=== PATIENT | male | born 1975 | race African-American/Black ===

== ENCOUNTER 2017-06-03 15:15 | Inpatient (IN) | payer MEDICARE, MEDICAID ==
[~2017-06-03] VITALS: Ht 180.3 cm; Wt 136.1 kg
[~2017-06-03 15:15] MED LIST: ABILIFY20 MG ORAL; ADVAIR 100-501 EACH INH; BIAXIN500 MG ORAL; CLINDAMYCIN HC150 MG ORAL; CYMBALTA60 MG ORAL; FLONASE1 SPRAYS NASAL; NEXIUM40 MG ORAL; PERFOROMIS20 MCG/2 M IH; PROAIR HFA8.5 GM INH
[2017-06-03] MEDS ORDERED: PROAIR HFA8.5 GM INH (15:18)
[2017-06-03] MEDS ORDERED: POTASSIUM99 M3 PO (15:18)
[2017-06-03] MEDS ORDERED: FUROSEMIDE80 M1 ORAL (15:18)
[2017-06-03] MEDS ORDERED: Solu-MEDROL 125mg Inj IVP ONE (15:30)
[2017-06-03] MEDS ORDERED: Albuterol ud Inhalation HHN ONE (15:30)
[2017-06-03] MEDS ORDERED: Ipratropium 0.02% Inh Soln 2.5ml UD HHN ONE (15:30)
[2017-06-03 15:40] VITALS: BP 122/103
[2017-06-03 16:30] LABS: ANION GAP 5 mmol/L (5-15); BLOOD UREA NITROGEN 19 mg/dL (7-18); CALCIUM 9.1 MG/DL (8.5-10.1); CARBON DIOXIDE 35 MMOL/L (21-32); CHLORIDE 101 MMOL/L (98-107); CREATININE 1.2 MG/DL (0.55-1.30); POTASSIUM 4.2 MMOL/L (3.5-5.1); SODIUM 141 MMOL/L (136-145)
--- NOTE | 2017-06-03 16:30 | Diagnostic Imaging Report ---
Indication: Shortness of breath Technique: XRAY Chest 1v Comparison: None Findings: Patient is rotated to the left. Heart is enlarged. There is evidence of prior median sternotomy. There is obscuration the entire left hemithorax. The mediastinal structures are slightly shifted to the left. There is small right pleural effusion and right basilar atelectasis/consolidation. Prominent gas bubble noted within the left hemithorax may be related to large hiatal hernia or additional congenital or acquired diaphragmatic herniation. Impression: Near complete white out of the left hemithorax. Findings may be related to large layering left pleural effusion. There is minimal leftward mediastinal shift suggesting a degree of lobar collapse. Small right pleural effusion with right basilar atelectasis/consolidation. Pneumonia in the consolidated lung can't be excluded. Cardiomegaly. Bowel loops projecting over the left chest may related to large hiatal hernia or additional congenital or acquired diaphragmatic herniation. CT could provide a better assessment.
[2017-06-03 16:31] LABS: BASOPHILS % (AUTO) 1.4 % (0.0-2.0); EOSINOPHILS % (AUTO) 4.5 % (0.0-3.0); HEMATOCRIT 42.7 % (42.0-52.0); MEAN CORPUSCULAR VOLUME 94 FL (80-99); MONOCYTES % (AUTO) 10.1 % (1.0-10.0); PLATELET COUNT 205 K/UL (150-450); RED BLOOD COUNT 4.56 M/UL (4.70-6.10); RED CELL DISTRIBUTION WIDTH 13.7 % (11.6-14.8); WHITE BLOOD COUNT 4.5 K/UL (4.8-10.8)
--- NOTE | 2017-06-03 16:39 | Emergency Room Report ---
History of Present Illness General Chief Complaint: Upper Respiratory Illness Source: EMS Present Illness HPI 42-year-old M presents ED complaining of shortness of breath. States he's been having increased shortness of breath for the last few days. Has history of COPD. Status post left lobectomy from "a mass" in his chest in 2002. h/o testicular cancer. States he's been using it was a treatment at home without relief. Also has history of CHF. Has increased leg swelling. Denies fevers or chills. Denies chest pain. No other aggravating or relieving factors. Denies any other associated symptoms Allergies: Coded Allergies: No Known Allergies (Unverified , 09/09/14) Patient History Past Medical History: CHF, COPD, other - testicular cancer Past Surgical History: none, other - L lobectomy Pertinent Family History: none Social History: Denies: smoking, alcohol use, drug use Immunizations: UTD Reviewed Nursing Documentation: PMH: Agreed, PSxH: Agreed Nursing Documentation-PMH Past Medical History: No History, Except For Hx Cardiac Problems: Yes - CHF Hx Hypertension: No Hx Pacemaker: No Hx Asthma: Yes Hx COPD: No - 1 LUNG Hx Diabetes: No Hx Cancer: Yes - lung ca, left lung removed Hx Gastrointestinal Problems: No Hx Dialysis: No Hx Neurological Problems: No Hx Cerebrovascular Accident: No Hx Seizures: No Review of Systems All Other Systems: negative except mentioned in HPI Physical Exam Vital Signs Date Time Temp Pulse Resp B/P (MAP) Pulse Ox O2 Delivery O2 Flow Rate FiO2 06/03/17 15:12 89 20 181/102 99 Room Air 06/03/17 15:40 3.0 06/03/17 15:40 98.0 06/03/17 16:13 32 Sp02 EP Interpretation: reviewed, normal General Appearance: alert, GCS 15, non-toxic, mild distress, obese Head: normocephalic, atraumatic Eyes: bilateral eye normal inspection, bilateral eye PERRL ENT: hearing grossly normal, normal pharynx, no angioedema, normal voice Neck: full range of motion, supple/symm/no masses Respiratory: decreased breath sounds, crackles, speaking full sentences, wheezing Cardiovascular #1: regular rate, rhythm, no edema Cardiovascular #2: 2+ carotid (R), 2+ carotid (L), 2+ radial (R), 2+ radial (L) , 2+ dorsalis pedis (R), 2+ dorsalis pedis (L) Gastrointestinal: normal bowel sounds, non tender, soft, non-distended, no guarding, no rebound Rectal: deferred Genitourinary: normal inspection, no CVA tenderness Musculoskeletal: back normal, gait/station normal, normal range of motion, non- tender, swelling - 2+ pitting edema bilateral LEs Neurologic: alert, oriented x3, responsive, motor strength/tone normal, sensory intact, speech normal Psychiatric: judgement/insight normal, memory normal, mood/affect normal, no suicidal/homicidal ideation Reflexes: 3+ bicep (R), 3+ bicep (L), 3+ tricep (R), 3+ tricep (L), 3+ knee (R) , 3+ knee (L) Skin: normal color, no rash, warm/dry, well hydrated Lymphatic: no adenopathy Medical Decision Making Diagnostic Impression: Primary Impression: COPD exacerbation Additional Impressions: CHF (congestive heart failure) Qualified Codes: I50.9 - Heart failure, unspecified S/P lobectomy of lung ER Course Hospital Course 42-year-old M presenting to ED with SOB. h/o COPD and CHF Differential diagnoses include: Pneumonia, CHF exacerbation, pneumothorax, fluid overload Clinical course Patient placed on stretcher. On threat monitoring analyst with stable vitals. After initial history and physical, I ordered nebulizer treatments, steroids. I ordered labs, IV fluids, EKG, chest x-ray, blood cultures, UA. Labs - no leukocytosis noted, hemoglobin/hematocrit stable, electrolytes okay, lactate okay, troponins negative, influenza negative CXR - s/p lobectomy on left, R effusion vs pna. EKG - NSR, no acute ischemic changes interpreted by me Lasix given. Steroids given. Antibiotics given. Case discussed with Dr. Coelho and he agreed to the patient to his service for further care and support I feel this is a highly complex case requiring extensive working including EKG/ Rhythm strip, Xray/CT/US, Blood/urine lab work, repeat exams while in ED, and administration of strong opiates/narcotics for pain control, admission to hospital or close patient follow up. Diagnosis - COPD exacerbation, CHF, s/p lobectomy of lung Patient admitted to telemetry in serious condition Labs Test 06/03/17 15:50 White Blood Count 4.5 K/UL (4.8-10.8) Red Blood Count 4.56 M/UL (4.70-6.10) Hemoglobin 13.0 G/DL (14.2-18.0) Hematocrit 42.7 % (42.0-52.0) Mean Corpuscular Volume 94 FL (80-99) Mean Corpuscular Hemoglobin 28.5 PG (27.0-31.0) Mean Corpuscular Hemoglobin Concent 30.4 G/DL (32.0-36.0) Red Cell Distribution Width 13.7 % (11.6-14.8) Platelet Count 205 K/UL (150-450) Mean Platelet Volume 7.1 FL (6.5-10.1) Neutrophils (%) (Auto) 69.0 % (45.0-75.0) Lymphocytes (%) (Auto) 15.0 % (20.0-45.0) Monocytes (%) (Auto) 10.1 % (1.0-10.0) Eosinophils (%) (Auto) 4.5 % (0.0-3.0) Basophils (%) (Auto) 1.4 % (0.0-2.0) Sodium Level 141 MMOL/L (136-145) Potassium Level 4.2 MMOL/L (3.5-5.1) Chloride Level 101 MMOL/L (98-107) Carbon Dioxide Level 35 MMOL/L (21-32) Anion Gap 5 mmol/L (5-15) Blood Urea Nitrogen 19 mg/dL (7-18) Creatinine 1.2 MG/DL (0.55-1.30) Estimat Glomerular Filtration Rate > 60 mL/min (>60) Glucose Level 152 MG/DL (74-106) Calcium Level 9.1 MG/DL (8.5-10.1) EKG Diagnostic Results Rate: normal Rhythm: NSR ST Segments: no acute changes ASA given to the pt in ED: No Rhythm Strip Diag. Results EP Interpretation: yes Rhythm: NSR, no PVC's, no ectopy Chest X-Ray Diagnostic Results Chest X-Ray Diagnostic Results : Chest X-Ray Ordered: Yes # of Views/Limited/Complete: 1 View Indication: Shortness of Breath EP Interpretation: Yes Interpretation: no pneumothorax, other - s/p lobectomy on left. R effusion ? PNA Impression: Other - CHF, ?PNA Electronically Signed by: Electronically signed by Michael iWlks MD Last Vital Signs Date Time Temp Pulse Resp B/P (MAP) Pulse Ox O2 Delivery O2 Flow Rate FiO2 06/03/17 16:24 84 19 100 Nasal Cannula 3.0 32 06/03/17 15:40 98.0 122/103 Status: improved Disposition: ADMITTED INPATIENT Condition: Serious Referrals: NOT CHOSEN IPA/,REFERRING (PCP) MICHAEL WILKS M.D. Jun 03, 2017 16:39
[2017-06-03 16:45] LABS: ALANINE AMINOTRANSFERASE 15 U/L (12-78); ALBUMIN 3.7 G/DL (3.4-5.0); ALBUMIN/GLOBULIN RATIO 1.1 (1.0-2.7); ALKALINE PHOSPHATASE 77 U/L (46-116); ASPARTATE AMINO TRANSFERASE 25 U/L (15-37); BILIRUBIN,TOTAL 0.4 MG/DL (0.2-1.0); CKMB 2.6 NG/ML (0.0-3.6); CREATINE KINASE 234 U/L (26-308)
[2017-06-03 17:11] VITALS: BP 110/78
[2017-06-03 17:59] LABS: APPEARANCE,URINE CLEAR; BILIRUBIN, URINE NEGATIVE (NEGATIVE); COLOR,URINE PALE YELLOW; GLUCOSE, URINE (UA) NEGATIVE (NEGATIVE); KETONES,URINE NEGATIVE (NEGATIVE); LEUKOCYTE ESTERASE ,URINE NEGATIVE (NEGATIVE); NITRITE,URINE NEGATIVE (NEGATIVE); PH,URINE 6.5 (4.5-8.0); PROTEIN,URINE NEGATIVE (NEGATIVE); UROBILINOGEN,URINE NORMAL MG/DL (0.0-1.0)
[2017-06-03 18:02] VITALS: BP 110/78
[2017-06-03] MEDS ORDERED: Nitroglycerin Subl 0.4mg tab SL PRN (18:30)
[2017-06-03] MEDS ORDERED: Promethazine/Codeine 5ml UD ORAL PRN (18:30)
[2017-06-03] MEDS ORDERED: LORazepam Inj 2mg/ml 1ml IV PRN (18:30)
[2017-06-03] MEDS ORDERED: Ketorolac 30mg Inj IV PRN (18:30)
[2017-06-03] MEDS ORDERED: ZOLPIDEM TARTRA10 MG (18:44)
[2017-06-03] MEDS ORDERED: ALBUTEROL2.5 MG/3 M INH (19:20)
[2017-06-03] MEDS ORDERED: POTASSIUM CHLO20 ME1 (19:21)
[2017-06-03] MEDS ORDERED: HYDROCODON-ACE1 EA13 (19:23)
[2017-06-03] MEDS ORDERED: NAPROXEN500 M2 (19:23)
[2017-06-03 20:00] VITALS: BP 111/68
[2017-06-03] MEDS ORDERED: Piperacillin/Tazobactam 2.25 GM in D5W 55 ML IV SCH (22:00)
[2017-06-03] MEDS: Albuterol/Ipratropium 3ml neb HHN PRN (22:00)
[2017-06-03] MEDS: Zoysn 3.37gm in NS 100ML IVPB SCH (22:18)
[2017-06-03] MEDS: Heparin 5000 units/ml inj SUBQ SCH (22:18)
[2017-06-03] MEDS: Theophylline ER 100mg ORAL SCH (22:30)
[2017-06-03] MEDS: Solu-MEDROL 125mg Inj IV SCH (23:52)
[2017-06-04] VITALS: BP 113/64
[2017-06-04 04:00] VITALS: BP 135/81
[2017-06-04] MEDS: Albuterol/Ipratropium 3ml neb HHN PRN ×3 (04:24→14:57)
[2017-06-04] MEDS: Zoysn 3.37gm in NS 100ML IVPB SCH ×3 (06:19→21:54)
[2017-06-04] MEDS: Solu-MEDROL 125mg Inj IV SCH ×3 (06:19→18:05)
[2017-06-04 08:00] VITALS: BP 129/73
[2017-06-04] MEDS: DULoxetine 30mg cap ORAL SCH (09:00)
[2017-06-04] MEDS: ARIPiprazole 10mg tab ORAL SCH (09:00)
[2017-06-04] MEDS: Theophylline ER 100mg ORAL SCH ×2 (09:41→21:55)
[2017-06-04] MEDS: Heparin 5000 units/ml inj SUBQ SCH ×2 (09:56→21:57)
[2017-06-04 12:00] VITALS: BP 106/56
--- NOTE | 2017-06-04 14:35 | History and Physical ---
History of Present Illness General Date patient seen: Jun 04, 2017 Reason for Hospitalization: Upper Respiratory Illness Present Illness HPI 42-year-old M with hx of testicular cancer more than 10 years ago, CHF, presented to ED complaining of shortness of breath. States he's been having increased shortness of breath for the last few days. Status post left lobectomy from "a mass" in his chest in 2002. Has increased leg swelling. Denies fevers or chills. Denies chest pain. Allergies: Coded Allergies: No Known Allergies (Unverified , 09/09/14) Medication History Scheduled Furosemide* (Lasix*), 80 MG ORAL DAILY, (Reported) Hydrocodone Bit/Acetaminophen 10-325* (Hydrocodon-Acetaminophn 10-325*), TID, ( Reported) Zolpidem Tartrate* (Zolpidem Tartrate*), 10 MG QHS, (Reported) Scheduled PRN Albuterol Sulfate* (Proair Hfa*), 2 PUFFS INH Q6H PRN for Bronchospasm, ( Reported) Albuterol Sulfate* (Albuterol Sulfate Hhn*), 3 ML INH Q6H PRN for Shortness of Breath, (Reported) Miscellaneous Medications Naproxen* (Naproxen*), (Reported) Potassium Chloride* (K-Dur*), (Reported) Discontinued Medications Albuterol Sulfate* (Proair Hfa*), Unknown Dose INH Q6H, (Reported) Discontinued Reason: Prescription changed Aripiprazole* (Abilify*), 20 MG ORAL DAILY, (Reported) Discontinued Reason: Pt stopped taking med Clarithromycin (Clarithromycin), 500 MG ORAL TWICE A DAY, (Reported) Discontinued Reason: Pt stopped taking med Clindamycin Hcl* (Clindamycin Hcl*), 450 MG ORAL TID Discontinued Reason: Pt stopped taking med Duloxetine Hcl* (Cymbalta*), 60 MG ORAL DAILY, (Reported) Discontinued Reason: Pt stopped taking med Esomeprazole Magnesium (Nexium), 40 MG ORAL DAILY, (Reported) Discontinued Reason: Pt stopped taking med Fluticasone Propionate (Fluticasone Propionate), 1 SPRAY NASAL DAILY, (Reported) Discontinued Reason: Pt stopped taking med Fluticasone/Salmeterol (Advair 100-50 Diskus), 1 PUFF INH BID, (Reported) Discontinued Reason: Pt stopped taking med Formoterol Fumarate (Perforomist), 20 MCG IH Q6HR PRN for Bronchospasm, ( Reported) Discontinued Reason: Pt stopped taking med Potassium Gluconate (Potassium), Unknown Dose PO, (Reported) Discontinued Reason: Pt stopped taking med Patient History Healthcare decision maker Resuscitation status Full Code Advanced Directive on File Past Medical/Surgical History Past Medical/Surgical History: (1) COPD exacerbation (2) CHF (congestive heart failure) (3) S/P lobectomy of lung Review of Systems All Other Systems: negative except mentioned in HPI Physical Exam General Appearance: WD/WN Lines, tubes and drains: peripheral Neck: non-tender, normal inspection Respiratory/Chest: chest wall non-tender, lungs clear, normal breath sounds Cardiovascular/Chest: normal peripheral pulses, normal rate Last 24 Hour Vital Signs Date Time Temp Pulse Resp B/P (MAP) Pulse Ox O2 Delivery O2 Flow Rate FiO2 06/04/17 08:37 89 20 99 Nasal Cannula 4.0 06/04/17 08:30 72 22 Nasal Cannula 3.0 32 06/04/17 08:30 80 20 99 Nasal Cannula 3.0 32 06/04/17 08:00 97.2 88 22 129/73 98 06/04/17 05:19 Nasal Cannula 4.0 06/04/17 05:19 99 Nasal Cannula 4.0 06/04/17 04:35 87 19 100 Nasal Cannula 4.0 06/04/17 04:26 82 22 99 Nasal Cannula 3.0 32 06/04/17 04:00 97.2 74 20 135/81 95 06/04/17 04:00 72 06/04/17 00:00 97.0 83 20 113/64 99 06/04/17 00:00 76 06/03/17 22:03 89 19 100 Nasal Cannula 3.0 32 06/03/17 22:00 89 22 99 Nasal Cannula 3.0 32 06/03/17 20:46 96 06/03/17 20:00 97.5 74 20 111/68 95 06/03/17 18:02 98.0 79 21 110/78 97 Nasal Cannula 3.0 32 06/03/17 17:11 98.0 82 22 110/78 98 Nasal Cannula 3.0 06/03/17 16:24 84 19 100 Nasal Cannula 3.0 32 06/03/17 16:21 70 21 Nasal Cannula 3.0 32 06/03/17 16:13 75 22 96 Nasal Cannula 3.0 32 06/03/17 15:40 98.0 84 22 122/103 100 Nasal Cannula 3.0 06/03/17 15:40 89 20 Nasal Cannula 3.0 06/03/17 15:12 89 20 181/102 99 Room Air Intake and Output 06/03/17 06/04/17 19:00 07:00 Intake Total 770 ml Balance 770 ml Intake Oral 770 ml # Voids 3 Laboratory Tests Test 06/03/17 15:50 06/03/17 17:37 White Blood Count 4.5 K/UL (4.8-10.8) L Red Blood Count 4.56 M/UL (4.70-6.10) L Hemoglobin 13.0 G/DL (14.2-18.0) L Hematocrit 42.7 % (42.0-52.0) Mean Corpuscular Volume 94 FL (80-99) Mean Corpuscular Hemoglobin 28.5 PG (27.0-31.0) Mean Corpuscular Hemoglobin Concent 30.4 G/DL (32.0-36.0) L Red Cell Distribution Width 13.7 % (11.6-14.8) Platelet Count 205 K/UL (150-450) Mean Platelet Volume 7.1 FL (6.5-10.1) Neutrophils (%) (Auto) 69.0 % (45.0-75.0) Lymphocytes (%) (Auto) 15.0 % (20.0-45.0) L Monocytes (%) (Auto) 10.1 % (1.0-10.0) H Eosinophils (%) (Auto) 4.5 % (0.0-3.0) H Basophils (%) (Auto) 1.4 % (0.0-2.0) Sodium Level 141 MMOL/L (136-145) Potassium Level 4.2 MMOL/L (3.5-5.1) Chloride Level 101 MMOL/L (98-107) Carbon Dioxide Level 35 MMOL/L (21-32) H Anion Gap 5 mmol/L (5-15) Blood Urea Nitrogen 19 mg/dL (7-18) H Creatinine 1.2 MG/DL (0.55-1.30) Estimat Glomerular Filtration Rate > 60 mL/min (>60) Glucose Level 152 MG/DL (74-106) H Lactic Acid Level 1.30 mmol/L (0.66-2.22) Calcium Level 9.1 MG/DL (8.5-10.1) Total Bilirubin 0.4 MG/DL (0.2-1.0) Aspartate Amino Transf (AST/SGOT) 25 U/L (15-37) Alanine Aminotransferase (ALT/SGPT) 15 U/L (12-78) Alkaline Phosphatase 77 U/L (46-116) Total Creatine Kinase 234 U/L (26-308) Creatine Kinase MB 2.6 NG/ML (0.0-3.6) Creatine Kinase MB Relative Index 1.1 Troponin I 0.000 ng/mL (0.000-0.056) Pro-B-Type Natriuretic Peptide 227 pg/mL (0-125) H Total Protein 7.1 G/DL (6.4-8.2) Albumin 3.7 G/DL (3.4-5.0) Globulin 3.4 g/dL Albumin/Globulin Ratio 1.1 (1.0-2.7) Urine Color Pale yellow Urine Appearance Clear Urine pH 6.5 (4.5-8.0) Urine Specific [place] 1.015 (1.005-1.035) Urine Protein Negative (NEGATIVE) Urine Glucose (UA) Negative (NEGATIVE) Urine Ketones Negative (NEGATIVE) Urine Occult Blood Negative (NEGATIVE) Urine Nitrite Negative (NEGATIVE) Urine Bilirubin Negative (NEGATIVE) Urine Urobilinogen Normal MG/DL (0.0-1.0) Urine Leukocyte Esterase Negative (NEGATIVE) Microbiology Date/Time Source Procedure Growth Status 06/03/17 16:20 Nasal Nares Influenza Types A,B Antigen (JAROD) - Final Complete Height (Feet): 5 Height (Inches): 11.00 Weight (Pounds): 300 Medications Current Medications Medications (Trade) Dose Ordered Sig/Kayla Route PRN Reason Start Time Stop Time Status Last Admin Dose Admin Albuterol/ Ipratropium (Albuterol/ Ipratropium) 3 ml EVERY 4 HOURS PRN HHN dyspnea 06/03/17 18:30 06/08/17 18:29 06/04/17 08:34 Aripiprazole (Abilify) 20 mg DAILY ORAL 06/04/17 09:00 07/04/17 08:59 Dextrose (Dextrose 50%) STAT PRN IV Hypoglycemia 06/03/17 18:30 07/03/17 18:29 Duloxetine HCl (Cymbalta) 60 mg DAILY ORAL 06/04/17 09:00 07/04/17 08:59 Heparin Sodium (Porcine) (Heparin 5000 units/ml) 5,000 units EVERY 12 HOURS SUBQ 06/03/17 21:00 07/03/17 20:59 06/04/17 09:56 Ketorolac Tromethamine (Toradol 30mg) 30 mg EVERY 8 HOURS PRN IV moderate pain 4-6 06/03/17 18:30 06/08/17 18:29 Lorazepam (Ativan 2mg/ml 1ml) 0.5 mg Q4H PRN IV For Anxiety 06/03/17 18:30 06/10/17 18:29 Methylprednisolone Sodium Succinate (Solu-MEDROL) 60 mg EVERY 6 HOURS IV 06/04/17 00:00 07/04/17 00:00 06/04/17 12:56 Morphine Sulfate (Morphine Sulfate) 2 mg EVERY 4 HOURS PRN IVP severe pain 7-10 06/03/17 18:30 06/10/17 18:29 Nitroglycerin (Ntg) 0.4 mg Q5M X 3 DOSES PRN SL Prn Chest Pain 06/03/17 18:30 07/03/17 18:29 Ondansetron HCl (Zofran) 4 mg Q6H PRN IVP Nausea & Vomiting 06/03/17 18:30 07/03/17 18:29 Piperacillin Sod/ Tazobactam Sod 3.375 gm/Sodium Chloride 110 ml @ 27.5 mls/hr Q8H IVPB 06/03/17 21:00 06/10/17 23:59 06/04/17 12:55 Promethazine HCl/ Codeine (Phenergan with Codeine) 5 ml EVERY 6 HOURS PRN ORAL cough 06/03/17 18:30 07/03/17 18:29 Temazepam (Restoril) 15 mg HSPRN PRN ORAL Insomnia 06/03/17 18:30 06/10/17 18:29 06/04/17 01:27 Theophylline ([place]-Dur) 100 mg EVERY 12 HOURS ORAL 06/03/17 21:00 07/03/17 20:59 06/04/17 09:41 Assessment/Plan Problem List: (1) Pleural effusion ICD Codes: J90 - Pleural effusion, not elsewhere classified SNOMED: 87454609 (2) CHF (congestive heart failure) ICD Codes: I50.9 - Heart failure, unspecified SNOMED: 98492445 Qualifiers: Qualified Codes: I50.9 - Heart failure, unspecified (3) COPD exacerbation ICD Codes: J44.1 - Chronic obstructive pulmonary disease with (acute) exacerbation SNOMED: 497946603 (4) S/P lobectomy of lung ICD Codes: Z90.2 - Acquired absence of lung [part of] SNOMED: 316634599, 64319645, 788061787 Assessment/Plan lasix respiratory treatment echo avoid thoracentesis, since pt might have trapped lung cardio to see. GENEVA HOOPER Jun 04, 2017 14:35
[2017-06-04 16:00] VITALS: BP 127/97
--- NOTE | 2017-06-04 16:08 | Cardiology Progress Note ---
Assessment/Plan Assessment/Plan [id number] asthma with exacerbation left sided pleural effusion ? chronicity s/p lung resection fo r testicular cancer obesity uri? (influenza seem ruled out) await echo not have sign or sx of left heart failue need echo to evaluate right and left ventricular function / pathology Objective Last 24 Hour Vital Signs Date Time Temp Pulse Resp B/P (MAP) Pulse Ox O2 Delivery O2 Flow Rate FiO2 06/04/17 15:18 90 20 Nasal Cannula 4.0 06/04/17 15:08 88 20 99 Nasal Cannula 3.0 32 06/04/17 12:00 97.5 92 22 106/56 95 06/04/17 08:37 89 20 99 Nasal Cannula 4.0 06/04/17 08:30 72 22 Nasal Cannula 3.0 32 06/04/17 08:30 80 20 99 Nasal Cannula 3.0 32 06/04/17 08:00 97.2 88 22 129/73 98 06/04/17 05:19 Nasal Cannula 4.0 06/04/17 05:19 99 Nasal Cannula 4.0 06/04/17 04:35 87 19 100 Nasal Cannula 4.0 06/04/17 04:26 82 22 99 Nasal Cannula 3.0 32 06/04/17 04:00 97.2 74 20 135/81 95 06/04/17 04:00 72 06/04/17 00:00 97.0 83 20 113/64 99 06/04/17 00:00 76 06/03/17 22:03 89 19 100 Nasal Cannula 3.0 32 06/03/17 22:00 89 22 99 Nasal Cannula 3.0 32 06/03/17 20:46 96 06/03/17 20:00 97.5 74 20 111/68 95 06/03/17 18:02 98.0 79 21 110/78 97 Nasal Cannula 3.0 32 06/03/17 17:11 98.0 82 22 110/78 98 Nasal Cannula 3.0 06/03/17 16:24 84 19 100 Nasal Cannula 3.0 32 06/03/17 16:21 70 21 Nasal Cannula 3.0 32 06/03/17 16:13 75 22 96 Nasal Cannula 3.0 32 Intake and Output 06/03/17 06/04/17 19:00 07:00 Intake Total 770 ml Balance 770 ml Intake Oral 770 ml # Voids 3 Laboratory Tests Test 1/15/18 17:37 06/04/17 15:15 Urine Color Pale yellow Urine Appearance Clear Urine pH 6.5 (4.5-8.0) Urine Specific [place] 1.015 (1.005-1.035) Urine Protein Negative (NEGATIVE) Urine Glucose (UA) Negative (NEGATIVE) Urine Ketones Negative (NEGATIVE) Urine Occult Blood Negative (NEGATIVE) Urine Nitrite Negative (NEGATIVE) Urine Bilirubin Negative (NEGATIVE) Urine Urobilinogen Normal MG/DL (0.0-1.0) Urine Leukocyte Esterase Negative (NEGATIVE) Prothrombin Time 10.7 SEC (9.30-11.50) Prothromb Time International Ratio 1.0 (0.9-1.1) Activated Partial Thromboplast Time 28 SEC (23-33) Microbiology Date/Time Source Procedure Growth Status 06/03/17 16:20 Nasal Nares Influenza Types A,B Antigen (JAROD) - Final Complete CELINA RED Jun 04, 2017 16:08
--- NOTE | 2017-06-04 17:46 | Cardiology Report ---
APPROVED REPORT EKG Measurement Heart [id number] ND 140P44 [id number] Normal sinus rhythm Left axis deviation Incomplete right bundle branch block Anterolateral infarct, age undetermined Prolonged QT Abnormal ECG
[2017-06-04 20:00] VITALS: BP 129/75
[2017-06-04] MEDS: Morphine Sulfate 2mg/ml Inj IVP PRN (22:15)
--- NOTE | 2017-06-04 22:45 | Consultation ---
DATE OF CONSULTATION: 06/04/2017 CARDIAC CONSULTATION CONSULTING PHYSICIAN: Leon Kamara M.D. REFERRING PHYSICIAN: Jacquie Coelho M.D. REASON FOR REFERRAL: Shortness of breath and questionable congestive heart failure. HISTORY OF PRESENT ILLNESS: This is a very unfortunate 42-year-old gentleman. Apparently, he has a history of testicular cancer with a lung mass that was resected a number of years ago. Ever since apparently the lung resection, he has had recurrent episodes of what he feels is an infectious process involving his lungs. He does have a history of asthma that caused him to have some shortness of breath, coughing, wheezing, and chest burning and this has occurred on multiple occasions. He has had several hospitalizations. He thinks sometimes the nasal cannula that he uses at home is somewhat dirty and he gets infected from that. Nevertheless, he has same problems here. He is not able to lay down because of the shortness of breath. He almost sleeps in a sitting position. He does not fall asleep. He has no palpitations. No dizziness or lightheadedness. PAST MEDICAL HISTORY: Positive for history of testicular cancer with lung involvement and status post resection and chemotherapy back in 2003. No history of heart attack. No stroke. No hepatitis or tuberculosis. He does have history of asthma. No emphysema. No ulcers. No kidney problems, liver problems, thyroid problems, anemia, or arthritis. He does have history of enlarged prostate. No HIV, AIDS, or blood clots anywhere. He denies any other medical problems. ALLERGIES: He has no allergies to medications. SOCIAL HISTORY: He smokes one pack per week and occasional marijuana. No other drug use and denies any alcohol. REVIEW OF SYSTEMS: GASTROINTESTINAL: Negative. GENITOURINARY: . PULMONARY: Positive for as mentioned in history of present illness. CONSTITUTIONAL: Negative. NEUROLOGIC: Negative except for the fact that occasionally he feels numbness and tingling sensation in the left palm, which he feels is related to the way he sleeps at night. PHYSICAL EXAMINATION: GENERAL: Shows to be a tall, overweight young gentleman, in no respiratory distress. NECK: Supple. No jugular venous distention. LUNGS: Appear to be showing decreased breath sounds bilaterally. There is expiratory wheezes and decreased air entry bilaterally. CARDIAC: Regular rhythm. No heaves or thrills noted. ABDOMEN: Soft and nontender. Positive bowel sounds. EXTREMITIES: A 1+ edema of the lower extremity. NEUROLOGIC: He is awake, alert, responsive, and in no apparent distress. LABORATORY VALUES: Normal sinus rhythm, normal P-wave axis, questionable right atrial enlargement, axis is about -30. There are some nonspecific T-wave changes basically inversion in I and aVL and delay in R-wave progression, which may be because of the cardiac position in the chest. Telemetry shows sinus rhythm. Urinalysis is unremarkable. Sodium 141, potassium 4.2, chloride 101, bicarb 35, BUN of 19, creatinine 1.2, and glucose of 152. Lactic acid of 1.3. Albumin of 3.7. Troponin 0. ProBNP of 227. White count is 4.5, hemoglobin 13, and platelet count of 305,000. INR and PTT are pending at this time. A chest x-ray shows near complete whiteout of the left hemithorax, may be related to large pleural effusion, minimal leftward mediastinal shift, suggests degree of collapse, small right pleural effusion, but right basilar atelectasis and consolidation, pneumonia cannot be excluded, cardiomegaly. Bowel loops particularly in the left side, maybe a large hiatal hernia or additional congenital diaphragmatic herniation. ASSESSMENT: 1. Asthma with exacerbation. 2. Testicular cancer history, status post resection. 3. Left-sided pleural effusion, whiteout questionably secondary to lung resection. 4. Obesity. PLAN: Dr. Coelho, this patient was seen in cardiac consultation. He has no evidence of myonecrosis. We will repeat the EKG and cardiac enzymes. Symptoms are one of coughing and wheezing and respiratory infection or process. He does have a pleural effusion on the left side, not clear how long this effusion has been present, whether it is a new finding from the recent process or whether related to his lung resection. I will leave that decision up to you. He will require an echocardiogram for evaluation of systolic and diastolic function and further recommendations will be provided once that information is available. Leon Kamara M.D. DR: JORDY JOB#: [id number] CC:
[2017-06-05] VITALS (7 sets, daily range): BP systolic 91–129; BP diastolic 52–86
[2017-06-05] MEDS: Solu-MEDROL 125mg Inj IV SCH ×3 (00:04→13:28)
[2017-06-05] MEDS: Zoysn 3.37gm in NS 100ML IVPB SCH ×3 (05:34→22:18)
[2017-06-05] MEDS: Theophylline ER 100mg ORAL SCH ×2 (09:59→22:18)
[2017-06-05] MEDS: DULoxetine 30mg cap ORAL SCH (10:00)
[2017-06-05] MEDS: Heparin 5000 units/ml inj SUBQ SCH ×2 (10:00→22:19)
[2017-06-05] MEDS: ARIPiprazole 10mg tab ORAL SCH (10:01)
--- NOTE | 2017-06-05 13:02 | Consultation ---
Consult Note Consult Note ID # [id number] JUANA CORBIN M.D. Jun 05, 2017 13:02
[2017-06-05] MEDS: Albuterol/Ipratropium 3ml neb HHN PRN ×2 (14:15→20:49)
--- NOTE | 2017-06-05 15:28 | Pulmonology Progress Note ---
Assessment/Plan Problems: (1) Pleural effusion (2) CHF (congestive heart failure) (3) COPD exacerbation (4) S/P lobectomy of lung Assessment/Plan increase lasix to 20 mg/hour add zoroxyline, check labs in am keep in teli check echo Subjective Interval Events: still edematous Allergies: Coded Allergies: No Known Allergies (Unverified , 09/09/14) Objective Last 24 Hour Vital Signs Date Time Temp Pulse Resp B/P (MAP) Pulse Ox O2 Delivery O2 Flow Rate FiO2 06/05/17 14:16 70 20 99 Nasal Cannula 3.0 06/05/17 12:00 75 06/05/17 12:00 97.3 70 22 127/72 98 06/05/17 08:00 98.2 73 22 91/52 98 06/05/17 08:00 71 06/05/17 07:40 Nasal Cannula 3.0 06/05/17 07:40 84 20 Nasal Cannula 3.0 06/05/17 07:40 95 Nasal Cannula 3.0 06/05/17 04:00 78 06/05/17 04:00 97.0 84 20 129/86 100 06/05/17 00:00 84 06/05/17 00:00 97.0 79 20 110/69 98 06/04/17 22:45 97.5 06/04/17 20:00 92 06/04/17 20:00 97.5 69 20 129/75 99 06/04/17 19:30 70 20 Nasal Cannula 3.0 32 06/04/17 19:30 Nasal Cannula 3.0 32 06/04/17 19:30 94 Nasal Cannula 3.0 32 06/04/17 16:00 97.2 75 22 127/97 95 Intake and Output 06/04/17 06/05/17 19:00 07:00 Intake Total 371 ml 772 ml Balance 371 ml 772 ml Intake Oral 360 ml 640 ml IV Total 11 ml 132 ml # Voids 3 General Appearance: WD/WN HEENT: atraumatic, anicteric Respiratory/Chest: lungs clear, normal breath sounds Cardiovascular: normal peripheral pulses, regular rhythm, no gallop/murmur Abdomen: soft, non tender, no organomegaly Microbiology Date/Time Source Procedure Growth Status 06/03/17 15:50 Blood Blood Culture - Preliminary NO GROWTH AFTER 24 HOURS Resulted 06/03/17 15:45 Blood Blood Culture - Preliminary NO GROWTH AFTER 24 HOURS Resulted 06/03/17 16:20 Nasal Nares Influenza Types A,B Antigen (JAROD) - Final Complete Current Medications Medications (Trade) Dose Ordered Sig/Kayla Route PRN Reason Start Time Stop Time Status Last Admin Dose Admin Albuterol/ Ipratropium (Albuterol/ Ipratropium) 3 ml EVERY 4 HOURS PRN HHN dyspnea 06/03/17 18:30 06/08/17 18:29 06/05/17 14:15 Aripiprazole (Abilify) 20 mg DAILY ORAL 06/04/17 09:00 07/04/17 08:59 Azithromycin 250 mg/Dextrose 275 ml @ 275 mls/hr Q24H IV 06/05/17 17:00 06/11/17 17:59 Dextrose (Dextrose 50%) STAT PRN IV Hypoglycemia 06/03/17 18:30 07/03/17 18:29 Duloxetine HCl (Cymbalta) 60 mg DAILY ORAL 06/04/17 09:00 07/04/17 08:59 Furosemide 100 mg/ Dextrose 110 ml @ 11 mls/hr Q10H IV 06/04/17 16:30 07/04/17 16:29 06/05/17 02:50 Heparin Sodium (Porcine) (Heparin 5000 units/ml) 5,000 units EVERY 12 HOURS SUBQ 06/03/17 21:00 07/03/17 20:59 06/05/17 10:00 Ketorolac Tromethamine (Toradol 30mg) 30 mg EVERY 8 HOURS PRN IV moderate pain 4-6 06/03/17 18:30 06/08/17 18:29 Lorazepam (Ativan 2mg/ml 1ml) 0.5 mg Q4H PRN IV For Anxiety 06/03/17 18:30 18 18:29 Methylprednisolone Sodium Succinate (Solu-MEDROL) 60 mg DAILY IV 06/06/17 09:00 07/04/17 00:00 Morphine Sulfate (Morphine Sulfate) 2 mg EVERY 4 HOURS PRN IVP severe pain 7-10 06/03/17 18:30 18 18:29 06/04/17 22:15 Nitroglycerin (Ntg) 0.4 mg Q5M X 3 DOSES PRN SL Prn Chest Pain 06/03/17 18:30 07/03/17 18:29 Ondansetron HCl (Zofran) 4 mg Q6H PRN IVP Nausea & Vomiting 06/03/17 18:30 07/03/17 18:29 Piperacillin Sod/ Tazobactam Sod 3.375 gm/Sodium Chloride 110 ml @ 27.5 mls/hr Q8H IVPB 06/03/17 21:00 06/10/17 23:59 06/05/17 13:28 Promethazine HCl/ Codeine (Phenergan with Codeine) 5 ml EVERY 6 HOURS PRN ORAL cough 06/03/17 18:30 07/03/17 18:29 Temazepam (Restoril) 15 mg HSPRN PRN ORAL Insomnia 06/03/17 18:30 06/10/17 18:29 06/04/17 01:27 Theophylline (Marco Antonio-Dur) 100 mg EVERY 12 HOURS ORAL 06/03/17 21:00 07/03/17 20:59 06/05/17 09:59 GENEVA HOOPER Jun 05, 2017 15:27
[2017-06-05] MEDS: Azithromycin 250 MG in D5W 275 ML IV SCH (17:24)
[2017-06-05] MEDS ORDERED: FUROSEMIDE IV SCH (18:00)
[2017-06-05] MEDS ORDERED: D5W IV SCH (18:00)
--- NOTE | 2017-06-05 19:45 | Cardiology Progress Note ---
Assessment/Plan Assessment/Plan asthma with exacerbation left sided pleural effusion ? chronicity s/p lung resection fo r testicular cancer obesity uri? (influenza seem ruled out) await echo still i was not able to locate the study to review in the system he feels diuretic are not helping him as usual he like iv injectio of lasix rather than the drip need echo to evaluate right and left ventricular function / pathology in on hhn on abx on steroid telel noted will reorder echo Subjective Cardiovascular: Denies: chest pain Respiratory: Reports: cough, shortness of breath, SOB with excertion, wheezing Gastrointestinal/Abdominal: Denies: abdominal pain Genitourinary: Denies: burning Subjective feel worse Objective Last 24 Hour Vital Signs Date Time Temp Pulse Resp B/P (MAP) Pulse Ox O2 Delivery O2 Flow Rate FiO2 06/05/17 16:00 97.0 85 22 128/81 97 06/05/17 16:00 80 06/05/17 14:16 70 20 99 Nasal Cannula 3.0 06/05/17 12:00 75 06/05/17 12:00 97.3 70 22 127/72 98 06/05/17 08:00 98.2 73 22 91/52 98 06/05/17 08:00 71 06/05/17 07:40 Nasal Cannula 3.0 06/05/17 07:40 84 20 Nasal Cannula 3.0 06/05/17 07:40 95 Nasal Cannula 3.0 06/05/17 04:00 78 06/05/17 04:00 97.0 84 20 129/86 100 06/05/17 00:00 84 06/05/17 00:00 97.0 79 20 110/69 98 06/04/17 22:45 97.5 06/04/17 20:00 92 06/04/17 20:00 97.5 69 20 129/75 99 General Appearance: no apparent distress Neck: supple Cardiovascular: regular rhythm Respiratory/Chest: decreased breath sounds, expiratory wheezing, inspiratory wheezing Abdomen: normal bowel sounds, non tender, soft Extremities: moderate edema Intake and Output 06/04/17 06/05/17 19:00 07:00 Intake Total 371 ml 772 ml Balance 371 ml 772 ml Intake Oral 360 ml 640 ml IV Total 11 ml 132 ml # Voids 3 Microbiology Date/Time Source Procedure Growth Status 1/15/18 15:50 Blood Blood Culture - Preliminary NO GROWTH AFTER 24 HOURS Resulted 06/03/17 15:45 Blood Blood Culture - Preliminary NO GROWTH AFTER 24 HOURS Resulted 06/03/17 16:20 Nasal Nares Influenza Types A,B Antigen (JAROD) - Final Complete CELINA RED Jun 05, 2017 19:45
--- NOTE | 2017-06-05 21:02 | Consultation ---
DATE OF CONSULTATION: 06/05/2017 INFECTIOUS DISEASES CONSULTATION CONSULTING PHYSICIAN: Levar Cat M.D. REFERRING PHYSICIAN: Jacquie Coelho M.D. REASON FOR CONSULTATION: Evaluation of the patient for pneumonia, chronic obstructive pulmonary disease exacerbation, antibiotic management. HISTORY OF PRESENT ILLNESS: The patient is a 42-year-old male, who came to the hospital with chief complaint of cough and shortness of breath, admitted with impression of chronic obstructive pulmonary disease exacerbation/pneumonia. Infectious Disease consultation has been requested for further evaluation of the patient and antibiotic management. PAST MEDICAL HISTORY: 1. COPD. 2. Asthma. 3. History of testicular cancer in 2002. 4. History of lung cancer status post left lobectomy. MEDICATIONS: Solu-Medrol and Zosyn. ALLERGIES: No known drug allergies. SOCIAL HISTORY: Significant for smoking. FAMILY HISTORY: Noncontributory. REVIEW OF SYSTEMS: A 10-point review was done and except what is mentioned above has been negative. PHYSICAL EXAMINATION: VITAL SIGNS: Temperature 97.3 degrees, pulse 83, respiratory rate 18, and blood pressure 127/72. HEENT: No pale conjunctivae. No icterus. NECK: No lymphadenopathy. CHEST: Coarse breathing sounds. HEART: S1 and S2. ABDOMEN: Soft. EXTREMITIES: No cyanosis. NEUROLOGIC: Awake and alert. LABORATORY AND DIAGNOSTIC DATA: White blood cell is 4.5, hemoglobin , and platelets 205. UA unremarkable. BUN 19 and creatinine 1.2. Liver function tests are unremarkable. Influenza A and B negative. Blood culture negative. Chest x-ray showed bowel loop projecting over left chest due to large hiatal hernia. ASSESSMENT: The patient is a 42-year-old male with 1. Pneumonia/chronic obstructive pulmonary disease exacerbation. 2. Afebrile. 3. Normal white blood cells. PLAN: 1. We will continue the patient on Zosyn, add Zithromax for atypical coverage. 2. Monitor CBC. 3. Monitor BMP. 4. Monitor cultures (blood, sputum). 5. We will check human immunodeficiency virus test. 6. Based on the patient's clinical course and labs, we will do further recommendation. Thank you, Dr. Coelho, for allowing me to participate in the care of this patient. I will follow the patient with you during this hospitalization. Levar Cat M.D. DR: DARIN JOB#: [id number] CC:
[2017-06-05 21:24] LABS: ANION GAP 7 mmol/L (5-15); BLOOD UREA NITROGEN 42 mg/dL (7-18); CALCIUM 9.5 MG/DL (8.5-10.1); CARBON DIOXIDE 36 MMOL/L (21-32); CHLORIDE 94 MMOL/L (98-107); CREATININE 1.9 MG/DL (0.55-1.30); SODIUM 137 MMOL/L (136-145)
[2017-06-05] MEDS: Morphine Sulfate 2mg/ml Inj IVP PRN (23:28)
[2017-06-06] VITALS: BP 126/77
[2017-06-06] MEDS: Albuterol/Ipratropium 3ml neb HHN PRN ×3 (02:53→19:10)
[2017-06-06 03:26] LABS: HEMOGLOBIN 14.3 G/DL (14.2-18.0); MEAN CORPUSCULAR VOLUME 94 FL (80-99); PLATELET COUNT 297 K/UL (150-450); WHITE BLOOD COUNT 19.2 K/UL (4.8-10.8)
[2017-06-06] MEDS: Morphine Sulfate 2mg/ml Inj IVP PRN ×3 (03:38→21:22)
[2017-06-06 03:43] LABS: ALANINE AMINOTRANSFERASE 17 U/L (12-78); ALBUMIN/GLOBULIN RATIO 0.9 (1.0-2.7); ALKALINE PHOSPHATASE 85 U/L (46-116); ANION GAP 12 mmol/L (5-15); ASPARTATE AMINO TRANSFERASE 11 U/L (15-37); BILIRUBIN,TOTAL 0.3 MG/DL (0.2-1.0); BLOOD UREA NITROGEN 40 mg/dL (7-18); CALCIUM 9.7 MG/DL (8.5-10.1); CARBON DIOXIDE 32 MMOL/L (21-32); CHLORIDE 91 MMOL/L (98-107); CREATININE 1.8 MG/DL (0.55-1.30); PHOSPHORUS 6.2 MG/DL (2.5-4.9); POTASSIUM 3.4 MMOL/L (3.5-5.1); SODIUM 135 MMOL/L (136-145)
[2017-06-06 04:00] VITALS: BP 129/91
[2017-06-06] MEDS: FUROSEMIDE IV SCH ×6 (05:00→23:51)
[2017-06-06] MEDS: D5W IV SCH ×6 (05:00→23:51)
[2017-06-06] MEDS: Zoysn 3.37gm in NS 100ML IVPB SCH ×3 (05:11→21:34)
[2017-06-06] MEDS: Heparin 5000 units/ml inj SUBQ SCH ×2 (06:23→17:37)
[2017-06-06 08:00] VITALS: BP 106/57
[2017-06-06] MEDS: Theophylline ER 100mg ORAL SCH ×2 (08:06→21:22)
[2017-06-06] MEDS: DULoxetine 30mg cap ORAL SCH (08:07)
[2017-06-06] MEDS: ARIPiprazole 10mg tab ORAL SCH (08:07)
[2017-06-06] MEDS ORDERED: Solu-MEDROL 125mg Inj IV SCH (09:00)
[2017-06-06 12:00] VITALS: BP 108/62
--- NOTE | 2017-06-06 12:37 | Cardiology Report ---
APPROVED REPORT EKG Measurement Heart [id number] Sinus rhythm with marked sinus arrhythmia Right atrial enlargement Left axis deviation Incomplete right bundle branch block Moderate voltage criteria for LVH, may be normal variant Possible Lateral infarct, age undetermined Inferior infarct, age undetermined Abnormal ECG
--- NOTE | 2017-06-06 12:48 | Cardiology Report ---
APPROVED REPORT EXAM: Two-dimensional and M-mode echocardiogram with Doppler and color Doppler. INDICATION Congestive Heart Failure M-Mode DIMENSIONS IVSd0.6 (0.7-1.1cm)Left Atrium (MM)4.1 (1.6-4.0cm) LVDd4.7 (3.5-5.6cm)Aortic Root2.7 (2.0-3.7cm) PWd1.0 (0.7-1.1cm)Aortic Cusp Exc.2.0 (1.5-2.0cm) LVDs3.1 (2.5-4.0cm) PWs1.2 cm Technically limited and difficult study due to poor acoustical windows. Lack of apical windows. Normal left ventricular chamber size, systolic function and wall motion. Left ventricular ejection fraction estimated to be 60-65% to extend visualized. No evidence of left ventricular hypertrophy. No evidence of pericardial or pleural effusion. Focal aortic valve sclerosis with adequate cusp excursion. Thickened mitral valve leaflets with normal excursion. Mild mitral annulus and aortic root calcification. Pulmonic valve not well visualized. Normal tricuspid valve structure. IVC is normal in size and collapsible with respiration. A color flow and spectral Doppler study was performed and revealed: Trace tricuspid regurgitation.
--- NOTE | 2017-06-06 12:58 | Pulmonology Progress Note ---
Assessment/Plan Problems: (1) Pleural effusion (2) CHF (congestive heart failure) (3) COPD exacerbation (4) S/P lobectomy of lung Assessment/Plan had 5000 cc output bun/creaine rising US doppler of legs increase lasix to 20 mg/hour add zoroxyline, renal US cxr bnp in am check labs in am keep in teli check echo Nephrology to see. Urine electrolytes Subjective ROS Limited/Unobtainable: No Constitutional: Reports: no symptoms HEENT: Repors: no symptoms Respiratory: Reports: no symptoms Allergies: Coded Allergies: No Known Allergies (Unverified , 09/09/14) Objective Last 24 Hour Vital Signs Date Time Temp Pulse Resp B/P (MAP) Pulse Ox O2 Delivery O2 Flow Rate FiO2 06/06/17 11:18 78 20 100 Nasal Cannula 3.0 32 06/06/17 11:08 75 16 98 Nasal Cannula 3.0 06/06/17 08:00 97.4 71 18 106/57 100 Nasal Cannula 3.0 06/06/17 06:45 Nasal Cannula 3.0 06/06/17 06:45 98 Nasal Cannula 3.0 06/06/17 06:45 86 17 Nasal Cannula 3.0 06/06/17 04:00 83 06/06/17 04:00 97.0 86 20 129/91 100 Nasal Cannula 06/06/17 02:53 70 20 95 Nasal Cannula 3.0 32 06/06/17 02:53 78 20 98 Nasal Cannula 3.0 32 06/06/17 00:00 74 06/06/17 00:00 98.0 81 20 126/77 94 06/05/17 20:52 80 20 100 Nasal Cannula 3.0 32 06/05/17 20:49 72 20 98 Nasal Cannula 3.0 32 06/05/17 20:00 89 06/05/17 20:00 98.0 94 20 121/81 93 06/05/17 19:30 98 Nasal Cannula 3.0 32 06/05/17 19:30 72 20 Nasal Cannula 3.0 32 06/05/17 19:30 Nasal Cannula 3.0 32 06/05/17 16:00 97.0 85 22 128/81 97 06/05/17 16:00 80 06/05/17 14:16 70 20 99 Nasal Cannula 3.0 Intake and Output 06/05/17 06/06/17 19:00 07:00 Intake Total 360 ml Output Total 1500 ml 4000 ml Balance -1140 ml -4000 ml Intake Oral 360 ml Output Urine Total 1500 ml 4000 ml # Voids 3 General Appearance: WD/WN Respiratory/Chest: chest wall non-tender, lungs clear Cardiovascular: normal peripheral pulses, normal rate Abdomen: normal bowel sounds, non distended Extremities: no cyanosis, other - + edema Microbiology Date/Time Source Procedure Growth Status 06/03/17 15:50 Blood Blood Culture - Preliminary NO GROWTH AFTER 48 HOURS Resulted 06/03/17 15:45 Blood Blood Culture - Preliminary NO GROWTH AFTER 48 HOURS Resulted 06/05/17 11:35 Sputum Gram Stain - Final Resulted 06/05/17 11:35 Sputum Sputum Culture Pending Resulted 06/03/17 16:20 Nasal Nares Influenza Types A,B Antigen (JAROD) - Final Complete Laboratory Tests 06/05/17 21:00: Sodium Level 137, Potassium Level 4.0, Chloride Level 94L, Carbon Dioxide Level 36H, Anion Gap 7, Blood Urea Nitrogen 42H, Creatinine 1.9H, Estimat Glomerular Filtration Rate 47.9, Glucose Level 465H, Calcium Level 9.5, Troponin I 0.001 06/06/17 03:00: Sodium Level 135L, Potassium Level 3.4L, Chloride Level 91L, Carbon Dioxide Level 32, Anion Gap 12, Blood Urea Nitrogen 40H, Creatinine 1.8H, Estimat Glomerular Filtration Rate 50.9, Glucose Level 401H, Calcium Level 9.7, Troponin I 0.000, White Blood Count 19.2H, Red Blood Count 4.80, Hemoglobin 14.3 , Hematocrit 45.0, Mean Corpuscular Volume 94, Mean Corpuscular Hemoglobin 29.8 , Mean Corpuscular Hemoglobin Concent 31.8L, Red Cell Distribution Width 14.0, Platelet Count 297, Mean Platelet Volume 7.8, Neutrophils (%) (Auto) , Lymphocytes (%) (Auto) , Monocytes (%) (Auto) , Eosinophils (%) (Auto) , Basophils (%) (Auto) , Differential Total Cells Counted 100, Neutrophils % ( Manual) 90H, Lymphocytes % (Manual) 5L, Monocytes % (Manual) 2, Eosinophils % ( Manual) 0, Basophils % (Manual) 0, Band Neutrophils 3, Platelet Estimate Adequate, Platelet Morphology Normal, Phosphorus Level 6.2H, Magnesium Level 2.4 , Total Bilirubin 0.3, Aspartate Amino Transf (AST/SGOT) 11L, Alanine Aminotransferase (ALT/SGPT) 17, Alkaline Phosphatase 85, Pro-B-Type Natriuretic Peptide 405H, Total Protein 8.7H, Albumin 4.0, Globulin 4.7, Albumin/Globulin Ratio 0.9L, HIV (1&2) Antibody Rapid Negative 06/06/17 11:00: Troponin I 0.000 Current Medications Medications (Trade) Dose Ordered Sig/Kayla Route PRN Reason Start Time Stop Time Status Last Admin Dose Admin Albuterol/ Ipratropium (Albuterol/ Ipratropium) 3 ml EVERY 4 HOURS PRN HHN dyspnea 06/03/17 18:30 06/08/17 18:29 06/06/17 11:08 Aripiprazole (Abilify) 20 mg DAILY ORAL 06/04/17 09:00 07/04/17 08:59 Azithromycin 250 mg/Dextrose 275 ml @ 275 mls/hr Q24H IV 06/05/17 17:00 06/11/17 17:59 06/05/17 17:24 Dextrose (Dextrose 50%) STAT PRN IV Hypoglycemia 06/03/17 18:30 07/03/17 18:29 Duloxetine HCl (Cymbalta) 60 mg DAILY ORAL 06/04/17 09:00 07/04/17 08:59 Furosemide 100 mg/ Dextrose 100 ml @ 22 mls/hr Q4H33M IV 06/06/17 05:00 07/06/17 04:59 06/06/17 07:26 Heparin Sodium (Porcine) (Heparin 5000 units/ml) 5,000 units Q12H SUBQ 06/06/17 06:00 07/06/17 05:59 06/06/17 06:23 Lorazepam (Ativan 2mg/ml 1ml) 0.5 mg Q4H PRN IV For Anxiety 06/03/17 18:30 06/10/17 18:29 Methylprednisolone Sodium Succinate (Solu-MEDROL) 40 mg DAILY IV 06/07/17 09:00 07/07/17 08:59 UNV Metolazone (Zaroxolyn) 5 mg DAILY ORAL 06/05/17 15:30 07/05/17 15:29 06/05/17 17:24 Morphine Sulfate (Morphine Sulfate) 2 mg EVERY 4 HOURS PRN IVP severe pain 7-10 06/03/17 18:30 06/10/17 18:29 06/06/17 08:06 Nitroglycerin (Ntg) 0.4 mg Q5M X 3 DOSES PRN SL Prn Chest Pain 06/03/17 18:30 07/03/17 18:29 Ondansetron HCl (Zofran) 4 mg Q6H PRN IVP Nausea & Vomiting 06/03/17 18:30 07/03/17 18:29 Piperacillin Sod/ Tazobactam Sod 3.375 gm/Sodium Chloride 110 ml @ 27.5 mls/hr Q8H IVPB 06/03/17 21:00 06/10/17 23:59 06/06/17 05:11 Promethazine HCl/ Codeine (Phenergan with Codeine) 5 ml EVERY 6 HOURS PRN ORAL cough 06/03/17 18:30 07/03/17 18:29 06/06/17 03:06 Temazepam (Restoril) 15 mg HSPRN PRN ORAL Insomnia 06/03/17 18:30 06/10/17 18:29 06/04/17 01:27 Theophylline (Marco Antonio-Dur) 100 mg EVERY 12 HOURS ORAL 06/03/17 21:00 07/03/17 20:59 06/06/17 08:06 GENEVA HOOPER Jun 06, 2017 12:58
[2017-06-06 13:29] LABS: CREATINE KINASE 111 U/L (26-308)
[2017-06-06 16:00] VITALS: BP 110/70
[2017-06-06] MEDS: Azithromycin 250 MG in D5W 275 ML IV SCH (17:36)
--- NOTE | 2017-06-06 18:20 | Cardiology Progress Note ---
Assessment/Plan Assessment/Plan asthma with exacerbation left sided pleural effusion ? chronicity s/p lung resection fo r testicular cancer obesity uri? (influenza seem ruled out) echo noted lv fucntion normal poor qulity echo in on hhn on lasix drip on abx on steroid telel noted contienu diuretic 5 liter zaynab yest!!! i think lugn issue relaed to asthma edema related to right heart issue Subjective Cardiovascular: Denies: chest pain, lightheadedness Respiratory: Reports: shortness of breath, SOB with excertion Gastrointestinal/Abdominal: Denies: abdominal pain Genitourinary: Reports: burning Subjective sig edema Objective Last 24 Hour Vital Signs Date Time Temp Pulse Resp B/P (MAP) Pulse Ox O2 Delivery O2 Flow Rate FiO2 06/06/17 16:00 73 06/06/17 16:00 97.1 80 18 110/70 100 Nasal Cannula 3.0 06/06/17 12:00 82 06/06/17 12:00 97.6 75 19 108/62 100 Nasal Cannula 3.0 06/06/17 11:18 78 20 100 Nasal Cannula 3.0 32 06/06/17 11:08 75 16 98 Nasal Cannula 3.0 06/06/17 08:00 72 06/06/17 08:00 97.4 71 18 106/57 100 Nasal Cannula 3.0 06/06/17 06:45 Nasal Cannula 3.0 06/06/17 06:45 98 Nasal Cannula 3.0 06/06/17 06:45 86 17 Nasal Cannula 3.0 06/06/17 04:00 83 06/06/17 04:00 97.0 86 20 129/91 100 Nasal Cannula 06/06/17 02:53 70 20 95 Nasal Cannula 3.0 32 06/06/17 02:53 78 20 98 Nasal Cannula 3.0 32 06/06/17 00:00 74 06/06/17 00:00 98.0 81 20 126/77 94 06/05/17 20:52 80 20 100 Nasal Cannula 3.0 32 06/05/17 20:49 72 20 98 Nasal Cannula 3.0 32 06/05/17 20:00 89 06/05/17 20:00 98.0 94 20 121/81 93 06/05/17 19:30 98 Nasal Cannula 3.0 32 1/17/18 19:30 72 20 Nasal Cannula 3.0 32 06/05/17 19:30 Nasal Cannula 3.0 32 General Appearance: no apparent distress, alert Neck: supple Cardiovascular: normal rate, regular rhythm Respiratory/Chest: decreased breath sounds Abdomen: normal bowel sounds, non tender, soft Extremities: moderate edema Intake and Output 06/05/17 06/06/17 19:00 07:00 Intake Total 360 ml Output Total 1500 ml 4000 ml Balance -1140 ml -4000 ml Intake Oral 360 ml Output Urine Total 1500 ml 4000 ml # Voids 3 Laboratory Tests Test 06/05/17 21:00 06/06/17 03:00 06/06/17 11:00 Sodium Level 137 MMOL/L (136-145) 135 MMOL/L (136-145) L Potassium Level 4.0 MMOL/L (3.5-5.1) 3.4 MMOL/L (3.5-5.1) L Chloride Level 94 MMOL/L (98-107) L 91 MMOL/L (98-107) L Carbon Dioxide Level 36 MMOL/L (21-32) H 32 MMOL/L (21-32) Anion Gap 7 mmol/L (5-15) 12 mmol/L (5-15) Blood Urea Nitrogen 42 mg/dL (7-18) H 40 mg/dL (7-18) H Creatinine 1.9 MG/DL (0.55-1.30) H 1.8 MG/DL (0.55-1.30) H Estimat Glomerular Filtration Rate 47.9 mL/min (>60) 50.9 mL/min (>60) Glucose Level 465 MG/DL (74-106) H 401 MG/DL (74-106) H Calcium Level 9.5 MG/DL (8.5-10.1) 9.7 MG/DL (8.5-10.1) Troponin I 0.001 ng/mL (0.000-0.056) 0.000 ng/mL (0.000-0.056) 0.000 ng/mL (0.000-0.056) White Blood Count 19.2 K/UL (4.8-10.8) H Red Blood Count 4.80 M/UL (4.70-6.10) Hemoglobin 14.3 G/DL (14.2-18.0) Hematocrit 45.0 % (42.0-52.0) Mean Corpuscular Volume 94 FL (80-99) Mean Corpuscular Hemoglobin 29.8 PG (27.0-31.0) Mean Corpuscular Hemoglobin Concent 31.8 G/DL (32.0-36.0) L Red Cell Distribution Width 14.0 % (11.6-14.8) Platelet Count 297 K/UL (150-450) Mean Platelet Volume 7.8 FL (6.5-10.1) Neutrophils (%) (Auto) % (45.0-75.0) Lymphocytes (%) (Auto) % (20.0-45.0) Monocytes (%) (Auto) % (1.0-10.0) Eosinophils (%) (Auto) % (0.0-3.0) Basophils (%) (Auto) % (0.0-2.0) Differential Total Cells Counted 100 Neutrophils % (Manual) 90 % (45-75) H Lymphocytes % (Manual) 5 % (20-45) L Monocytes % (Manual) 2 % (1-10) Eosinophils % (Manual) 0 % (0-3) Basophils % (Manual) 0 % (0-2) Band Neutrophils 3 % (0-8) Platelet Estimate Adequate Platelet Morphology Normal Phosphorus Level 6.2 MG/DL (2.5-4.9) H Magnesium Level 2.4 MG/DL (1.8-2.4) Total Bilirubin 0.3 MG/DL (0.2-1.0) Aspartate Amino Transf (AST/SGOT) 11 U/L (15-37) L Alanine Aminotransferase (ALT/SGPT) 17 U/L (12-78) Alkaline Phosphatase 85 U/L (46-116) Pro-B-Type Natriuretic Peptide 405 pg/mL (0-125) H Total Protein 8.7 G/DL (6.4-8.2) H Albumin 4.0 G/DL (3.4-5.0) Globulin 4.7 g/dL Albumin/Globulin Ratio 0.9 (1.0-2.7) L HIV (1&2) Antibody Rapid Negative (NEGATIVE) Uric Acid 6.6 MG/DL (2.6-7.2) Total Creatine Kinase 111 U/L (26-308) Microbiology Date/Time Source Procedure Growth Status 06/05/17 11:35 Sputum Gram Stain - Final Resulted 06/05/17 11:35 Sputum Sputum Culture Pending Resulted CELINA RED Jun 06, 2017 18:20
[2017-06-06 20:00] VITALS: BP 100/61
--- NOTE | 2017-06-06 21:44 | Infectious Diseases Prog Note ---
Assessment/Plan Assessment/Plan ASSESSMENT: The patient is a 42-year-old male with Pneumonia/chronic obstructive pulmonary disease exacerbation. Afebrile leukocytosis ( on steroids ) HIV: neg COPD. Asthma. History of testicular cancer in 2002. History of lung cancer status post left lobectomy PLAN: \ cont pt on Zosyn and Zithromax d# 2 Monitor CBC. Monitor BMP Monitor cultures (blood, sputum) Subjective Constitutional: Denies: no symptoms, fever, chills, fatigue, anorexia, drenching sweats, other Allergies: Coded Allergies: No Known Allergies (Unverified , 09/09/14) Objective Vital Signs Last 24 Hour Vital Signs Date Time Temp Pulse Resp B/P (MAP) Pulse Ox O2 Delivery O2 Flow Rate FiO2 06/06/17 20:00 97.7 83 18 100/61 100 06/06/17 19:20 108 20 99 Nasal Cannula 3.0 32 06/06/17 19:10 118 22 Nasal Cannula 3.0 32 06/06/17 19:10 99 Nasal Cannula 3.0 32 06/06/17 19:10 117 22 99 Nasal Cannula 3.0 32 06/06/17 19:10 Nasal Cannula 3.0 32 06/06/17 16:00 73 06/06/17 16:00 97.1 80 18 110/70 100 Nasal Cannula 3.0 06/06/17 12:00 82 06/06/17 12:00 97.6 75 19 108/62 100 Nasal Cannula 3.0 06/06/17 11:18 78 20 100 Nasal Cannula 3.0 32 06/06/17 11:08 75 16 98 Nasal Cannula 3.0 06/06/17 08:00 72 06/06/17 08:00 97.4 71 18 106/57 100 Nasal Cannula 3.0 06/06/17 06:45 Nasal Cannula 3.0 06/06/17 06:45 98 Nasal Cannula 3.0 06/06/17 06:45 86 17 Nasal Cannula 3.0 06/06/17 04:00 83 06/06/17 04:00 97.0 86 20 129/91 100 Nasal Cannula 06/06/17 02:53 70 20 95 Nasal Cannula 3.0 32 06/06/17 02:53 78 20 98 Nasal Cannula 3.0 32 06/06/17 00:00 74 06/06/17 00:00 98.0 81 20 126/77 94 Height (Feet): 5 Height (Inches): 11.00 Weight (Pounds): 300 HEENT: anicteric Respiratory/Chest: no accessory muscle use Cardiovascular: regular rhythm Abdomen: no organomegaly Microbiology Date/Time Source Procedure Growth Status 06/05/17 11:35 Sputum Gram Stain - Final Resulted 06/05/17 11:35 Sputum Sputum Culture Pending Resulted Laboratory Tests Test 06/06/17 03:00 06/06/17 11:00 White Blood Count 19.2 K/UL (4.8-10.8) H Red Blood Count 4.80 M/UL (4.70-6.10) Hemoglobin 14.3 G/DL (14.2-18.0) Hematocrit 45.0 % (42.0-52.0) Mean Corpuscular Volume 94 FL (80-99) Mean Corpuscular Hemoglobin 29.8 PG (27.0-31.0) Mean Corpuscular Hemoglobin Concent 31.8 G/DL (32.0-36.0) L Red Cell Distribution Width 14.0 % (11.6-14.8) Platelet Count 297 K/UL (150-450) Mean Platelet Volume 7.8 FL (6.5-10.1) Neutrophils (%) (Auto) % (45.0-75.0) Lymphocytes (%) (Auto) % (20.0-45.0) Monocytes (%) (Auto) % (1.0-10.0) Eosinophils (%) (Auto) % (0.0-3.0) Basophils (%) (Auto) % (0.0-2.0) Differential Total Cells Counted 100 Neutrophils % (Manual) 90 % (45-75) H Lymphocytes % (Manual) 5 % (20-45) L Monocytes % (Manual) 2 % (1-10) Eosinophils % (Manual) 0 % (0-3) Basophils % (Manual) 0 % (0-2) Band Neutrophils 3 % (0-8) Platelet Estimate Adequate Platelet Morphology Normal Sodium Level 135 MMOL/L (136-145) L Potassium Level 3.4 MMOL/L (3.5-5.1) L Chloride Level 91 MMOL/L (98-107) L Carbon Dioxide Level 32 MMOL/L (21-32) Anion Gap 12 mmol/L (5-15) Blood Urea Nitrogen 40 mg/dL (7-18) H Creatinine 1.8 MG/DL (0.55-1.30) H Estimat Glomerular Filtration Rate 50.9 mL/min (>60) Glucose Level 401 MG/DL (74-106) H Calcium Level 9.7 MG/DL (8.5-10.1) Phosphorus Level 6.2 MG/DL (2.5-4.9) H Magnesium Level 2.4 MG/DL (1.8-2.4) Total Bilirubin 0.3 MG/DL (0.2-1.0) Aspartate Amino Transf (AST/SGOT) 11 U/L (15-37) L Alanine Aminotransferase (ALT/SGPT) 17 U/L (12-78) Alkaline Phosphatase 85 U/L (46-116) Troponin I 0.000 ng/mL (0.000-0.056) 0.000 ng/mL (0.000-0.056) Pro-B-Type Natriuretic Peptide 405 pg/mL (0-125) H Total Protein 8.7 G/DL (6.4-8.2) H Albumin 4.0 G/DL (3.4-5.0) Globulin 4.7 g/dL Albumin/Globulin Ratio 0.9 (1.0-2.7) L HIV (1&2) Antibody Rapid Negative (NEGATIVE) Uric Acid 6.6 MG/DL (2.6-7.2) Total Creatine Kinase 111 U/L (26-308) Current Medications Medications (Trade) Dose Ordered Sig/Kayla Route PRN Reason Start Time Stop Time Status Last Admin Dose Admin Albuterol/ Ipratropium (Albuterol/ Ipratropium) 3 ml EVERY 4 HOURS PRN HHN dyspnea 06/03/17 18:30 06/08/17 18:29 06/06/17 19:10 Aripiprazole (Abilify) 20 mg DAILY ORAL 06/04/17 09:00 07/04/17 08:59 Azithromycin 250 mg/Dextrose 275 ml @ 275 mls/hr Q24H IV 06/05/17 17:00 06/11/17 17:59 06/06/17 17:36 Dextrose (Dextrose 50%) STAT PRN IV Hypoglycemia 06/03/17 18:30 07/03/17 18:29 Duloxetine HCl (Cymbalta) 60 mg DAILY ORAL 06/04/17 09:00 07/04/17 08:59 Furosemide 100 mg/ Dextrose 100 ml @ 22 mls/hr Q4H33M IV 06/06/17 05:00 07/06/17 04:59 06/06/17 19:30 Heparin Sodium (Porcine) (Heparin 5000 units/ml) 5,000 units Q12H SUBQ 06/06/17 06:00 07/06/17 05:59 06/06/17 17:37 Lorazepam (Ativan 2mg/ml 1ml) 0.5 mg Q4H PRN IV For Anxiety 06/03/17 18:30 06/10/17 18:29 Metolazone (Zaroxolyn) 5 mg DAILY ORAL 06/05/17 15:30 07/05/17 15:29 06/05/17 17:24 Morphine Sulfate (Morphine Sulfate) 2 mg EVERY 4 HOURS PRN IVP severe pain 7-10 06/03/17 18:30 06/10/17 18:29 06/06/17 21:22 Nitroglycerin (Ntg) 0.4 mg Q5M X 3 DOSES PRN SL Prn Chest Pain 06/03/17 18:30 07/03/17 18:29 Ondansetron HCl (Zofran) 4 mg Q6H PRN IVP Nausea & Vomiting 06/03/17 18:30 07/03/17 18:29 Piperacillin Sod/ Tazobactam Sod 3.375 gm/Sodium Chloride 110 ml @ 27.5 mls/hr Q8H IVPB 06/03/17 21:00 06/10/17 23:59 06/06/17 21:34 Promethazine HCl/ Codeine (Phenergan with Codeine) 5 ml EVERY 6 HOURS PRN ORAL cough 06/03/17 18:30 07/03/17 18:29 06/06/17 03:06 Temazepam (Restoril) 15 mg HSPRN PRN ORAL Insomnia 06/03/17 18:30 06/10/17 18:29 06/04/17 01:27 Theophylline (Marco Antonio-Dur) 100 mg EVERY 12 HOURS ORAL 06/03/17 21:00 07/03/17 20:59 06/06/17 21:22 JUANA CORBIN M.D. Jun 06, 2017 21:44
[2017-06-07] VITALS: BP 110/64
[2017-06-07] MEDS: Morphine Sulfate 2mg/ml Inj IVP PRN ×5 (01:26→21:25)
[2017-06-07] MEDS: FUROSEMIDE IV SCH ×3 (03:45→12:26)
[2017-06-07] MEDS: D5W IV SCH ×3 (03:45→12:26)
[2017-06-07 04:00] VITALS: BP 99/56
[2017-06-07] MEDS: Zoysn 3.37gm in NS 100ML IVPB SCH (06:37)
[2017-06-07] MEDS: Heparin 5000 units/ml inj SUBQ SCH ×2 (06:43→17:21)
[2017-06-07] MEDS: Theophylline ER 100mg ORAL SCH ×3 (07:55→20:43)
[2017-06-07] MEDS: ARIPiprazole 10mg tab ORAL SCH ×2 (07:55→08:03)
[2017-06-07] MEDS: DULoxetine 30mg cap ORAL SCH ×2 (07:56→08:03)
[2017-06-07 08:00] VITALS: BP 135/40
[2017-06-07 08:10] LABS: HEMATOCRIT 46.7 % (42.0-52.0); HEMOGLOBIN 14.7 G/DL (14.2-18.0); MEAN CORPUSCULAR VOLUME 93 FL (80-99); PLATELET COUNT 291 K/UL (150-450); RED BLOOD COUNT 5.03 M/UL (4.70-6.10); RED CELL DISTRIBUTION WIDTH 13.6 % (11.6-14.8); WHITE BLOOD COUNT 15.9 K/UL (4.8-10.8)
[2017-06-07] MEDS ORDERED: Solu-MEDROL 40mg Inj IVP SCH (09:00)
[2017-06-07 10:36] LABS: ALANINE AMINOTRANSFERASE 13 U/L (12-78); ALBUMIN 4.1 G/DL (3.4-5.0); ALKALINE PHOSPHATASE 94 U/L (46-116); ANION GAP 13 mmol/L (5-15); ASPARTATE AMINO TRANSFERASE 17 U/L (15-37); BILIRUBIN,TOTAL 0.3 MG/DL (0.2-1.0); BLOOD UREA NITROGEN 50 mg/dL (7-18); CALCIUM 10.2 MG/DL (8.5-10.1); CARBON DIOXIDE 40 MMOL/L (21-32); CHLORIDE 83 MMOL/L (98-107); CREATININE 1.9 MG/DL (0.55-1.30); POTASSIUM 3.2 MMOL/L (3.5-5.1); SODIUM 135 MMOL/L (136-145)
--- NOTE | 2017-06-07 11:13 | Infectious Diseases Prog Note ---
Assessment/Plan Assessment/Plan ASSESSMENT: The patient is a 42-year-old male with Pneumonia/chronic obstructive pulmonary disease exacerbation. Scx: Nl tami Afebrile leukocytosis ( SP steroids ) improving HIV: neg ISACC COPD. Asthma. History of testicular cancer in 2002. History of lung cancer status post left lob/Pneumectomy PLAN: \ cont pt Zithromax d# 3 /5 and DC on Zosyn D# 3 Monitor CBC. Monitor BMP Monitor cultures (blood,) Subjective Allergies: Coded Allergies: No Known Allergies (Unverified , 09/09/14) Subjective comfortable Objective Vital Signs Last 24 Hour Vital Signs Date Time Temp Pulse Resp B/P (MAP) Pulse Ox O2 Delivery O2 Flow Rate FiO2 06/07/17 08:55 97.0 06/07/17 08:08 Nasal Cannula 3.0 32 06/07/17 08:08 89 20 Nasal Cannula 3.0 32 06/07/17 08:08 99 Nasal Cannula 3.0 32 06/07/17 08:00 97.2 119 22 135/40 96 Nasal Cannula 4.0 06/07/17 08:00 89 06/07/17 04:00 97.0 73 20 99/56 98 06/07/17 04:00 73 06/07/17 00:00 97.0 72 18 110/64 100 06/07/17 00:00 75 06/06/17 20:00 97.7 83 18 100/61 100 06/06/17 20:00 91 06/06/17 19:20 108 20 99 Nasal Cannula 3.0 32 06/06/17 19:10 118 22 Nasal Cannula 3.0 32 06/06/17 19:10 99 Nasal Cannula 3.0 32 06/06/17 19:10 117 22 99 Nasal Cannula 3.0 32 06/06/17 19:10 Nasal Cannula 3.0 32 06/06/17 16:00 73 06/06/17 16:00 97.1 80 18 110/70 100 Nasal Cannula 3.0 06/06/17 12:00 82 06/06/17 12:00 97.6 75 19 108/62 100 Nasal Cannula 3.0 06/06/17 11:18 78 20 100 Nasal Cannula 3.0 32 Height (Feet): 5 Height (Inches): 11.00 Weight (Pounds): 300 HEENT: anicteric Respiratory/Chest: no respiratory distress Cardiovascular: regular rhythm Abdomen: no organomegaly Microbiology Date/Time Source Procedure Growth Status 06/05/17 11:35 Sputum Gram Stain - Final Resulted 06/05/17 11:35 Sputum Sputum Culture - Preliminary NORMAL UPPER RESPIRATORY TAMI AT 24 ... Resulted Laboratory Tests Test 06/07/17 05:50 White Blood Count 15.9 K/UL (4.8-10.8) H Red Blood Count 5.03 M/UL (4.70-6.10) Hemoglobin 14.7 G/DL (14.2-18.0) Hematocrit 46.7 % (42.0-52.0) Mean Corpuscular Volume 93 FL (80-99) Mean Corpuscular Hemoglobin 29.3 PG (27.0-31.0) Mean Corpuscular Hemoglobin Concent 31.6 G/DL (32.0-36.0) L Red Cell Distribution Width 13.6 % (11.6-14.8) Platelet Count 291 K/UL (150-450) Mean Platelet Volume 7.4 FL (6.5-10.1) Neutrophils (%) (Auto) % (45.0-75.0) Lymphocytes (%) (Auto) % (20.0-45.0) Monocytes (%) (Auto) % (1.0-10.0) Eosinophils (%) (Auto) % (0.0-3.0) Basophils (%) (Auto) % (0.0-2.0) Differential Total Cells Counted 100 Neutrophils % (Manual) 89 % (45-75) H Lymphocytes % (Manual) 8 % (20-45) L Monocytes % (Manual) 3 % (1-10) Eosinophils % (Manual) 0 % (0-3) Basophils % (Manual) 0 % (0-2) Band Neutrophils 0 % (0-8) Platelet Estimate Adequate Platelet Morphology Normal Red Blood Cell Morphology Hypochromasia 1+ Sodium Level 135 MMOL/L (136-145) L Potassium Level 3.2 MMOL/L (3.5-5.1) L Chloride Level 83 MMOL/L (98-107) L Carbon Dioxide Level 40 MMOL/L (21-32) H Anion Gap 13 mmol/L (5-15) Blood Urea Nitrogen 50 mg/dL (7-18) H Creatinine 1.9 MG/DL (0.55-1.30) H Estimat Glomerular Filtration Rate 47.9 mL/min (>60) Glucose Level 276 MG/DL (74-106) #H Calcium Level 10.2 MG/DL (8.5-10.1) H Total Bilirubin 0.3 MG/DL (0.2-1.0) Aspartate Amino Transf (AST/SGOT) 17 U/L (15-37) Alanine Aminotransferase (ALT/SGPT) 13 U/L (12-78) Alkaline Phosphatase 94 U/L (46-116) Pro-B-Type Natriuretic Peptide 230 pg/mL (0-125) H Total Protein 8.4 G/DL (6.4-8.2) H Albumin 4.1 G/DL (3.4-5.0) Globulin 4.3 g/dL Albumin/Globulin Ratio 1.0 (1.0-2.7) Current Medications Medications (Trade) Dose Ordered Sig/Kayla Route PRN Reason Start Time Stop Time Status Last Admin Dose Admin Albuterol/ Ipratropium (Albuterol/ Ipratropium) 3 ml EVERY 4 HOURS PRN HHN dyspnea 06/03/17 18:30 06/08/17 18:29 06/06/17 19:10 Aripiprazole (Abilify) 20 mg DAILY ORAL 06/04/17 09:00 07/04/17 08:59 Azithromycin 250 mg/Dextrose 275 ml @ 275 mls/hr Q24H IV 06/05/17 17:00 06/11/17 17:59 06/06/17 17:36 Dextrose (Dextrose 50%) STAT PRN IV Hypoglycemia 06/03/17 18:30 07/03/17 18:29 Duloxetine HCl (Cymbalta) 60 mg DAILY ORAL 06/04/17 09:00 07/04/17 08:59 Furosemide 100 mg/ Dextrose 100 ml @ 22 mls/hr Q4H33M IV 06/06/17 05:00 07/06/17 04:59 06/07/17 08:30 Heparin Sodium (Porcine) (Heparin 5000 units/ml) 5,000 units Q12H SUBQ 06/06/17 06:00 07/06/17 05:59 06/07/17 06:43 Lorazepam (Ativan 2mg/ml 1ml) 0.5 mg Q4H PRN IV For Anxiety 06/03/17 18:30 06/10/17 18:29 Metolazone (Zaroxolyn) 5 mg DAILY ORAL 06/05/17 15:30 07/05/17 15:29 06/05/17 17:24 Morphine Sulfate (Morphine Sulfate) 2 mg EVERY 4 HOURS PRN IVP severe pain 7-10 06/03/17 18:30 06/10/17 18:29 06/07/17 08:25 Nitroglycerin (Ntg) 0.4 mg Q5M X 3 DOSES PRN SL Prn Chest Pain 06/03/17 18:30 07/03/17 18:29 Ondansetron HCl (Zofran) 4 mg Q6H PRN IVP Nausea & Vomiting 06/03/17 18:30 07/03/17 18:29 Piperacillin Sod/ Tazobactam Sod 3.375 gm/Sodium Chloride 110 ml @ 27.5 mls/hr Q8H IVPB 06/03/17 21:00 06/10/17 23:59 06/07/17 06:37 Promethazine HCl/ Codeine (Phenergan with Codeine) 5 ml EVERY 6 HOURS PRN ORAL cough 06/03/17 18:30 07/03/17 18:29 06/06/17 03:06 Temazepam (Restoril) 15 mg HSPRN PRN ORAL Insomnia 06/03/17 18:30 06/10/17 18:29 06/04/17 01:27 Theophylline (Marco Antonio-Dur) 100 mg EVERY 12 HOURS ORAL 06/03/17 21:00 07/03/17 20:59 06/06/17 21:22 JUANA CORBIN M.D. Jun 07, 2017 11:13
[2017-06-07 11:48] VITALS: BP 101/58
--- NOTE | 2017-06-07 12:25 | Diagnostic Imaging Report ---
Indication: Dyspnea Technique: XRAY Chest 1v Comparison: 06/03/2018 Findings: Patient again noted to be status post median sternotomy. Multiple surgical clips noted overlying the left hemithorax. There is white out of the left hemithorax with shift of the mediastinal structures the left. These findings may be related to prior left pneumonectomy. There is persistent patchy right lower lung opacity and small right pleural effusion. These findings are decreased compared to the prior exam. There is no pneumothorax. No acute osseous abnormality seen Impression: Persistent right lower lung patchy opacities and small right pleural effusion. Findings are slightly decreased compared to exam 4 days prior.
[2017-06-07] MEDS: Albuterol/Ipratropium 3ml neb HHN PRN ×3 (13:21→23:52)
--- NOTE | 2017-06-07 13:21 | Consultation ---
History of Present Illness General Date patient seen: Jun 06, 2017 Chief Complaint: Upper Respiratory Illness Present Illness HPI 42-year-old male with mmp depression, who came to the hospital with chief complaint of cough and shortness of breath, admitted with impression of chronic obstructive pulmonary disease exacerbation/pneumonia. the pt is depressed anxious and has been noncompliant with meds. the pt is irritable and stated that he would not take any psych meds Allergies: Coded Allergies: No Known Allergies (Unverified , 09/09/14) Medication History Scheduled Furosemide* (Lasix*), 80 MG ORAL DAILY, (Reported) Hydrocodone Bit/Acetaminophen 10-325* (Hydrocodon-Acetaminophn 10-325*), TID, ( Reported) Zolpidem Tartrate* (Zolpidem Tartrate*), 10 MG QHS, (Reported) Scheduled PRN Albuterol Sulfate* (Proair Hfa*), 2 PUFFS INH Q6H PRN for Bronchospasm, ( Reported) Albuterol Sulfate* (Albuterol Sulfate Hhn*), 3 ML INH Q6H PRN for Shortness of Breath, (Reported) Miscellaneous Medications Naproxen* (Naproxen*), (Reported) Potassium Chloride* (K-Dur*), (Reported) Discontinued Medications Albuterol Sulfate* (Proair Hfa*), Unknown Dose INH Q6H, (Reported) Discontinued Reason: Prescription changed Aripiprazole* (Abilify*), 20 MG ORAL DAILY, (Reported) Discontinued Reason: Pt stopped taking med Clarithromycin (Clarithromycin), 500 MG ORAL TWICE A DAY, (Reported) Discontinued Reason: Pt stopped taking med Clindamycin Hcl* (Clindamycin Hcl*), 450 MG ORAL TID Discontinued Reason: Pt stopped taking med Duloxetine Hcl* (Cymbalta*), 60 MG ORAL DAILY, (Reported) Discontinued Reason: Pt stopped taking med Esomeprazole Magnesium (Nexium), 40 MG ORAL DAILY, (Reported) Discontinued Reason: Pt stopped taking med Fluticasone Propionate (Fluticasone Propionate), 1 SPRAY NASAL DAILY, (Reported) Discontinued Reason: Pt stopped taking med Fluticasone/Salmeterol (Advair 100-50 Diskus), 1 PUFF INH BID, (Reported) Discontinued Reason: Pt stopped taking med Formoterol Fumarate (Perforomist), 20 MCG IH Q6HR PRN for Bronchospasm, ( Reported) Discontinued Reason: Pt stopped taking med Potassium Gluconate (Potassium), Unknown Dose PO, (Reported) Discontinued Reason: Pt stopped taking med Patient History History Provided By: Patient, Medical Record, PMD Healthcare decision maker Resuscitation status Full Code Advanced Directive on File Past Medical/Surgical History Past Medical/Surgical History: (1) Preseptal cellulitis of left eye (2) Preseptal cellulitis of left eye (3) Sepsis (4) CHF (congestive heart failure) (5) COPD exacerbation (6) Pleural effusion Review of Systems Psychiatric: Reports: prior hx, anxiety, depressed feelings, emotional problems Physical Exam General Appearance: no apparent distress, alert, agitated Neurologic: alert, oriented x 3, depressed affect Last 24 Hour Vital Signs Date Time Temp Pulse Resp B/P (MAP) Pulse Ox O2 Delivery O2 Flow Rate FiO2 06/07/17 11:48 97.0 75 19 101/58 99 Nasal Cannula 4.0 06/07/17 08:55 97.0 06/07/17 08:08 Nasal Cannula 3.0 32 06/07/17 08:08 89 20 Nasal Cannula 3.0 32 06/07/17 08:08 99 Nasal Cannula 3.0 32 06/07/17 08:00 97.2 119 22 135/40 96 Nasal Cannula 4.0 06/07/17 08:00 89 06/07/17 04:00 97.0 73 20 99/56 98 06/07/17 04:00 73 06/07/17 00:00 97.0 72 18 110/64 100 06/07/17 00:00 75 06/06/17 20:00 97.7 83 18 100/61 100 06/06/17 20:00 91 06/06/17 19:20 108 20 99 Nasal Cannula 3.0 32 06/06/17 19:10 118 22 Nasal Cannula 3.0 32 06/06/17 19:10 99 Nasal Cannula 3.0 32 06/06/17 19:10 117 22 99 Nasal Cannula 3.0 32 06/06/17 19:10 Nasal Cannula 3.0 32 06/06/17 16:00 73 06/06/17 16:00 97.1 80 18 110/70 100 Nasal Cannula 3.0 Intake and Output 06/06/17 06/07/17 19:00 07:00 Intake Total 352 ml 22 ml Output Total 1600 ml 8000 ml Balance -1248 ml -7978 ml Intake Oral 352 ml IV Total 22 ml Output Urine Total 1600 ml 8000 ml Laboratory Tests Test 06/07/17 05:50 White Blood Count 15.9 K/UL (4.8-10.8) H Red Blood Count 5.03 M/UL (4.70-6.10) Hemoglobin 14.7 G/DL (14.2-18.0) Hematocrit 46.7 % (42.0-52.0) Mean Corpuscular Volume 93 FL (80-99) Mean Corpuscular Hemoglobin 29.3 PG (27.0-31.0) Mean Corpuscular Hemoglobin Concent 31.6 G/DL (32.0-36.0) L Red Cell Distribution Width 13.6 % (11.6-14.8) Platelet Count 291 K/UL (150-450) Mean Platelet Volume 7.4 FL (6.5-10.1) Neutrophils (%) (Auto) % (45.0-75.0) Lymphocytes (%) (Auto) % (20.0-45.0) Monocytes (%) (Auto) % (1.0-10.0) Eosinophils (%) (Auto) % (0.0-3.0) Basophils (%) (Auto) % (0.0-2.0) Differential Total Cells Counted 100 Neutrophils % (Manual) 89 % (45-75) H Lymphocytes % (Manual) 8 % (20-45) L Monocytes % (Manual) 3 % (1-10) Eosinophils % (Manual) 0 % (0-3) Basophils % (Manual) 0 % (0-2) Band Neutrophils 0 % (0-8) Platelet Estimate Adequate Platelet Morphology Normal Red Blood Cell Morphology Hypochromasia 1+ Sodium Level 135 MMOL/L (136-145) L Potassium Level 3.2 MMOL/L (3.5-5.1) L Chloride Level 83 MMOL/L (98-107) L Carbon Dioxide Level 40 MMOL/L (21-32) H Anion Gap 13 mmol/L (5-15) Blood Urea Nitrogen 50 mg/dL (7-18) H Creatinine 1.9 MG/DL (0.55-1.30) H Estimat Glomerular Filtration Rate 47.9 mL/min (>60) Glucose Level 276 MG/DL (74-106) #H Calcium Level 10.2 MG/DL (8.5-10.1) H Total Bilirubin 0.3 MG/DL (0.2-1.0) Aspartate Amino Transf (AST/SGOT) 17 U/L (15-37) Alanine Aminotransferase (ALT/SGPT) 13 U/L (12-78) Alkaline Phosphatase 94 U/L (46-116) Pro-B-Type Natriuretic Peptide 230 pg/mL (0-125) H Total Protein 8.4 G/DL (6.4-8.2) H Albumin 4.1 G/DL (3.4-5.0) Globulin 4.3 g/dL Albumin/Globulin Ratio 1.0 (1.0-2.7) Height (Feet): 5 Height (Inches): 11.00 Weight (Pounds): 300 Medications Current Medications Medications (Trade) Dose Ordered Sig/Kayla Route PRN Reason Start Time Stop Time Status Last Admin Dose Admin Albuterol/ Ipratropium (Albuterol/ Ipratropium) 3 ml EVERY 4 HOURS PRN HHN dyspnea 06/03/17 18:30 06/08/17 18:29 06/06/17 19:10 Aripiprazole (Abilify) 20 mg DAILY ORAL 06/04/17 09:00 07/04/17 08:59 Azithromycin 250 mg/Dextrose 275 ml @ 275 mls/hr Q24H IV 06/05/17 17:00 06/11/17 17:59 06/06/17 17:36 Dextrose (Dextrose 50%) STAT PRN IV Hypoglycemia 06/03/17 18:30 07/03/17 18:29 Duloxetine HCl (Cymbalta) 60 mg DAILY ORAL 06/04/17 09:00 07/04/17 08:59 Furosemide (Lasix) 80 mg TID IV 06/07/17 13:00 07/07/17 12:59 Heparin Sodium (Porcine) (Heparin 5000 units/ml) 5,000 units Q12H SUBQ 06/06/17 06:00 07/06/17 05:59 06/07/17 06:43 Lorazepam (Ativan 2mg/ml 1ml) 0.5 mg Q4H PRN IV For Anxiety 06/03/17 18:30 06/10/17 18:29 Metolazone (Zaroxolyn) 5 mg DAILY ORAL 06/05/17 15:30 07/05/17 15:29 06/05/17 17:24 Morphine Sulfate (Morphine Sulfate) 2 mg EVERY 4 HOURS PRN IVP severe pain 7-10 06/03/17 18:30 06/10/17 18:29 06/07/17 08:25 Nitroglycerin (Ntg) 0.4 mg Q5M X 3 DOSES PRN SL Prn Chest Pain 06/03/17 18:30 07/03/17 18:29 Ondansetron HCl (Zofran) 4 mg Q6H PRN IVP Nausea & Vomiting 06/03/17 18:30 07/03/17 18:29 Promethazine HCl/ Codeine (Phenergan with Codeine) 5 ml EVERY 6 HOURS PRN ORAL cough 06/03/17 18:30 07/03/17 18:29 06/06/17 03:06 Temazepam (Restoril) 15 mg HSPRN PRN ORAL Insomnia 06/03/17 18:30 06/10/17 18:29 06/04/17 01:27 Theophylline (Marco Antonio-Dur) 100 mg EVERY 12 HOURS ORAL 06/03/17 21:00 07/03/17 20:59 06/06/17 21:22 Assessment/Plan Status: stable Assessment/Plan mdd mmp anxiety -cont current meds -add Deshaun Tapia IV, M.D. Jun 07, 2017 13:21
[2017-06-07] MEDS ORDERED: LORazepam Inj 2mg/ml 1ml IV PRN (14:30)
--- NOTE | 2017-06-07 14:47 | Diagnostic Imaging Report ---
Indication: Flank pain Technique: The plantar grayscale and color Doppler imaging of the kidneys and bladder Comparison: None Findings: Right kidney measures 11 cm in length. Left kidney measures 10.7 cm in length. Both kidneys demonstrate normal parenchymal echogenicity and thickness. No hydronephrosis or sonographically appreciable renal stones are seen. Bladder is unremarkable in appearance. Ureteral jets noted. IMPRESSION: Unremarkable renal sonogram. No evidence of hydronephrosis or sonographically appreciable renal stones as questioned clinically.
[2017-06-07 16:00] VITALS: BP 125/70
[2017-06-07] MEDS: Azithromycin 250 MG in D5W 275 ML IV SCH (16:01)
--- NOTE | 2017-06-07 16:17 | Consultation ---
Consult Note Consult Note asked to evaluate for high creatinine and electrolyte imbalance Cr 1.9 up from 1.2 Na 135 Bun 50 K 3.2 Assessment/Plan Acute renal failure COPD / Pneumonia / Leukocytosis h/o Testicular Ca 2002 s/p Lobectomy lung CHF Pleural effusion Psych disease Left ventricular ejection fraction estimated to be 60-65% to extend visualized. No evidence of left ventricular hypertrophy. Unremarkable renal sonogram. No evidence of hydronephrosis or sonographically appreciable renal stones as questioned clinically. Persistent right lower lung patchy opacities and small right pleural effusion. Findings are slightly decreased compared to exam 4 days prior. Plan: Saline bollous urine studies avoid Nepgrotoxics monitor renal parameters NERY TODD Jun 07, 2017 16:17
[2017-06-07] MEDS ORDERED: NaCl 3% 500ml 250 ML IV ONE (17:30)
--- NOTE | 2017-06-07 17:39 | Cardiology Progress Note ---
Assessment/Plan Assessment/Plan asthma with exacerbation left sided pleural effusion ? chronicity s/p lung resection fo r testicular cancer obesity uri? (influenza seem ruled out) echo noted lv fucntion normal poor qulity echo in on hhn on abx on steroid telel noted i think lugn issue relaed to asthma edema related to right heart issue his edema has decreased sig Subjective Cardiovascular: Reports: lightheadedness, Denies: chest pain Respiratory: Denies: shortness of breath Gastrointestinal/Abdominal: Denies: abdomen distended Genitourinary: Denies: burning Subjective sig edema Objective Last 24 Hour Vital Signs Date Time Temp Pulse Resp B/P (MAP) Pulse Ox O2 Delivery O2 Flow Rate FiO2 06/07/17 16:31 97.0 06/07/17 16:00 97.6 66 19 125/70 98 Nasal Cannula 4.0 06/07/17 13:32 74 20 99 Nasal Cannula 4.0 36 06/07/17 13:21 73 20 99 Nasal Cannula 3.0 32 06/07/17 11:48 97.0 75 19 101/58 99 Nasal Cannula 4.0 06/07/17 08:08 Nasal Cannula 3.0 32 06/07/17 08:08 89 20 Nasal Cannula 3.0 32 06/07/17 08:08 99 Nasal Cannula 3.0 32 06/07/17 08:00 97.2 119 22 135/40 96 Nasal Cannula 4.0 06/07/17 08:00 89 06/07/17 04:00 97.0 73 20 99/56 98 06/07/17 04:00 73 06/07/17 00:00 97.0 72 18 110/64 100 06/07/17 00:00 75 06/06/17 20:00 97.7 83 18 100/61 100 06/06/17 20:00 91 06/06/17 19:20 108 20 99 Nasal Cannula 3.0 32 06/06/17 19:10 118 22 Nasal Cannula 3.0 32 06/06/17 19:10 99 Nasal Cannula 3.0 32 06/06/17 19:10 117 22 99 Nasal Cannula 3.0 32 06/06/17 19:10 Nasal Cannula 3.0 32 General Appearance: alert, other - lying in bed at 10degree ho elevation Neck: supple Cardiovascular: normal rate Respiratory/Chest: decreased breath sounds Abdomen: non tender, soft Extremities: trace edema Intake and Output 06/06/17 06/07/17 19:00 07:00 Intake Total 352 ml 22 ml Output Total 1600 ml 8000 ml Balance -1248 ml -7978 ml Intake Oral 352 ml IV Total 22 ml Output Urine Total 1600 ml 8000 ml Laboratory Tests Test 06/07/17 05:50 White Blood Count 15.9 K/UL (4.8-10.8) H Red Blood Count 5.03 M/UL (4.70-6.10) Hemoglobin 14.7 G/DL (14.2-18.0) Hematocrit 46.7 % (42.0-52.0) Mean Corpuscular Volume 93 FL (80-99) Mean Corpuscular Hemoglobin 29.3 PG (27.0-31.0) Mean Corpuscular Hemoglobin Concent 31.6 G/DL (32.0-36.0) L Red Cell Distribution Width 13.6 % (11.6-14.8) Platelet Count 291 K/UL (150-450) Mean Platelet Volume 7.4 FL (6.5-10.1) Neutrophils (%) (Auto) % (45.0-75.0) Lymphocytes (%) (Auto) % (20.0-45.0) Monocytes (%) (Auto) % (1.0-10.0) Eosinophils (%) (Auto) % (0.0-3.0) Basophils (%) (Auto) % (0.0-2.0) Differential Total Cells Counted 100 Neutrophils % (Manual) 89 % (45-75) H Lymphocytes % (Manual) 8 % (20-45) L Monocytes % (Manual) 3 % (1-10) Eosinophils % (Manual) 0 % (0-3) Basophils % (Manual) 0 % (0-2) Band Neutrophils 0 % (0-8) Platelet Estimate Adequate Platelet Morphology Normal Red Blood Cell Morphology Hypochromasia 1+ Sodium Level 135 MMOL/L (136-145) L Potassium Level 3.2 MMOL/L (3.5-5.1) L Chloride Level 83 MMOL/L (98-107) L Carbon Dioxide Level 40 MMOL/L (21-32) H Anion Gap 13 mmol/L (5-15) Blood Urea Nitrogen 50 mg/dL (7-18) H Creatinine 1.9 MG/DL (0.55-1.30) H Estimat Glomerular Filtration Rate 47.9 mL/min (>60) Glucose Level 276 MG/DL (74-106) #H Calcium Level 10.2 MG/DL (8.5-10.1) H Total Bilirubin 0.3 MG/DL (0.2-1.0) Aspartate Amino Transf (AST/SGOT) 17 U/L (15-37) Alanine Aminotransferase (ALT/SGPT) 13 U/L (12-78) Alkaline Phosphatase 94 U/L (46-116) C-Reactive Protein, Quantitative 1.1 mg/dL (0.00-0.90) H Pro-B-Type Natriuretic Peptide 230 pg/mL (0-125) H Total Protein 8.4 G/DL (6.4-8.2) H Albumin 4.1 G/DL (3.4-5.0) Globulin 4.3 g/dL Albumin/Globulin Ratio 1.0 (1.0-2.7) Microbiology Date/Time Source Procedure Growth Status 06/05/17 11:35 Sputum Gram Stain - Final Resulted 06/05/17 11:35 Sputum Sputum Culture - Preliminary NORMAL UPPER RESPIRATORY A[facility]RIE AT 24 ... Resulted CELINA RED Jun 07, 2017 17:39
--- NOTE | 2017-06-07 19:16 | Pulmonology Progress Note ---
Assessment/Plan Problems: (1) Pleural effusion (2) CHF (congestive heart failure) (3) COPD exacerbation (4) S/P lobectomy of lung Assessment/Plan bun/creaine rising US doppler of legs renal US cxr bnp in am check labs in am keep in teli check echo Nephrology to see. Urine electrolytes Subjective ROS Limited/Unobtainable: No Allergies: Coded Allergies: No Known Allergies (Unverified , 09/09/14) Objective Last 24 Hour Vital Signs Date Time Temp Pulse Resp B/P (MAP) Pulse Ox O2 Delivery O2 Flow Rate FiO2 06/07/17 18:46 88 19 100 Nasal Cannula 4.0 36 06/07/17 18:41 88 19 100 Nasal Cannula 4.0 36 06/07/17 18:41 36 06/07/17 18:40 100 Nasal Cannula 4.0 36 06/07/17 18:40 Nasal Cannula 4.0 36 06/07/17 18:37 88 19 Nasal Cannula 4.0 36 06/07/17 16:31 97.0 06/07/17 16:00 103 06/07/17 16:00 97.6 66 19 125/70 98 Nasal Cannula 4.0 06/07/17 13:32 74 20 99 Nasal Cannula 4.0 36 06/07/17 13:21 73 20 99 Nasal Cannula 3.0 32 06/07/17 12:00 65 06/07/17 11:48 97.0 75 19 101/58 99 Nasal Cannula 4.0 06/07/17 08:08 Nasal Cannula 3.0 32 06/07/17 08:08 89 20 Nasal Cannula 3.0 32 06/07/17 08:08 99 Nasal Cannula 3.0 32 06/07/17 08:00 97.2 119 22 135/40 96 Nasal Cannula 4.0 06/07/17 08:00 89 06/07/17 04:00 97.0 73 20 99/56 98 06/07/17 04:00 73 06/07/17 00:00 97.0 72 18 110/64 100 06/07/17 00:00 75 06/06/17 20:00 97.7 83 18 100/61 100 06/06/17 20:00 91 06/06/17 19:20 108 20 99 Nasal Cannula 3.0 32 Intake and Output 06/06/17 06/07/17 19:00 07:00 Intake Total 352 ml 22 ml Output Total 1600 ml 8000 ml Balance -1248 ml -7978 ml Intake Oral 352 ml IV Total 22 ml Output Urine Total 1600 ml 8000 ml Objective General Appearance: no acute distress, other - A/A/O x 3 morbidly obese AA male in NAD HEENT: normocephalic, atraumatic, anicteric, mucous membranes moist Respiratory/Chest: lungs clear -with moderate air exchange no respiratory distress, no accessory muscle use Cardiovascular: normal rate Abdomen: normal bowel sounds, soft, non tender , obese Extremities: pedal pulses normal, other - +1 edema BLE Neurologic/Psychiatric: no motor/sensory deficits, alert, oriented x 3, responsive Musculoskeletal: normal muscle bulk Microbiology Date/Time Source Procedure Growth Status 06/05/17 11:35 Sputum Gram Stain - Final Resulted 06/05/17 11:35 Sputum Sputum Culture - Preliminary NORMAL UPPER RESPIRATORY [facility]E AT 24 ... Resulted Laboratory Tests 06/07/17 05:50: White Blood Count 15.9H, Red Blood Count 5.03, Hemoglobin 14.7, Hematocrit 46.7 , Mean Corpuscular Volume 93, Mean Corpuscular Hemoglobin 29.3, Mean Corpuscular Hemoglobin Concent 31.6L, Red Cell Distribution Width 13.6, Platelet Count 291, Mean Platelet Volume 7.4, Neutrophils (%) (Auto) , Lymphocytes (%) (Auto) , Monocytes (%) (Auto) , Eosinophils (%) (Auto) , Basophils (%) (Auto) , Differential Total Cells Counted 100, Neutrophils % ( Manual) 89H, Lymphocytes % (Manual) 8L, Monocytes % (Manual) 3, Eosinophils % ( Manual) 0, Basophils % (Manual) 0, Band Neutrophils 0, Platelet Estimate Adequate, Platelet Morphology Normal, Red Blood Cell Morphology , Hypochromasia 1+, Sodium Level 135L, Potassium Level 3.2L, Chloride Level 83L, Carbon Dioxide Level 40H, Anion Gap 13, Blood Urea Nitrogen 50H, Creatinine 1.9H, Estimat Glomerular Filtration Rate 47.9, Glucose Level 276#H, Calcium Level 10.2H, Total Bilirubin 0.3, Aspartate Amino Transf (AST/SGOT) 17, Alanine Aminotransferase (ALT/SGPT) 13, Alkaline Phosphatase 94, C-Reactive Protein, Quantitative 1.1H, Pro-B-Type Natriuretic Peptide 230H, Total Protein 8.4H, Albumin 4.1, Globulin 4.3, Albumin/Globulin Ratio 1.0 Current Medications Medications (Trade) Dose Ordered Sig/Kayla Route PRN Reason Start Time Stop Time Status Last Admin Dose Admin Albuterol/ Ipratropium (Albuterol/ Ipratropium) 3 ml EVERY 4 HOURS PRN HHN dyspnea 06/03/17 18:30 06/08/17 18:29 06/07/17 18:42 Aripiprazole (Abilify) 20 mg DAILY ORAL 06/04/17 09:00 07/04/17 08:59 Azithromycin 250 mg/Dextrose 275 ml @ 275 mls/hr Q24H IV 06/05/17 17:00 06/11/17 17:59 06/07/17 16:01 Dextrose (Dextrose 50%) STAT PRN IV Hypoglycemia 06/03/17 18:30 07/03/17 18:29 Duloxetine HCl (Cymbalta) 60 mg DAILY ORAL 06/04/17 09:00 07/04/17 08:59 Heparin Sodium (Porcine) (Heparin 5000 units/ml) 5,000 units Q12H SUBQ 06/06/17 06:00 07/06/17 05:59 06/07/17 17:21 Lorazepam (Ativan 2mg/ml 1ml) 2 mg Q4H PRN IV For Anxiety 06/07/17 14:30 06/14/17 14:29 Morphine Sulfate (Morphine Sulfate) 2 mg EVERY 4 HOURS PRN IVP severe pain 7-10 06/03/17 18:30 06/10/17 18:29 06/07/17 16:01 Nitroglycerin (Ntg) 0.4 mg Q5M X 3 DOSES PRN SL Prn Chest Pain 06/03/17 18:30 07/03/17 18:29 Ondansetron HCl (Zofran) 4 mg Q6H PRN IVP Nausea & Vomiting 06/03/17 18:30 07/03/17 18:29 06/07/17 18:55 Pantoprazole (Protonix) 40 mg EVERY 12 HOURS ORAL 06/07/17 21:00 07/07/17 20:59 Promethazine HCl/ Codeine (Phenergan with Codeine) 5 ml EVERY 6 HOURS PRN ORAL cough 06/03/17 18:30 07/03/17 18:29 06/06/17 03:06 Sodium Chloride 250 ml @ 30 mls/hr ONCE ONCE IV 06/07/17 17:30 06/08/17 01:49 06/07/17 17:23 Tamsulosin HCl (Flomax) 0.4 mg BEDTIME ORAL 06/07/17 21:00 07/07/17 20:59 Temazepam (Restoril) 15 mg HSPRN PRN ORAL Insomnia 06/03/17 18:30 06/10/17 18:29 06/04/17 01:27 Theophylline (Marco Antonio-Dur) 200 mg EVERY 12 HOURS ORAL 06/07/17 21:00 07/07/17 20:59 GENEVA HOOPER Jun 07, 2017 19:16
[2017-06-07] MEDS ORDERED: Tubing IV Secondary IV ONE (19:51)
[2017-06-07] MEDS ORDERED: NS 275ml ONE (19:51)
[2017-06-07 20:00] VITALS: BP 109/70
[2017-06-07] MEDS ORDERED: Tamsulosin 0.4mg cap ORAL SCH (21:00)
[2017-06-08] VITALS: BP 103/70
[2017-06-08] MEDS: Morphine Sulfate 2mg/ml Inj IVP PRN ×5 (01:56→23:42)
[2017-06-08] MEDS: Albuterol/Ipratropium 3ml neb HHN PRN (03:59)
[2017-06-08 04:00] VITALS: BP 97/56
[2017-06-08 04:59] LABS: EOSINOPHILS % (AUTO) 0.2 % (0.0-3.0); HEMATOCRIT 48.6 % (42.0-52.0); HEMOGLOBIN 15.2 G/DL (14.2-18.0); LYMPHOCYTES % (AUTO) 13.1 % (20.0-45.0); MEAN CORPUSCULAR VOLUME 92 FL (80-99); MONOCYTES % (AUTO) 6.3 % (1.0-10.0); NEUTROPHILS % (AUTO) 79.4 % (45.0-75.0); PLATELET COUNT 291 K/UL (150-450); RED CELL DISTRIBUTION WIDTH 13.2 % (11.6-14.8); WHITE BLOOD COUNT 11.3 K/UL (4.8-10.8)
[2017-06-08 05:22] LABS: ALANINE AMINOTRANSFERASE 14 U/L (12-78); ALBUMIN 3.9 G/DL (3.4-5.0); ALBUMIN/GLOBULIN RATIO 0.9 (1.0-2.7); ALKALINE PHOSPHATASE 81 U/L (46-116); ANION GAP 8 mmol/L (5-15); ASPARTATE AMINO TRANSFERASE 15 U/L (15-37); BILIRUBIN,TOTAL 0.4 MG/DL (0.2-1.0); BLOOD UREA NITROGEN 45 mg/dL (7-18); CALCIUM 10.1 MG/DL (8.5-10.1); CHLORIDE 85 MMOL/L (98-107); CHOLESTEROL 229 MG/DL (< 200); CREATINE KINASE 180 U/L (26-308); CREATININE 1.7 MG/DL (0.55-1.30); GAMMA GLUTAMYL TRANSPEPTIDASE 51 U/L (5-85); HDL CHOLESTEROL 67 MG/DL (40-60); PHOSPHORUS 4.3 MG/DL (2.5-4.9); POTASSIUM 3.2 MMOL/L (3.5-5.1); SODIUM 136 MMOL/L (136-145); TRIGLYCERIDES 369 MG/DL (30-150)
[2017-06-08 05:24] LABS: CARBON DIOXIDE 43 MMOL/L (21-32)
[2017-06-08] MEDS: Heparin 5000 units/ml inj SUBQ SCH ×2 (06:00→17:51)
[2017-06-08] MEDS: Albuterol/Ipratropium 3ml neb HHN SCH ×5 (07:00→23:10)
--- NOTE | 2017-06-08 07:28 | Pulmonology Progress Note ---
Assessment/Plan Assessment/Plan ASSESSMENT Asthma/COPD exacerbation PNA Left pleural effusion CHF Acute renal failure morbid obesity hx of lung Ca, s/p lobectomy hx of testicular Ca PLAN OF CARE Tele s/p Lasix gtt Cardio follows ECHO with pEF 60-65% Edema likely due to R sided heart failure as per cardio O2 HHN prn Theophylline s/p steroids empiric abx ID follows sputum cx negative; blood cx negative, influenza screen negative Venous Duplex BLE negative HIV test negative Clinically improving nephro follows renal US negative monitor renal parameters, lytes, avoid nephrotoxics creat down to 1.7 s/p 3% NaCl , K replaced- as per nephro started on Diamox in hope to reset hypercapnia DVT GI prophylaxis transfer to [facility] floor case discussed and evaluated by supervising physician Subjective Allergies: Coded Allergies: No Known Allergies (Unverified , 09/09/14) Subjective denies chest pain, on O2 via NC pulse ox stable no signs of respiratory distress intermittent SOB Objective Last 24 Hour Vital Signs Date Time Temp Pulse Resp B/P (MAP) Pulse Ox O2 Delivery O2 Flow Rate FiO2 06/08/17 04:00 74 06/08/17 04:00 97.9 60 20 97/56 100 06/08/17 03:57 68 18 96 Nasal Cannula 4.0 36 06/08/17 03:57 36 06/08/17 00:00 80 06/08/17 00:00 97.0 72 18 103/70 96 06/07/17 23:59 85 18 98 Nasal Cannula 4.0 36 06/07/17 23:52 36 06/07/17 23:49 85 18 98 Nasal Cannula 4.0 36 06/07/17 20:00 97.0 72 18 109/70 97 06/07/17 20:00 80 06/07/17 18:46 88 19 100 Nasal Cannula 4.0 36 06/07/17 18:41 88 19 100 Nasal Cannula 4.0 36 06/07/17 18:41 36 06/07/17 18:40 100 Nasal Cannula 4.0 36 06/07/17 18:40 Nasal Cannula 4.0 36 06/07/17 18:37 88 19 Nasal Cannula 4.0 36 06/07/17 16:31 97.0 06/07/17 16:00 103 06/07/17 16:00 97.6 66 19 125/70 98 Nasal Cannula 4.0 1/19/18 13:32 74 20 99 Nasal Cannula 4.0 36 06/07/17 13:21 73 20 99 Nasal Cannula 3.0 32 06/07/17 12:00 65 06/07/17 11:48 97.0 75 19 101/58 99 Nasal Cannula 4.0 06/07/17 08:08 Nasal Cannula 3.0 32 06/07/17 08:08 89 20 Nasal Cannula 3.0 32 06/07/17 08:08 99 Nasal Cannula 3.0 32 06/07/17 08:00 97.2 119 22 135/40 96 Nasal Cannula 4.0 06/07/17 08:00 89 Intake and Output 06/07/17 06/08/17 18:59 06:59 Intake Total 1133 ml Output Total 900 ml 1500 ml Balance 233 ml -1500 ml Intake Oral 700 ml IV Total 433 ml Output Urine Total 900 ml 1500 ml General Appearance: no acute distress, other - A/A/O morbidly obese AA male HEENT: normocephalic, atraumatic, anicteric, other - O 2 via NC Respiratory/Chest: lungs clear, no respiratory distress Cardiovascular: normal rate, regular rhythm - SR on tele , edema - BLE Abdomen: normal bowel sounds, soft, non tender - obese Neurologic/Psychiatric: alert, normal mood/affect Musculoskeletal: normal muscle bulk Microbiology Date/Time Source Procedure Growth Status 06/05/17 11:35 Sputum Gram Stain - Final Resulted 06/05/17 11:35 Sputum Sputum Culture - Preliminary NORMAL UPPER RESPIRATORY [facility]E AT 24 ... Resulted Laboratory Tests 06/08/17 04:00: White Blood Count 11.3H, Red Blood Count 5.30, Hemoglobin 15.2, Hematocrit 48.6 , Mean Corpuscular Volume 92, Mean Corpuscular Hemoglobin 28.6, Mean Corpuscular Hemoglobin Concent 31.2L, Red Cell Distribution Width 13.2, Platelet Count 291, Mean Platelet Volume 7.7, Neutrophils (%) (Auto) 79.4H, Lymphocytes (%) (Auto) 13.1L, Monocytes (%) (Auto) 6.3, Eosinophils (%) (Auto) 0.2, Basophils (%) (Auto) 1.0, Sodium Level 136, Potassium Level 3.2L, Chloride Level 85L, Carbon Dioxide Level 43*H, Anion Gap 8, Blood Urea Nitrogen 45H, Creatinine 1.7H, Estimat Glomerular Filtration Rate 54.4, Glucose Level 154#H, Hemoglobin A1c 7.2H, Uric Acid 11.8H, Calcium Level 10.1, Phosphorus Level 4.3, Magnesium Level 2.8H, Total Bilirubin 0.4, Gamma Glutamyl Transpeptidase 51, Aspartate Amino Transf (AST/SGOT) 15, Alanine Aminotransferase (ALT/SGPT) 14, Alkaline Phosphatase 81, Total Creatine Kinase 180, Troponin I 0.006, Pro-B- Type Natriuretic Peptide 115, Total Protein 8.2, Albumin 3.9, Globulin 4.3, Albumin/Globulin Ratio 0.9L, Triglycerides Level 369H, Cholesterol Level 229H, LDL Cholesterol 117H, HDL Cholesterol 67H, Cholesterol/HDL Ratio 3.4, Thyroid Stimulating Hormone (TSH) 2.365, Cortisol AM Sample [Pending] Current Medications Medications (Trade) Dose Ordered Sig/Kayla Route PRN Reason Start Time Stop Time Status Last Admin Dose Admin Albuterol/ Ipratropium (Albuterol/ Ipratropium) 3 ml EVERY 4 HOURS PRN HHN dyspnea 06/03/17 18:30 06/08/17 18:29 06/08/17 03:59 Albuterol/ Ipratropium (Albuterol/ Ipratropium) 3 ml Q4HRT HHN 06/08/17 07:00 06/13/17 06:59 Aripiprazole (Abilify) 20 mg DAILY ORAL 06/04/17 09:00 07/04/17 08:59 Azithromycin 250 mg/Dextrose 275 ml @ 275 mls/hr Q24H IV 06/05/17 17:00 06/11/17 17:59 06/07/17 16:01 Dextrose (Dextrose 50%) STAT PRN IV Hypoglycemia 06/03/17 18:30 07/03/17 18:29 Duloxetine HCl (Cymbalta) 60 mg DAILY ORAL 06/04/17 09:00 07/04/17 08:59 Heparin Sodium (Porcine) (Heparin 5000 units/ml) 5,000 units Q12H SUBQ 06/06/17 06:00 07/06/17 05:59 06/08/17 06:00 Lorazepam (Ativan 2mg/ml 1ml) 2 mg Q4H PRN IV For Anxiety 06/07/17 14:30 06/14/17 14:29 Morphine Sulfate (Morphine Sulfate) 2 mg EVERY 4 HOURS PRN IVP severe pain 7-10 06/03/17 18:30 06/10/17 18:29 06/08/17 01:56 Nitroglycerin (Ntg) 0.4 mg Q5M X 3 DOSES PRN SL Prn Chest Pain 06/03/17 18:30 07/03/17 18:29 Ondansetron HCl (Zofran) 4 mg Q6H PRN IVP Nausea & Vomiting 06/03/17 18:30 07/03/17 18:29 06/07/17 18:55 Pantoprazole (Protonix) 40 mg EVERY 12 HOURS ORAL 06/07/17 21:00 07/07/17 20:59 06/07/17 20:43 Promethazine HCl/ Codeine (Phenergan with Codeine) 5 ml EVERY 6 HOURS PRN ORAL cough 06/03/17 18:30 07/03/17 18:29 06/06/17 03:06 Tamsulosin HCl (Flomax) 0.4 mg BEDTIME ORAL 06/07/17 21:00 07/07/17 20:59 06/07/17 20:43 Temazepam (Restoril) 15 mg HSPRN PRN ORAL Insomnia 06/03/17 18:30 06/10/17 18:29 06/04/17 01:27 Theophylline (Marco Antonio-Dur) 200 mg EVERY 12 HOURS ORAL 06/07/17 21:00 07/07/17 20:59 06/07/17 20:43 [facility]Wood[facility] CenterLissa Pires NP Jun 08, 2017 07:28
[2017-06-08 08:00] VITALS: BP 97/47
[2017-06-08] MEDS: Theophylline ER 100mg ORAL SCH ×2 (08:31→21:37)
[2017-06-08] MEDS: ARIPiprazole 10mg tab ORAL SCH (08:31)
[2017-06-08] MEDS: DULoxetine 30mg cap ORAL SCH (08:31)
--- NOTE | 2017-06-08 10:03 | Infectious Diseases Prog Note ---
Assessment/Plan Assessment/Plan ASSESSMENT: The patient is a 42-year-old male with Pneumonia/chronic obstructive pulmonary disease exacerbation. Scx: Nl tami -CXR 06/07: Persistent right lower lung patchy opacities and small right pleural effusion. Findings are slightly decreased compared to exam 4 days prior. -f/u neg -Bcx NTD Afebrile leukocytosis ( SP steroids ) improving HIV: neg ISACC , improving COPD. Asthma. History of testicular cancer in 2002. History of lung cancer status post left lob/Pneumectomy PLAN: cont pt Zithromax d# 4 /5 -06/07 SP Zosyn # 3 Monitor CBC. Monitor BMP Monitor cultures (blood,) Subjective Allergies: Coded Allergies: No Known Allergies (Unverified , 09/09/14) Subjective afebrile leukocytosis improving Objective Vital Signs Last 24 Hour Vital Signs Date Time Temp Pulse Resp B/P (MAP) Pulse Ox O2 Delivery O2 Flow Rate FiO2 06/08/17 08:00 97.5 75 20 97/47 99 Nasal Cannula 4.0 06/08/17 07:30 100 Nasal Cannula 4.0 36 06/08/17 07:30 Nasal Cannula 06/08/17 07:30 Nasal Cannula 06/08/17 07:30 86 16 Nasal Cannula 4.0 36 06/08/17 07:30 Nasal Cannula 4.0 36 06/08/17 04:00 74 06/08/17 04:00 97.9 60 20 97/56 100 06/08/17 03:57 68 18 96 Nasal Cannula 4.0 36 06/08/17 03:57 36 06/08/17 00:00 80 06/08/17 00:00 97.0 72 18 103/70 96 06/07/17 23:59 85 18 98 Nasal Cannula 4.0 36 06/07/17 23:52 36 06/07/17 23:49 85 18 98 Nasal Cannula 4.0 36 06/07/17 20:00 97.0 72 18 109/70 97 06/07/17 20:00 80 06/07/17 18:46 88 19 100 Nasal Cannula 4.0 36 06/07/17 18:41 88 19 100 Nasal Cannula 4.0 36 06/07/17 18:41 36 06/07/17 18:40 100 Nasal Cannula 4.0 36 06/07/17 18:40 Nasal Cannula 4.0 36 06/07/17 18:37 88 19 Nasal Cannula 4.0 36 06/07/17 16:31 97.0 06/07/17 16:00 103 06/07/17 16:00 97.6 66 19 125/70 98 Nasal Cannula 4.0 06/07/17 13:32 74 20 99 Nasal Cannula 4.0 36 06/07/17 13:21 73 20 99 Nasal Cannula 3.0 32 06/07/17 12:00 65 06/07/17 11:48 97.0 75 19 101/58 99 Nasal Cannula 4.0 Height (Feet): 5 Height (Inches): 11.00 Weight (Pounds): 300 Objective HEENT: anicteric Respiratory/Chest: no respiratory distress Cardiovascular: regular rhythm Abdomen: no organomegaly Microbiology Date/Time Source Procedure Growth Status 06/05/17 11:35 Sputum Gram Stain - Final Complete 06/05/17 11:35 Sputum Sputum Culture - Final NORMAL UPPER RESPIRATORY TAMI AT 48 ... Complete Laboratory Tests Test 06/08/17 04:00 06/08/17 08:40 White Blood Count 11.3 K/UL (4.8-10.8) H Red Blood Count 5.30 M/UL (4.70-6.10) Hemoglobin 15.2 G/DL (14.2-18.0) Hematocrit 48.6 % (42.0-52.0) Mean Corpuscular Volume 92 FL (80-99) Mean Corpuscular Hemoglobin 28.6 PG (27.0-31.0) Mean Corpuscular Hemoglobin Concent 31.2 G/DL (32.0-36.0) L Red Cell Distribution Width 13.2 % (11.6-14.8) Platelet Count 291 K/UL (150-450) Mean Platelet Volume 7.7 FL (6.5-10.1) Neutrophils (%) (Auto) 79.4 % (45.0-75.0) H Lymphocytes (%) (Auto) 13.1 % (20.0-45.0) L Monocytes (%) (Auto) 6.3 % (1.0-10.0) Eosinophils (%) (Auto) 0.2 % (0.0-3.0) Basophils (%) (Auto) 1.0 % (0.0-2.0) Sodium Level 136 MMOL/L (136-145) Potassium Level 3.2 MMOL/L (3.5-5.1) L Chloride Level 85 MMOL/L (98-107) L Carbon Dioxide Level 43 MMOL/L (21-32) *H Anion Gap 8 mmol/L (5-15) Blood Urea Nitrogen 45 mg/dL (7-18) H Creatinine 1.7 MG/DL (0.55-1.30) H Estimat Glomerular Filtration Rate 54.4 mL/min (>60) Glucose Level 154 MG/DL (74-106) #H Hemoglobin A1c 7.2 % (4.3-6.0) H Uric Acid 11.8 MG/DL (2.6-7.2) H Calcium Level 10.1 MG/DL (8.5-10.1) Phosphorus Level 4.3 MG/DL (2.5-4.9) Magnesium Level 2.8 MG/DL (1.8-2.4) H Total Bilirubin 0.4 MG/DL (0.2-1.0) Gamma Glutamyl Transpeptidase 51 U/L (5-85) Aspartate Amino Transf (AST/SGOT) 15 U/L (15-37) Alanine Aminotransferase (ALT/SGPT) 14 U/L (12-78) Alkaline Phosphatase 81 U/L (46-116) Total Creatine Kinase 180 U/L (26-308) Troponin I 0.006 ng/mL (0.000-0.056) Pro-B-Type Natriuretic Peptide 115 pg/mL (0-125) Total Protein 8.2 G/DL (6.4-8.2) Albumin 3.9 G/DL (3.4-5.0) Globulin 4.3 g/dL Albumin/Globulin Ratio 0.9 (1.0-2.7) L Triglycerides Level 369 MG/DL (30-150) H Cholesterol Level 229 MG/DL (< 200) H LDL Cholesterol 117 mg/dL (<100) H HDL Cholesterol 67 MG/DL (40-60) H Cholesterol/HDL Ratio 3.4 (3.3-4.4) Thyroid Stimulating Hormone (TSH) 2.365 uiU/mL (0.358-3.740) Cortisol AM Sample Pending Current Medications Medications (Trade) Dose Ordered Sig/Kayla Route PRN Reason Start Time Stop Time Status Last Admin Dose Admin Albuterol/ Ipratropium (Albuterol/ Ipratropium) 3 ml EVERY 4 HOURS PRN HHN dyspnea 06/03/17 18:30 06/08/17 18:29 06/08/17 03:59 Albuterol/ Ipratropium (Albuterol/ Ipratropium) 3 ml Q4HRT HHN 06/08/17 07:00 06/13/17 06:59 Allopurinol (Allopurinol) 300 mg DAILY ORAL 06/09/17 09:00 07/09/17 08:59 Allopurinol (Allopurinol) 300 mg ONCE ONCE ORAL 06/08/17 10:00 06/08/17 10:01 Aripiprazole (Abilify) 20 mg DAILY ORAL 06/04/17 09:00 07/04/17 08:59 Atorvastatin Calcium (Lipitor) 10 mg BEDTIME ORAL 06/08/17 21:00 07/08/17 20:59 Atorvastatin Calcium (Lipitor) 10 mg ONCE ONCE ORAL 06/08/17 10:00 06/08/17 10:01 Azithromycin 250 mg/Dextrose 275 ml @ 275 mls/hr Q24H IV 06/05/17 17:00 06/11/17 17:59 06/07/17 16:01 Dextrose (Dextrose 50%) STAT PRN IV Hypoglycemia 06/03/17 18:30 07/03/17 18:29 Duloxetine HCl (Cymbalta) 60 mg DAILY ORAL 06/04/17 09:00 07/04/17 08:59 Heparin Sodium (Porcine) (Heparin 5000 units/ml) 5,000 units Q12H SUBQ 06/06/17 06:00 07/06/17 05:59 06/08/17 06:00 Lorazepam (Ativan 2mg/ml 1ml) 2 mg Q4H PRN IV For Anxiety 06/07/17 14:30 06/14/17 14:29 Morphine Sulfate (Morphine Sulfate) 2 mg EVERY 4 HOURS PRN IVP severe pain 7-10 06/03/17 18:30 06/10/17 18:29 06/08/17 09:45 Nitroglycerin (Ntg) 0.4 mg Q5M X 3 DOSES PRN SL Prn Chest Pain 06/03/17 18:30 07/03/17 18:29 Ondansetron HCl (Zofran) 4 mg Q6H PRN IVP Nausea & Vomiting 06/03/17 18:30 07/03/17 18:29 06/08/17 09:49 Pantoprazole (Protonix) 40 mg EVERY 12 HOURS ORAL 06/07/17 21:00 07/07/17 20:59 06/08/17 08:30 Potassium Chloride (K-Dur) 40 meq ONCE ONCE ORAL 06/08/17 10:00 06/08/17 10:01 Promethazine HCl/ Codeine (Phenergan with Codeine) 5 ml EVERY 6 HOURS PRN ORAL cough 06/03/17 18:30 07/03/17 18:29 06/06/17 03:06 Tamsulosin HCl (Flomax) 0.4 mg BEDTIME ORAL 06/07/17 21:00 07/07/17 20:59 06/07/17 20:43 Temazepam (Restoril) 15 mg HSPRN PRN ORAL Insomnia 06/03/17 18:30 06/10/17 18:29 06/04/17 01:27 Theophylline (Marco Antonio-Dur) 200 mg EVERY 12 HOURS ORAL 06/07/17 21:00 07/07/17 20:59 06/07/17 20:43 Alix Maceod M.D. Jun 08, 2017 10:03
[2017-06-08 12:00] VITALS: BP 108/89
--- NOTE | 2017-06-08 12:09 | Nephrology Progress Note ---
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 No evidence of left ventricular hypertrophy. Unremarkable renal sonogram. No evidence of hydronephrosis or sonographically appreciable renal stones as questioned clinically. Persistent right lower lung patchy opacities and small right pleural effusion. Findings are slightly decreased compared to exam 4 days prior. Plan Plan: another 3% bollous urine studies avoid Nepgrotoxics monitor renal parameters add Januvia add diamox add Allopurinol Subjective ROS Limited/Unobtainable: No Constitutional: Reports: malaise Objective Objective Last 24 Hour Vital Signs Date Time Temp Pulse Resp B/P (MAP) Pulse Ox O2 Delivery O2 Flow Rate FiO2 06/08/17 11:33 80 18 98 Nasal Cannula 4.0 36 06/08/17 11:25 36 06/08/17 11:25 78 18 98 Nasal Cannula 4.0 36 06/08/17 10:15 97.5 06/08/17 08:00 97.5 75 20 97/47 99 Nasal Cannula 4.0 06/08/17 08:00 77 06/08/17 07:30 100 Nasal Cannula 4.0 36 06/08/17 07:30 Nasal Cannula 06/08/17 07:30 Nasal Cannula 06/08/17 07:30 86 16 Nasal Cannula 4.0 36 06/08/17 07:30 Nasal Cannula 4.0 36 06/08/17 04:00 74 06/08/17 04:00 97.9 60 20 97/56 100 06/08/17 03:57 68 18 96 Nasal Cannula 4.0 36 06/08/17 03:57 36 06/08/17 00:00 80 06/08/17 00:00 97.0 72 18 103/70 96 06/07/17 23:59 85 18 98 Nasal Cannula 4.0 36 06/07/17 23:52 36 06/07/17 23:49 85 18 98 Nasal Cannula 4.0 36 06/07/17 20:00 97.0 72 18 109/70 97 06/07/17 20:00 80 06/07/17 18:46 88 19 100 Nasal Cannula 4.0 36 06/07/17 18:41 88 19 100 Nasal Cannula 4.0 36 06/07/17 18:41 36 06/07/17 18:40 100 Nasal Cannula 4.0 36 06/07/17 18:40 Nasal Cannula 4.0 36 06/07/17 18:37 88 19 Nasal Cannula 4.0 36 06/07/17 16:00 103 06/07/17 16:00 97.6 66 19 125/70 98 Nasal Cannula 4.0 06/07/17 13:32 74 20 99 Nasal Cannula 4.0 36 06/07/17 13:21 73 20 99 Nasal Cannula 3.0 32 Intake and Output 06/07/17 06/08/17 19:00 07:00 Intake Total 1111 ml Output Total 900 ml 1500 ml Balance 211 ml -1500 ml Intake Oral 700 ml IV Total 411 ml Output Urine Total 900 ml 1500 ml Laboratory Tests 06/08/17 04:00: White Blood Count 11.3H, Red Blood Count 5.30, Hemoglobin 15.2, Hematocrit 48.6 , Mean Corpuscular Volume 92, Mean Corpuscular Hemoglobin 28.6, Mean Corpuscular Hemoglobin Concent 31.2L, Red Cell Distribution Width 13.2, Platelet Count 291, Mean Platelet Volume 7.7, Neutrophils (%) (Auto) 79.4H, Lymphocytes (%) (Auto) 13.1L, Monocytes (%) (Auto) 6.3, Eosinophils (%) (Auto) 0.2, Basophils (%) (Auto) 1.0, Sodium Level 136, Potassium Level 3.2L, Chloride Level 85L, Carbon Dioxide Level 43*H, Anion Gap 8, Blood Urea Nitrogen 45H, Creatinine 1.7H, Estimat Glomerular Filtration Rate 54.4, Glucose Level 154#H, Hemoglobin A1c 7.2H, Uric Acid 11.8H, Calcium Level 10.1, Phosphorus Level 4.3, Magnesium Level 2.8H, Total Bilirubin 0.4, Gamma Glutamyl Transpeptidase 51, Aspartate Amino Transf (AST/SGOT) 15, Alanine Aminotransferase (ALT/SGPT) 14, Alkaline Phosphatase 81, Total Creatine Kinase 180, Troponin I 0.006, Pro-B- Type Natriuretic Peptide 115, Total Protein 8.2, Albumin 3.9, Globulin 4.3, Albumin/Globulin Ratio 0.9L, Triglycerides Level 369H, Cholesterol Level 229H, LDL Cholesterol 117H, HDL Cholesterol 67H, Cholesterol/HDL Ratio 3.4, Thyroid Stimulating Hormone (TSH) 2.365 06/08/17 08:40: Cortisol AM Sample [Pending] Height (Feet): 5 Height (Inches): 11.00 Weight (Pounds): 300 General Appearance: no apparent distress Cardiovascular: normal rate Respiratory/Chest: decreased breath sounds Abdomen: other - obese NERY TODD Jun 08, 2017 12:09
--- NOTE | 2017-06-08 13:44 | Cardiology Progress Note ---
Assessment/Plan Status: stable, progressing Status Narrative Dyspnea, ? COPD. Preserved LV function, no signif valve disease by ECHO this adm. s/p L lobectomy remotely ( [place]) Assessment/Plan Continue supportive care. Diamox prn , as pt w/ met alkalosis. Supplement K Subjective ROS Limited/Unobtainable: No Subjective Cardiology for Dr. Kamara Alert, in NAD. c/o nausea/ vomiting yesterday - now resolved Objective Last 24 Hour Vital Signs Date Time Temp Pulse Resp B/P (MAP) Pulse Ox O2 Delivery O2 Flow Rate FiO2 06/08/17 11:33 80 18 98 Nasal Cannula 4.0 36 06/08/17 11:25 36 06/08/17 11:25 78 18 98 Nasal Cannula 4.0 36 06/08/17 10:15 97.5 06/08/17 08:00 97.5 75 20 97/47 99 Nasal Cannula 4.0 06/08/17 08:00 77 06/08/17 07:30 100 Nasal Cannula 4.0 36 06/08/17 07:30 Nasal Cannula 06/08/17 07:30 Nasal Cannula 06/08/17 07:30 86 16 Nasal Cannula 4.0 36 06/08/17 07:30 Nasal Cannula 4.0 36 06/08/17 04:00 74 06/08/17 04:00 97.9 60 20 97/56 100 06/08/17 03:57 68 18 96 Nasal Cannula 4.0 36 06/08/17 03:57 36 06/08/17 00:00 80 06/08/17 00:00 97.0 72 18 103/70 96 06/07/17 23:59 85 18 98 Nasal Cannula 4.0 36 06/07/17 23:52 36 06/07/17 23:49 85 18 98 Nasal Cannula 4.0 36 06/07/17 20:00 97.0 72 18 109/70 97 06/07/17 20:00 80 06/07/17 18:46 88 19 100 Nasal Cannula 4.0 36 06/07/17 18:41 88 19 100 Nasal Cannula 4.0 36 06/07/17 18:41 36 06/07/17 18:40 100 Nasal Cannula 4.0 36 06/07/17 18:40 Nasal Cannula 4.0 36 06/07/17 18:37 88 19 Nasal Cannula 4.0 36 06/07/17 16:00 103 06/07/17 16:00 97.6 66 19 125/70 98 Nasal Cannula 4.0 General Appearance: WD/WN, no apparent distress, alert EENT: PERRL/EOMI Neck: supple, no JVD Rhythm: NSR Cardiovascular: normal rate, regular rhythm, no gallop/murmur Respiratory/Chest: other - dec BS L. R - clear Abdomen: normal bowel sounds, non tender, soft Extremities: normal range of motion, non-tender, no swelling Intake and Output 06/07/17 06/08/17 19:00 07:00 Intake Total 1111 ml Output Total 900 ml 1500 ml Balance 211 ml -1500 ml Intake Oral 700 ml IV Total 411 ml Output Urine Total 900 ml 1500 ml Laboratory Tests Test 06/08/17 04:00 06/08/17 05:40 06/08/17 08:40 White Blood Count 11.3 K/UL (4.8-10.8) H Red Blood Count 5.30 M/UL (4.70-6.10) Hemoglobin 15.2 G/DL (14.2-18.0) Hematocrit 48.6 % (42.0-52.0) Mean Corpuscular Volume 92 FL (80-99) Mean Corpuscular Hemoglobin 28.6 PG (27.0-31.0) Mean Corpuscular Hemoglobin Concent 31.2 G/DL (32.0-36.0) L Red Cell Distribution Width 13.2 % (11.6-14.8) Platelet Count 291 K/UL (150-450) Mean Platelet Volume 7.7 FL (6.5-10.1) Neutrophils (%) (Auto) 79.4 % (45.0-75.0) H Lymphocytes (%) (Auto) 13.1 % (20.0-45.0) L Monocytes (%) (Auto) 6.3 % (1.0-10.0) Eosinophils (%) (Auto) 0.2 % (0.0-3.0) Basophils (%) (Auto) 1.0 % (0.0-2.0) Sodium Level 136 MMOL/L (136-145) Potassium Level 3.2 MMOL/L (3.5-5.1) L Chloride Level 85 MMOL/L (98-107) L Carbon Dioxide Level 43 MMOL/L (21-32) *H Anion Gap 8 mmol/L (5-15) Blood Urea Nitrogen 45 mg/dL (7-18) H Creatinine 1.7 MG/DL (0.55-1.30) H Estimat Glomerular Filtration Rate 54.4 mL/min (>60) Glucose Level 154 MG/DL (74-106) #H Hemoglobin A1c 7.2 % (4.3-6.0) H Uric Acid 11.8 MG/DL (2.6-7.2) H Calcium Level 10.1 MG/DL (8.5-10.1) Phosphorus Level 4.3 MG/DL (2.5-4.9) Magnesium Level 2.8 MG/DL (1.8-2.4) H Total Bilirubin 0.4 MG/DL (0.2-1.0) Gamma Glutamyl Transpeptidase 51 U/L (5-85) Aspartate Amino Transf (AST/SGOT) 15 U/L (15-37) Alanine Aminotransferase (ALT/SGPT) 14 U/L (12-78) Alkaline Phosphatase 81 U/L (46-116) Total Creatine Kinase 180 U/L (26-308) Troponin I 0.006 ng/mL (0.000-0.056) Pro-B-Type Natriuretic Peptide 115 pg/mL (0-125) Total Protein 8.2 G/DL (6.4-8.2) Albumin 3.9 G/DL (3.4-5.0) Globulin 4.3 g/dL Albumin/Globulin Ratio 0.9 (1.0-2.7) L Triglycerides Level 369 MG/DL (30-150) H Cholesterol Level 229 MG/DL (< 200) H LDL Cholesterol 117 mg/dL (<100) H HDL Cholesterol 67 MG/DL (40-60) H Cholesterol/HDL Ratio 3.4 (3.3-4.4) Thyroid Stimulating Hormone (TSH) 2.365 uiU/mL (0.358-3.740) C-Reactive Protein, Quantitative 1.0 mg/dL (0.00-0.90) H Cortisol AM Sample Pending VIET BENAVIDES Jun 08, 2017 13:44
[2017-06-08 16:00] VITALS: BP 113/59
[2017-06-08] MEDS: Azithromycin 250 MG in D5W 275 ML IV SCH (17:43)
[2017-06-08] MEDS ORDERED: NaCl 3% 500ml 250 ML IV ONE ×2 (20:00)
[2017-06-08] MEDS ORDERED: Promethazine/Codeine 5ml UD ORAL PRN (20:00)
[2017-06-08] MEDS ORDERED: Nitroglycerin Subl 0.4mg tab SL PRN (20:00)
[2017-06-08 20:31] VITALS: BP 133/84
[2017-06-08] MEDS: Tamsulosin 0.4mg cap ORAL SCH (21:39)
[2017-06-08] MEDS ORDERED: Tubing IV Secondary IV ONE (22:55)
[2017-06-09] MEDS: Albuterol/Ipratropium 3ml neb HHN SCH ×4 (03:00→10:51)
[2017-06-09 04:00] VITALS: BP 106/53
[2017-06-09] MEDS: Morphine Sulfate 2mg/ml Inj IVP PRN ×4 (05:26→21:55)
[2017-06-09] MEDS: Heparin 5000 units/ml inj SUBQ SCH ×2 (05:30→17:31)
[2017-06-09] MEDS: sitaGLIPtin 50mg tab ORAL SCH (06:26)
[2017-06-09] MEDS ORDERED: sitaGLIPtin 50mg tab ORAL SCH (06:30)
[2017-06-09 07:57] LABS: BASOPHILS % (AUTO) 0.6 % (0.0-2.0); EOSINOPHILS % (AUTO) 2.9 % (0.0-3.0); HEMATOCRIT 48.3 % (42.0-52.0); LYMPHOCYTES % (AUTO) 11.7 % (20.0-45.0); MEAN CORPUSCULAR VOLUME 92 FL (80-99); MONOCYTES % (AUTO) 6.2 % (1.0-10.0); NEUTROPHILS % (AUTO) 78.6 % (45.0-75.0); PLATELET COUNT 265 K/UL (150-450); RED BLOOD COUNT 5.23 M/UL (4.70-6.10); RED CELL DISTRIBUTION WIDTH 13.5 % (11.6-14.8); WHITE BLOOD COUNT 10.9 K/UL (4.8-10.8)
[2017-06-09 08:00] VITALS: BP 121/59
[2017-06-09 08:23] LABS: ALANINE AMINOTRANSFERASE 21 U/L (12-78); ALBUMIN 3.6 G/DL (3.4-5.0); ALBUMIN/GLOBULIN RATIO 0.8 (1.0-2.7); ALKALINE PHOSPHATASE 86 U/L (46-116); ANION GAP 9 mmol/L (5-15); ASPARTATE AMINO TRANSFERASE 31 U/L (15-37); BILIRUBIN,TOTAL 0.6 MG/DL (0.2-1.0); BLOOD UREA NITROGEN 39 mg/dL (7-18); CALCIUM 9.9 MG/DL (8.5-10.1); CARBON DIOXIDE 31 MMOL/L (21-32); CHLORIDE 88 MMOL/L (98-107); CREATININE 1.5 MG/DL (0.55-1.30); PHOSPHORUS 3.5 MG/DL (2.5-4.9); SODIUM 128 MMOL/L (136-145)
--- NOTE | 2017-06-09 09:35 | Diagnostic Imaging Report ---
APPROVED REPORT CPT Code: 13557 Present Symptoms Lower Extremity Edema: Bilateral BILATERAL: Imaging reveals a patent deep venous system bilaterally. There is no evidence of thrombus within the femoral, popliteal or tibial segments. The greater saphenous veins are also within normal limits. Doppler indicates normal spontaneous flow within these segments.
[2017-06-09] MEDS: Theophylline ER 100mg ORAL SCH ×2 (09:40→21:12)
[2017-06-09] MEDS: DULoxetine 30mg cap ORAL SCH (09:41)
[2017-06-09] MEDS: ARIPiprazole 10mg tab ORAL SCH (09:42)
--- NOTE | 2017-06-09 11:07 | Nephrology Progress Note ---
Assessment/Plan Problem List: (1) Acute renal failure (2) COPD exacerbation (3) Diabetes (4) Obesity Assessment Acute renal failure cr lower COPD / Pneumonia / Leukocytosis h/o Testicular Ca 2003 s/p Lobectomy lung CHF Pleural effusion Psych disease Obesity , DM Left ventricular ejection fraction estimated to be 60-65% to extend visualized. No evidence of left ventricular hypertrophy. Unremarkable renal sonogram. No evidence of hydronephrosis or sonographically appreciable renal stones as questioned clinically. Persistent right lower lung patchy opacities and small right pleural effusion. Findings are slightly decreased compared to exam 4 days prior. Plan Plan: another 3% bollous urine studies avoid Nepgrotoxics monitor renal parameters add Januvia down on diamox add Allopurinol Subjective ROS Limited/Unobtainable: No Constitutional: Reports: malaise Objective Objective Last 24 Hour Vital Signs Date Time Temp Pulse Resp B/P (MAP) Pulse Ox O2 Delivery O2 Flow Rate FiO2 06/09/17 11:00 86 20 99 Nasal Cannula 3.0 32 06/09/17 10:51 84 18 99 Nasal Cannula 4.0 36 06/09/17 08:00 97.8 92 19 121/59 96 Nasal Cannula 3.0 06/09/17 07:12 79 18 99 Nasal Cannula 4.0 36 06/09/17 07:01 Nasal Cannula 4.0 36 06/09/17 07:01 77 20 Nasal Cannula 4.0 36 06/09/17 07:01 77 20 99 Nasal Cannula 4.0 36 06/09/17 07:01 100 Nasal Cannula 4.0 36 06/09/17 05:16 90 22 96 Nasal Cannula 4.0 36 06/09/17 04:00 97.4 83 19 106/53 95 Nasal Cannula 4.0 06/09/17 03:10 Nasal Cannula 4.0 06/09/17 03:10 Nasal Cannula 4.0 06/08/17 23:28 36 06/08/17 23:28 91 20 98 Nasal Cannula 4.0 36 06/08/17 23:11 85 23 97 Nasal Cannula 4.0 36 06/08/17 20:32 Nasal Cannula 4.0 06/08/17 20:31 98.1 81 19 133/84 100 06/08/17 19:27 97.2 06/08/17 19:00 87 19 98 Nasal Cannula 4.0 36 06/08/17 18:45 36 06/08/17 18:45 87 19 98 Nasal Cannula 4.0 36 06/08/17 18:44 98 Nasal Cannula 4.0 36 06/08/17 18:44 Nasal Cannula 4.0 36 06/08/17 18:43 87 19 Nasal Cannula 4.0 36 06/08/17 16:00 97.2 78 19 113/59 99 Nasal Cannula 4.0 06/08/17 16:00 84 06/08/17 15:15 Nasal Cannula 06/08/17 15:15 Nasal Cannula 06/08/17 12:00 86 06/08/17 12:00 97.7 89 22 108/89 99 Nasal Cannula 4.0 06/08/17 11:33 80 18 98 Nasal Cannula 4.0 36 06/08/17 11:25 36 06/08/17 11:25 78 18 98 Nasal Cannula 4.0 36 Intake and Output 06/08/17 06/09/17 19:00 07:00 Intake Total 300 ml 630 ml Output Total 400 ml Balance -100 ml 630 ml Intake Oral 300 ml 480 ml IV Total 150 ml Output Urine Total 400 ml # Voids 3 Laboratory Tests 06/09/17 07:05: White Blood Count 10.9H, Red Blood Count 5.23, Hemoglobin 15.0, Hematocrit 48.3 , Mean Corpuscular Volume 92, Mean Corpuscular Hemoglobin 28.7, Mean Corpuscular Hemoglobin Concent 31.1L, Red Cell Distribution Width 13.5, Platelet Count 265, Mean Platelet Volume 7.5, Neutrophils (%) (Auto) 78.6H, Lymphocytes (%) (Auto) 11.7L, Monocytes (%) (Auto) 6.2, Eosinophils (%) (Auto) 2.9, Basophils (%) (Auto) 0.6, Sodium Level 128L, Potassium Level 4.0, Chloride Level 88L, Carbon Dioxide Level 31, Anion Gap 9, Blood Urea Nitrogen 39H, Creatinine 1.5H, Estimat Glomerular Filtration Rate > 60, Glucose Level 162H, Uric Acid 10.8H, Calcium Level 9.9, Phosphorus Level 3.5, Magnesium Level 2.5H, Total Bilirubin 0.6, Aspartate Amino Transf (AST/SGOT) 31, Alanine Aminotransferase (ALT/SGPT) 21, Alkaline Phosphatase 86, Total Protein 8.2, Albumin 3.6, Globulin 4.6, Albumin/Globulin Ratio 0.8L Height (Feet): 5 Height (Inches): 11.00 Weight (Pounds): 300 General Appearance: no apparent distress Respiratory/Chest: decreased breath sounds Abdomen: soft, other - obese Objective no other changes NERY TODD Jun 09, 2017 11:07
[2017-06-09] MEDS ORDERED: NaCl 3% 500ml 500 ML IV ONE (12:00)
[2017-06-09 12:07] VITALS: BP 126/79
--- NOTE | 2017-06-09 12:52 | Pulmonology Progress Note ---
Assessment/Plan Assessment/Plan ASSESSMENT Asthma/COPD exacerbation PNA Left pleural effusion CHF Acute renal failure morbid obesity hx of lung Ca, s/p lobectomy hx of testicular Ca PLAN OF CARE MS floor s/p Lasix gtt Cardio follows ECHO with pEF 60-65% Edema likely due to R sided heart failure as per cardio O2 HHN prn Theophylline s/p steroids empiric abx ID follows sputum cx negative; blood cx negative, influenza screen negative Venous Duplex BLE negative HIV test negative Clinically improving CXR in am nephro follows renal US negative monitor renal parameters, lytes, avoid nephrotoxics creat down to 1.5 another 3% NaCl today as per nephro decrease Diamox dose DVT GI prophylaxis case discussed and evaluated by supervising physician Subjective Allergies: Coded Allergies: No Known Allergies (Unverified , 09/09/14) Subjective denies chest pain, on O2 via NC pulse ox stable no signs of respiratory distress intermittent SOB Objective Last 24 Hour Vital Signs Date Time Temp Pulse Resp B/P (MAP) Pulse Ox O2 Delivery O2 Flow Rate FiO2 06/09/17 12:07 98.0 94 19 126/79 94 Nasal Cannula 2.0 06/09/17 11:00 86 20 99 Nasal Cannula 3.0 32 06/09/17 10:51 84 18 99 Nasal Cannula 4.0 36 06/09/17 08:00 97.8 92 19 121/59 96 Nasal Cannula 3.0 06/09/17 07:12 79 18 99 Nasal Cannula 4.0 36 06/09/17 07:01 Nasal Cannula 4.0 36 06/09/17 07:01 77 20 Nasal Cannula 4.0 36 06/09/17 07:01 77 20 99 Nasal Cannula 4.0 36 06/09/17 07:01 100 Nasal Cannula 4.0 36 06/09/17 05:16 90 22 96 Nasal Cannula 4.0 36 06/09/17 04:00 97.4 83 19 106/53 95 Nasal Cannula 4.0 06/09/17 03:10 Nasal Cannula 4.0 06/09/17 03:10 Nasal Cannula 4.0 06/08/17 23:28 36 06/08/17 23:28 91 20 98 Nasal Cannula 4.0 36 06/08/17 23:11 85 23 97 Nasal Cannula 4.0 36 06/08/17 20:32 Nasal Cannula 4.0 06/08/17 20:31 98.1 81 19 133/84 100 06/08/17 19:27 97.2 06/08/17 19:00 87 19 98 Nasal Cannula 4.0 36 06/08/17 18:45 36 06/08/17 18:45 87 19 98 Nasal Cannula 4.0 36 06/08/17 18:44 98 Nasal Cannula 4.0 36 06/08/17 18:44 Nasal Cannula 4.0 36 06/08/17 18:43 87 19 Nasal Cannula 4.0 36 06/08/17 16:00 97.2 78 19 113/59 99 Nasal Cannula 4.0 06/08/17 16:00 84 06/08/17 15:15 Nasal Cannula 06/08/17 15:15 Nasal Cannula Intake and Output 06/08/17 06/09/17 19:00 07:00 Intake Total 300 ml 630 ml Output Total 400 ml Balance -100 ml 630 ml Intake Oral 300 ml 480 ml IV Total 150 ml Output Urine Total 400 ml # Voids 3 Objective General Appearance: no acute distress, A/A/O morbidly obese AA male HEENT: normocephalic, atraumatic, anicteric, O 2 via NC Respiratory/Chest: lungs clear, no respiratory distress Cardiovascular: normal rate, +1 edema - BLE Abdomen: normal bowel sounds, soft, non tender - obese Neurologic/Psychiatric: alert, normal mood/affect Musculoskeletal: normal muscle bulk Laboratory Tests 06/09/17 07:05: White Blood Count 10.9H, Red Blood Count 5.23, Hemoglobin 15.0, Hematocrit 48.3 , Mean Corpuscular Volume 92, Mean Corpuscular Hemoglobin 28.7, Mean Corpuscular Hemoglobin Concent 31.1L, Red Cell Distribution Width 13.5, Platelet Count 265, Mean Platelet Volume 7.5, Neutrophils (%) (Auto) 78.6H, Lymphocytes (%) (Auto) 11.7L, Monocytes (%) (Auto) 6.2, Eosinophils (%) (Auto) 2.9, Basophils (%) (Auto) 0.6, Sodium Level 128L, Potassium Level 4.0, Chloride Level 88L, Carbon Dioxide Level 31, Anion Gap 9, Blood Urea Nitrogen 39H, Creatinine 1.5H, Estimat Glomerular Filtration Rate > 60, Glucose Level 162H, Uric Acid 10.8H, Calcium Level 9.9, Phosphorus Level 3.5, Magnesium Level 2.5H, Total Bilirubin 0.6, Aspartate Amino Transf (AST/SGOT) 31, Alanine Aminotransferase (ALT/SGPT) 21, Alkaline Phosphatase 86, Total Protein 8.2, Albumin 3.6, Globulin 4.6, Albumin/Globulin Ratio 0.8L Current Medications Medications (Trade) Dose Ordered Sig/Kayla Route PRN Reason Start Time Stop Time Status Last Admin Dose Admin Acetazolamide (Diamox) 125 mg DAILY ORAL 06/10/17 09:00 07/10/17 08:59 Albuterol/ Ipratropium (Albuterol/ Ipratropium) 3 ml Q4HRT HHN 06/08/17 23:00 06/13/17 06:59 06/09/17 10:51 Allopurinol (Allopurinol) 300 mg DAILY ORAL 06/09/17 09:00 07/09/17 08:59 06/09/17 09:42 Aripiprazole (Abilify) 20 mg DAILY ORAL 06/09/17 09:00 07/04/17 08:59 06/09/17 09:42 Atorvastatin Calcium (Lipitor) 10 mg BEDTIME ORAL 06/08/17 21:00 07/08/17 20:59 06/08/17 21:37 Azithromycin 250 mg/Dextrose 275 ml @ 275 mls/hr Q24H IV 06/09/17 17:00 06/11/17 17:01 Dextrose (Dextrose 50%) STAT PRN IV Hypoglycemia 06/08/17 20:00 07/08/17 19:59 Duloxetine HCl (Cymbalta) 60 mg DAILY ORAL 06/09/17 09:00 07/04/17 08:59 06/09/17 09:41 Heparin Sodium (Porcine) (Heparin 5000 units/ml) 5,000 units Q12H SUBQ 06/09/17 06:00 07/06/17 05:59 06/09/17 05:30 Lorazepam (Ativan 2mg/ml 1ml) 2 mg Q4H PRN IV For Anxiety 06/08/17 20:00 06/14/17 19:59 Morphine Sulfate (Morphine Sulfate) 2 mg Q4H PRN IVP severe pain 7-10 06/08/17 23:00 06/15/17 22:59 06/09/17 09:37 Nitroglycerin (Ntg) 0.4 mg Q5M X 3 DOSES PRN SL Prn Chest Pain 06/08/17 20:00 07/03/17 18:29 Ondansetron HCl (Zofran) 4 mg Q6H PRN IVP Nausea & Vomiting 06/09/17 00:30 07/03/17 18:29 Pantoprazole (Protonix) 40 mg EVERY 12 HOURS ORAL 06/08/17 21:00 07/07/17 20:59 06/09/17 09:41 Promethazine HCl/ Codeine (Phenergan with Codeine) 5 ml Q6H PRN ORAL cough 06/08/17 20:00 07/08/17 19:59 Sitagliptin Phosphate (Januvia) 50 mg ACBREAKFAST ORAL 06/09/17 06:30 07/09/17 06:29 06/09/17 06:26 Sodium Chloride 500 ml @ 30 mls/hr ONCE ONCE IV 06/09/17 12:00 06/10/17 04:39 Tamsulosin HCl (Flomax) 0.4 mg BEDTIME ORAL 06/08/17 21:00 07/07/17 20:59 06/08/17 21:39 Temazepam (Restoril) 15 mg HSPRN PRN ORAL Insomnia 06/08/17 20:00 06/15/17 19:59 Theophylline (Marco Antonio-Dur) 200 mg EVERY 12 HOURS ORAL 06/08/17 21:00 07/07/17 20:59 06/09/17 09:40 [facility] HospitalLissa Pires NP Jun 09, 2017 12:52
[2017-06-09] MEDS: Albuterol/Ipratropium 3ml neb HHN PRN ×2 (13:07→23:06)
--- NOTE | 2017-06-09 15:03 | Cardiology Progress Note ---
Assessment/Plan Status: stable, progressing Status Narrative Dyspnea, ? COPD. Preserved LV function, no signif valve disease by ECHO this adm. s/p L lobectomy remotely ( [place]) Hyponatremia Hypokalemia - resolved CKD Assessment/Plan Stable, continue current meds Fluid restriction for hyponatremia and recheck labs in am. Subjective ROS Limited/Unobtainable: No Subjective Cardiology for Dr. Kamara Sedated/ no c/o Objective Last 24 Hour Vital Signs Date Time Temp Pulse Resp B/P (MAP) Pulse Ox O2 Delivery O2 Flow Rate FiO2 06/09/17 13:17 85 24 99 Nasal Cannula 4.0 36 06/09/17 13:08 82 24 99 Nasal Cannula 4.0 36 06/09/17 12:07 98.0 94 19 126/79 94 Nasal Cannula 2.0 06/09/17 11:00 86 20 99 Nasal Cannula 3.0 32 06/09/17 10:51 84 18 99 Nasal Cannula 4.0 36 06/09/17 08:00 97.8 92 19 121/59 96 Nasal Cannula 3.0 06/09/17 07:12 79 18 99 Nasal Cannula 4.0 36 06/09/17 07:01 Nasal Cannula 4.0 36 06/09/17 07:01 77 20 Nasal Cannula 4.0 36 06/09/17 07:01 77 20 99 Nasal Cannula 4.0 36 06/09/17 07:01 100 Nasal Cannula 4.0 36 06/09/17 05:16 90 22 96 Nasal Cannula 4.0 36 06/09/17 04:00 97.4 83 19 106/53 95 Nasal Cannula 4.0 06/09/17 03:10 Nasal Cannula 4.0 06/09/17 03:10 Nasal Cannula 4.0 06/08/17 23:28 36 06/08/17 23:28 91 20 98 Nasal Cannula 4.0 36 06/08/17 23:11 85 23 97 Nasal Cannula 4.0 36 06/08/17 20:32 Nasal Cannula 4.0 06/08/17 20:31 98.1 81 19 133/84 100 06/08/17 19:27 97.2 06/08/17 19:00 87 19 98 Nasal Cannula 4.0 36 06/08/17 18:45 36 06/08/17 18:45 87 19 98 Nasal Cannula 4.0 36 06/08/17 18:44 98 Nasal Cannula 4.0 36 06/08/17 18:44 Nasal Cannula 4.0 36 06/08/17 18:43 87 19 Nasal Cannula 4.0 36 06/08/17 16:00 97.2 78 19 113/59 99 Nasal Cannula 4.0 06/08/17 16:00 84 06/08/17 15:15 Nasal Cannula 06/08/17 15:15 Nasal Cannula General Appearance: WD/WN, no apparent distress, obese EENT: PERRL/EOMI Neck: supple, no JVD Rhythm: NSR Cardiovascular: normal rate, regular rhythm, no gallop/murmur Respiratory/Chest: chest wall non-tender, lungs clear, no respiratory distress , other - healed surgical scars Abdomen: normal bowel sounds, non tender, soft Intake and Output 06/08/17 06/09/17 19:00 07:00 Intake Total 300 ml 630 ml Output Total 400 ml Balance -100 ml 630 ml Intake Oral 300 ml 480 ml IV Total 150 ml Output Urine Total 400 ml # Voids 3 Laboratory Tests Test 06/09/17 07:05 06/09/17 13:00 White Blood Count 10.9 K/UL (4.8-10.8) H Red Blood Count 5.23 M/UL (4.70-6.10) Hemoglobin 15.0 G/DL (14.2-18.0) Hematocrit 48.3 % (42.0-52.0) Mean Corpuscular Volume 92 FL (80-99) Mean Corpuscular Hemoglobin 28.7 PG (27.0-31.0) Mean Corpuscular Hemoglobin Concent 31.1 G/DL (32.0-36.0) L Red Cell Distribution Width 13.5 % (11.6-14.8) Platelet Count 265 K/UL (150-450) Mean Platelet Volume 7.5 FL (6.5-10.1) Neutrophils (%) (Auto) 78.6 % (45.0-75.0) H Lymphocytes (%) (Auto) 11.7 % (20.0-45.0) L Monocytes (%) (Auto) 6.2 % (1.0-10.0) Eosinophils (%) (Auto) 2.9 % (0.0-3.0) Basophils (%) (Auto) 0.6 % (0.0-2.0) Sodium Level 128 MMOL/L (136-145) L Potassium Level 4.0 MMOL/L (3.5-5.1) Chloride Level 88 MMOL/L (98-107) L Carbon Dioxide Level 31 MMOL/L (21-32) Anion Gap 9 mmol/L (5-15) Blood Urea Nitrogen 39 mg/dL (7-18) H Creatinine 1.5 MG/DL (0.55-1.30) H Estimat Glomerular Filtration Rate > 60 mL/min (>60) Glucose Level 162 MG/DL (74-106) H Uric Acid 10.8 MG/DL (2.6-7.2) H Calcium Level 9.9 MG/DL (8.5-10.1) Phosphorus Level 3.5 MG/DL (2.5-4.9) Magnesium Level 2.5 MG/DL (1.8-2.4) H Total Bilirubin 0.6 MG/DL (0.2-1.0) Aspartate Amino Transf (AST/SGOT) 31 U/L (15-37) Alanine Aminotransferase (ALT/SGPT) 21 U/L (12-78) Alkaline Phosphatase 86 U/L (46-116) Total Protein 8.2 G/DL (6.4-8.2) Albumin 3.6 G/DL (3.4-5.0) Globulin 4.6 g/dL Albumin/Globulin Ratio 0.8 (1.0-2.7) L Urine Osmolality Pending Urine Random Sodium 85 MEQ/L (20-110) VIET BENAVIDES Jun 09, 2017 15:03
[2017-06-09 16:00] VITALS: BP 132/78
[2017-06-09] MEDS ORDERED: Azithromycin 250 MG in D5W 275 ML IV SCH (17:00)
[2017-06-09 20:06] VITALS: BP 111/70
[2017-06-09] MEDS: Tamsulosin 0.4mg cap ORAL SCH (22:14)
[2017-06-10 00:22] VITALS: BP 116/67
[2017-06-10 04:00] VITALS: BP 112/72
[2017-06-10] MEDS: Heparin 5000 units/ml inj SUBQ SCH ×2 (05:25→18:30)
[2017-06-10] MEDS: Morphine Sulfate 2mg/ml Inj IVP PRN ×2 (05:26→09:57)
[2017-06-10] MEDS: sitaGLIPtin 50mg tab ORAL SCH (06:30)
[2017-06-10 07:19] LABS: BASOPHILS % (AUTO) 0.9 % (0.0-2.0); EOSINOPHILS % (AUTO) 3.7 % (0.0-3.0); HEMATOCRIT 48.7 % (42.0-52.0); HEMOGLOBIN 15.3 G/DL (14.2-18.0); LYMPHOCYTES % (AUTO) 7.9 % (20.0-45.0); MEAN CORPUSCULAR VOLUME 91 FL (80-99); MONOCYTES % (AUTO) 7.8 % (1.0-10.0); NEUTROPHILS % (AUTO) 79.7 % (45.0-75.0); PLATELET COUNT 330 K/UL (150-450); RED BLOOD COUNT 5.33 M/UL (4.70-6.10); RED CELL DISTRIBUTION WIDTH 13.5 % (11.6-14.8); WHITE BLOOD COUNT 13.5 K/UL (4.8-10.8)
[2017-06-10 07:31] LABS: ALANINE AMINOTRANSFERASE 31 U/L (12-78); ALBUMIN 3.8 G/DL (3.4-5.0); ALBUMIN/GLOBULIN RATIO 0.9 (1.0-2.7); ALKALINE PHOSPHATASE 94 U/L (46-116); ANION GAP 8 mmol/L (5-15); ASPARTATE AMINO TRANSFERASE 27 U/L (15-37); BILIRUBIN,TOTAL 0.5 MG/DL (0.2-1.0); BLOOD UREA NITROGEN 32 mg/dL (7-18); CALCIUM 9.8 MG/DL (8.5-10.1); CARBON DIOXIDE 31 MMOL/L (21-32); CHLORIDE 91 MMOL/L (98-107); CREATININE 1.2 MG/DL (0.55-1.30); PHOSPHORUS 3.5 MG/DL (2.5-4.9); POTASSIUM 3.9 MMOL/L (3.5-5.1); SODIUM 130 MMOL/L (136-145)
[2017-06-10 08:00] VITALS: BP 107/58
[2017-06-10] MEDS: acetaZOLAMIDE 125mg tab ORAL SCH (09:00)
[2017-06-10] MEDS: DULoxetine 30mg cap ORAL SCH ×2 (09:00→09:38)
[2017-06-10] MEDS: ARIPiprazole 10mg tab ORAL SCH (09:38)
[2017-06-10] MEDS: Theophylline ER 100mg ORAL SCH ×2 (09:38→20:58)
--- NOTE | 2017-06-10 10:21 | Infectious Diseases Prog Note ---
Assessment/Plan Assessment/Plan ASSESSMENT: The patient is a 42-year-old male with Pneumonia/chronic obstructive pulmonary disease exacerbation. Scx: Nl tami -CXR 06/07: Persistent right lower lung patchy opacities and small right pleural effusion. Findings are slightly decreased compared to exam 4 days prior. -f/u neg -Bcx NTD Afebrile leukocytosis ( SP steroids ) mild HIV: neg ISACC , SP COPD. Asthma. History of testicular cancer in 2002. History of lung cancer status post left lob/Pneumectomy PLAN: will monitor pt off of AB Rx DC Zithromax d# 6 -06/07 SP Zosyn # 3 Monitor CBC. Monitor BMP Subjective Constitutional: Denies: no symptoms, fever, chills, fatigue, anorexia, drenching sweats, other Allergies: Coded Allergies: No Known Allergies (Unverified , 09/09/14) Subjective comfortable Objective Vital Signs Last 24 Hour Vital Signs Date Time Temp Pulse Resp B/P (MAP) Pulse Ox O2 Delivery O2 Flow Rate FiO2 06/10/17 08:00 96.7 73 18 107/58 96 06/10/17 07:59 75 18 Nasal Cannula 4.0 36 06/10/17 07:59 Nasal Cannula 4.0 36 06/10/17 07:59 98 Nasal Cannula 4.0 36 06/10/17 04:00 98.7 70 19 112/72 100 06/10/17 00:22 98.6 79 20 116/67 100 06/09/17 23:19 89 24 99 Nasal Cannula 4.0 36 06/09/17 23:07 75 24 99 Nasal Cannula 4.0 36 06/09/17 20:06 98.9 73 20 111/70 100 06/09/17 19:00 Nasal Cannula 4.0 36 06/09/17 19:00 99 Nasal Cannula 4.0 36 06/09/17 19:00 75 20 Nasal Cannula 4.0 36 06/09/17 16:00 98.2 92 19 132/78 96 Nasal Cannula 2.0 06/09/17 13:17 85 24 99 Nasal Cannula 4.0 36 06/09/17 13:08 82 24 99 Nasal Cannula 4.0 36 06/09/17 12:07 98.0 94 19 126/79 94 Nasal Cannula 2.0 06/09/17 11:00 86 20 99 Nasal Cannula 3.0 32 06/09/17 10:51 84 18 99 Nasal Cannula 4.0 36 Height (Feet): 5 Height (Inches): 11.00 Weight (Pounds): 300 HEENT: mucous membranes moist Respiratory/Chest: no respiratory distress Cardiovascular: no gallop/murmur Abdomen: non distended Laboratory Tests Test 06/09/17 13:00 06/10/17 06:15 Urine Osmolality 650 mOsm/kg (429-449) H Urine Random Sodium 85 MEQ/L (20-110) White Blood Count 13.5 K/UL (4.8-10.8) H Red Blood Count 5.33 M/UL (4.70-6.10) Hemoglobin 15.3 G/DL (14.2-18.0) Hematocrit 48.7 % (42.0-52.0) Mean Corpuscular Volume 91 FL (80-99) Mean Corpuscular Hemoglobin 28.8 PG (27.0-31.0) Mean Corpuscular Hemoglobin Concent 31.5 G/DL (32.0-36.0) L Red Cell Distribution Width 13.5 % (11.6-14.8) Platelet Count 330 K/UL (150-450) Mean Platelet Volume 7.6 FL (6.5-10.1) Neutrophils (%) (Auto) 79.7 % (45.0-75.0) H Lymphocytes (%) (Auto) 7.9 % (20.0-45.0) L Monocytes (%) (Auto) 7.8 % (1.0-10.0) Eosinophils (%) (Auto) 3.7 % (0.0-3.0) H Basophils (%) (Auto) 0.9 % (0.0-2.0) Sodium Level 130 MMOL/L (136-145) L Potassium Level 3.9 MMOL/L (3.5-5.1) Chloride Level 91 MMOL/L (98-107) L Carbon Dioxide Level 31 MMOL/L (21-32) Anion Gap 8 mmol/L (5-15) Blood Urea Nitrogen 32 mg/dL (7-18) H Creatinine 1.2 MG/DL (0.55-1.30) Estimat Glomerular Filtration Rate > 60 mL/min (>60) Glucose Level 165 MG/DL (74-106) H Uric Acid 9.1 MG/DL (2.6-7.2) H Calcium Level 9.8 MG/DL (8.5-10.1) Phosphorus Level 3.5 MG/DL (2.5-4.9) Magnesium Level 2.4 MG/DL (1.8-2.4) Total Bilirubin 0.5 MG/DL (0.2-1.0) Aspartate Amino Transf (AST/SGOT) 27 U/L (15-37) Alanine Aminotransferase (ALT/SGPT) 31 U/L (12-78) Alkaline Phosphatase 94 U/L (46-116) Total Protein 8.2 G/DL (6.4-8.2) Albumin 3.8 G/DL (3.4-5.0) Globulin 4.4 g/dL Albumin/Globulin Ratio 0.9 (1.0-2.7) L Current Medications Medications (Trade) Dose Ordered Sig/Kayla Route PRN Reason Start Time Stop Time Status Last Admin Dose Admin Acetazolamide (Diamox) 125 mg DAILY ORAL 06/10/17 09:00 07/10/17 08:59 Albuterol/ Ipratropium (Albuterol/ Ipratropium) 3 ml Q4H PRN HHN Shortness of Breath 06/09/17 13:00 06/14/17 12:59 06/09/17 23:06 Allopurinol (Allopurinol) 300 mg DAILY ORAL 06/09/17 09:00 07/09/17 08:59 06/10/17 09:38 Aripiprazole (Abilify) 20 mg DAILY ORAL 06/09/17 09:00 07/04/17 08:59 06/10/17 09:38 Atorvastatin Calcium (Lipitor) 10 mg BEDTIME ORAL 06/08/17 21:00 07/08/17 20:59 06/09/17 21:12 Azithromycin 250 mg/Dextrose 275 ml @ 275 mls/hr Q24H IV 06/09/17 17:00 06/11/17 17:01 06/09/17 17:15 Dextrose (Dextrose 50%) STAT PRN IV Hypoglycemia 06/08/17 20:00 07/08/17 19:59 Duloxetine HCl (Cymbalta) 60 mg DAILY ORAL 06/09/17 09:00 07/04/17 08:59 06/10/17 09:38 Heparin Sodium (Porcine) (Heparin 5000 units/ml) 5,000 units Q12H SUBQ 06/09/17 06:00 07/06/17 05:59 06/10/17 05:25 Lorazepam (Ativan 2mg/ml 1ml) 2 mg Q4H PRN IV For Anxiety 06/08/17 20:00 06/14/17 19:59 Morphine Sulfate (Morphine Sulfate) 2 mg Q4H PRN IVP severe pain 7-10 06/08/17 23:00 06/15/17 22:59 06/10/17 09:57 Nitroglycerin (Ntg) 0.4 mg Q5M X 3 DOSES PRN SL Prn Chest Pain 06/08/17 20:00 07/03/17 18:29 Ondansetron HCl (Zofran) 4 mg Q6H PRN IVP Nausea & Vomiting 06/09/17 00:30 07/03/17 18:29 06/10/17 05:23 Pantoprazole (Protonix) 40 mg EVERY 12 HOURS ORAL 06/08/17 21:00 07/07/17 20:59 06/10/17 09:38 Promethazine HCl/ Codeine (Phenergan with Codeine) 5 ml Q6H PRN ORAL cough 06/08/17 20:00 07/08/17 19:59 Sitagliptin Phosphate (Januvia) 50 mg ACBREAKFAST ORAL 06/09/17 06:30 07/09/17 06:29 06/10/17 06:30 Tamsulosin HCl (Flomax) 0.4 mg BEDTIME ORAL 06/08/17 21:00 07/07/17 20:59 06/09/17 22:14 Temazepam (Restoril) 15 mg HSPRN PRN ORAL Insomnia 06/08/17 20:00 06/15/17 19:59 Theophylline (Marco Antonio-Dur) 200 mg EVERY 12 HOURS ORAL 06/08/17 21:00 07/07/17 20:59 06/10/17 09:38 JUANA CORBIN M.D. Jun 10, 2017 10:21
[2017-06-10 12:00] VITALS: BP 137/64
--- NOTE | 2017-06-10 15:04 | Pulmonology Progress Note ---
Assessment/Plan Problems: (1) Pleural effusion (2) CHF (congestive heart failure) (3) COPD exacerbation (4) S/P lobectomy of lung Assessment/Plan bun/creaine better all noted feeling much better no new complains dc home with close f/u by primary Subjective ROS Limited/Unobtainable: No Allergies: Coded Allergies: No Known Allergies (Unverified , 09/09/14) Objective Last 24 Hour Vital Signs Date Time Temp Pulse Resp B/P (MAP) Pulse Ox O2 Delivery O2 Flow Rate FiO2 06/10/17 12:00 98.2 75 19 137/64 98 06/10/17 08:00 96.7 73 18 107/58 96 06/10/17 07:59 75 18 Nasal Cannula 4.0 36 06/10/17 07:59 Nasal Cannula 4.0 36 06/10/17 07:59 98 Nasal Cannula 4.0 36 06/10/17 04:00 98.7 70 19 112/72 100 06/10/17 00:22 98.6 79 20 116/67 100 06/09/17 23:19 89 24 99 Nasal Cannula 4.0 36 06/09/17 23:07 75 24 99 Nasal Cannula 4.0 36 06/09/17 20:06 98.9 73 20 111/70 100 06/09/17 19:00 Nasal Cannula 4.0 36 06/09/17 19:00 99 Nasal Cannula 4.0 36 06/09/17 19:00 75 20 Nasal Cannula 4.0 36 06/09/17 16:00 98.2 92 19 132/78 96 Nasal Cannula 2.0 Intake and Output 06/09/17 06/10/17 19:00 07:00 Intake Total 650 ml 360 ml Balance 650 ml 360 ml Intake Oral 650 ml 360 ml # Voids 5 2 Objective General Appearance: no acute distress, other - A/A/O x 3 morbidly obese AA male in NAD HEENT: normocephalic, atraumatic, anicteric, mucous membranes moist Respiratory/Chest: lungs clear -with moderate air exchange no respiratory distress, no accessory muscle use Cardiovascular: normal rate Abdomen: normal bowel sounds, soft, non tender , obese Extremities: pedal pulses normal, other - +1 edema BLE Neurologic/Psychiatric: no motor/sensory deficits, alert, oriented x 3, responsive Musculoskeletal: normal muscle bulk Laboratory Tests 06/10/17 06:15: White Blood Count 13.5H, Red Blood Count 5.33, Hemoglobin 15.3, Hematocrit 48.7 , Mean Corpuscular Volume 91, Mean Corpuscular Hemoglobin 28.8, Mean Corpuscular Hemoglobin Concent 31.5L, Red Cell Distribution Width 13.5, Platelet Count 330, Mean Platelet Volume 7.6, Neutrophils (%) (Auto) 79.7H, Lymphocytes (%) (Auto) 7.9L, Monocytes (%) (Auto) 7.8, Eosinophils (%) (Auto) 3.7H, Basophils (%) (Auto) 0.9, Sodium Level 130L, Potassium Level 3.9, Chloride Level 91L, Carbon Dioxide Level 31, Anion Gap 8, Blood Urea Nitrogen 32H, Creatinine 1.2, Estimat Glomerular Filtration Rate > 60, Glucose Level 165H , Uric Acid 9.1H, Calcium Level 9.8, Phosphorus Level 3.5, Magnesium Level 2.4, Total Bilirubin 0.5, Aspartate Amino Transf (AST/SGOT) 27, Alanine Aminotransferase (ALT/SGPT) 31, Alkaline Phosphatase 94, Total Protein 8.2, Albumin 3.8, Globulin 4.4, Albumin/Globulin Ratio 0.9L Current Medications Medications (Trade) Dose Ordered Sig/Kayla Route PRN Reason Start Time Stop Time Status Last Admin Dose Admin Acetazolamide (Diamox) 125 mg DAILY ORAL 06/10/17 09:00 07/10/17 08:59 Albuterol/ Ipratropium (Albuterol/ Ipratropium) 3 ml Q4H PRN HHN Shortness of Breath 06/09/17 13:00 06/14/17 12:59 06/09/17 23:06 Allopurinol (Allopurinol) 300 mg DAILY ORAL 06/09/17 09:00 07/09/17 08:59 06/09/17 09:42 Aripiprazole (Abilify) 20 mg DAILY ORAL 06/09/17 09:00 07/04/17 08:59 06/10/17 09:38 Atorvastatin Calcium (Lipitor) 10 mg BEDTIME ORAL 06/08/17 21:00 07/08/17 20:59 06/09/17 21:12 Dextrose (Dextrose 50%) STAT PRN IV Hypoglycemia 06/08/17 20:00 07/08/17 19:59 Duloxetine HCl (Cymbalta) 60 mg DAILY ORAL 06/09/17 09:00 07/04/17 08:59 06/09/17 09:41 Heparin Sodium (Porcine) (Heparin 5000 units/ml) 5,000 units Q12H SUBQ 06/09/17 06:00 07/06/17 05:59 06/10/17 05:25 Lorazepam (Ativan 2mg/ml 1ml) 2 mg Q4H PRN IV For Anxiety 06/08/17 20:00 06/14/17 19:59 Morphine Sulfate (Morphine Sulfate) 2 mg Q4H PRN IVP severe pain 7-10 06/08/17 23:00 06/15/17 22:59 06/10/17 09:57 Nitroglycerin (Ntg) 0.4 mg Q5M X 3 DOSES PRN SL Prn Chest Pain 06/08/17 20:00 07/03/17 18:29 Ondansetron HCl (Zofran) 4 mg Q6H PRN IVP Nausea & Vomiting 06/09/17 00:30 07/03/17 18:29 06/10/17 05:23 Pantoprazole (Protonix) 40 mg EVERY 12 HOURS ORAL 06/08/17 21:00 07/07/17 20:59 06/10/17 09:38 Promethazine HCl/ Codeine (Phenergan with Codeine) 5 ml Q6H PRN ORAL cough 06/08/17 20:00 07/08/17 19:59 Sitagliptin Phosphate (Januvia) 50 mg ACBREAKFAST ORAL 06/09/17 06:30 07/09/17 06:29 06/10/17 06:30 Tamsulosin HCl (Flomax) 0.4 mg BEDTIME ORAL 06/08/17 21:00 07/07/17 20:59 06/09/17 22:14 Temazepam (Restoril) 15 mg HSPRN PRN ORAL Insomnia 06/08/17 20:00 06/15/17 19:59 Theophylline (Marco Antonio-Dur) 200 mg EVERY 12 HOURS ORAL 06/08/17 21:00 07/07/17 20:59 06/10/17 09:38 GENEVA HOOPER Jun 10, 2017 15:04
[2017-06-10] MEDS ORDERED: JANUVIA50 MG ORAL (15:06)
[2017-06-10] MEDS ORDERED: ABILIFY10 MG ORAL (15:06)
[2017-06-10] MEDS ORDERED: CYMBALTA30 MG ORAL (15:06)
[2017-06-10] MEDS ORDERED: RESTORIL15 MG ORAL (15:06)
--- NOTE | 2017-06-10 15:22 | Nephrology Progress Note ---
Assessment/Plan Problem List: (1) Acute renal failure (2) COPD exacerbation (3) Diabetes (4) Obesity Assessment Acute renal failure cr lower COPD / Pneumonia / Leukocytosis h/o Testicular Ca 2002 s/p Lobectomy lung CHF Pleural effusion Psych disease Obesity , DM Left ventricular ejection fraction estimated to be 60-65% to extend visualized. No evidence of left ventricular hypertrophy. Unremarkable renal sonogram. No evidence of hydronephrosis or sonographically appreciable renal stones as questioned clinically. Persistent right lower lung patchy opacities and small right pleural effusion. Findings are slightly decreased compared to exam 4 days prior. Plan Plan: another 3% bollous PATIENT REFUSES MEDS SELECTIVELY urine studies avoid Nepgrotoxics monitor renal parameters add Januvia down on diamox add Allopurinol Subjective ROS Limited/Unobtainable: No Constitutional: Reports: malaise Objective Objective Last 24 Hour Vital Signs Date Time Temp Pulse Resp B/P (MAP) Pulse Ox O2 Delivery O2 Flow Rate FiO2 06/10/17 12:00 98.2 75 19 137/64 98 06/10/17 08:00 96.7 73 18 107/58 96 06/10/17 07:59 75 18 Nasal Cannula 4.0 36 06/10/17 07:59 Nasal Cannula 4.0 36 06/10/17 07:59 98 Nasal Cannula 4.0 36 06/10/17 04:00 98.7 70 19 112/72 100 06/10/17 00:22 98.6 79 20 116/67 100 06/09/17 23:19 89 24 99 Nasal Cannula 4.0 36 06/09/17 23:07 75 24 99 Nasal Cannula 4.0 36 06/09/17 20:06 98.9 73 20 111/70 100 06/09/17 19:00 Nasal Cannula 4.0 36 06/09/17 19:00 99 Nasal Cannula 4.0 36 06/09/17 19:00 75 20 Nasal Cannula 4.0 36 06/09/17 16:00 98.2 92 19 132/78 96 Nasal Cannula 2.0 Intake and Output 06/09/17 06/10/17 19:00 07:00 Intake Total 650 ml 360 ml Balance 650 ml 360 ml Intake Oral 650 ml 360 ml # Voids 5 2 Laboratory Tests 06/10/17 06:15: White Blood Count 13.5H, Red Blood Count 5.33, Hemoglobin 15.3, Hematocrit 48.7 , Mean Corpuscular Volume 91, Mean Corpuscular Hemoglobin 28.8, Mean Corpuscular Hemoglobin Concent 31.5L, Red Cell Distribution Width 13.5, Platelet Count 330, Mean Platelet Volume 7.6, Neutrophils (%) (Auto) 79.7H, Lymphocytes (%) (Auto) 7.9L, Monocytes (%) (Auto) 7.8, Eosinophils (%) (Auto) 3.7H, Basophils (%) (Auto) 0.9, Sodium Level 130L, Potassium Level 3.9, Chloride Level 91L, Carbon Dioxide Level 31, Anion Gap 8, Blood Urea Nitrogen 32H, Creatinine 1.2, Estimat Glomerular Filtration Rate > 60, Glucose Level 165H , Uric Acid 9.1H, Calcium Level 9.8, Phosphorus Level 3.5, Magnesium Level 2.4, Total Bilirubin 0.5, Aspartate Amino Transf (AST/SGOT) 27, Alanine Aminotransferase (ALT/SGPT) 31, Alkaline Phosphatase 94, Total Protein 8.2, Albumin 3.8, Globulin 4.4, Albumin/Globulin Ratio 0.9L Height (Feet): 5 Height (Inches): 11.00 Weight (Pounds): 300 General Appearance: no apparent distress Cardiovascular: regular rhythm Respiratory/Chest: decreased breath sounds Abdomen: soft, distended Objective no other changes NERY TODD Jun 10, 2017 15:22
[2017-06-10 16:00] VITALS: BP 145/63
[2017-06-10] MEDS: Albuterol/Ipratropium 3ml neb HHN PRN ×2 (16:28→20:34)
--- NOTE | 2017-06-10 16:45 | Diagnostic Imaging Report ---
Indication: Dyspnea Technique: XRAY Chest 1v Comparison: 06/07/2017 Findings: Prior median sternotomy and multiple surgical clips overlying the left hemithorax. Unchanged white out of the left hemithorax with shift of the mediastinal structures the left. These findings may be related to prior left pneumonectomy. There is persistent patchy right lower lung opacity and small right pleural effusion. These findings are minimally decreased compared to the prior exam. There is no pneumothorax. No acute osseous abnormality seen Impression: Slightly decreased but persistent patchy opacities at the right base and small right pleural effusion.
[2017-06-10 20:15] VITALS: BP 160/75
[2017-06-10] MEDS: LORazepam Inj 2mg/ml 1ml IV PRN (20:57)
[2017-06-10] MEDS: Tamsulosin 0.4mg cap ORAL SCH ×2 (20:57→21:00)
--- NOTE | 2017-06-10 22:46 | General Progress Note ---
Assessment/Plan Status: stable, progressing Subjective Date patient seen: Jun 10, 2017 Neurologic/Psychiatric: Reports: anxiety, depressed, emotional problems Allergies: Coded Allergies: No Known Allergies (Unverified , 09/09/14) Objective Last 24 Hour Vital Signs Date Time Temp Pulse Resp B/P (MAP) Pulse Ox O2 Delivery O2 Flow Rate FiO2 06/10/17 20:41 80 22 99 Nasal Cannula 4.0 36 06/10/17 20:31 73 18 Nasal Cannula 4.0 36 06/10/17 20:31 36 06/10/17 20:31 73 18 99 Nasal Cannula 4.0 36 06/10/17 20:31 Nasal Cannula 4.0 36 06/10/17 20:31 99 Nasal Cannula 4.0 36 06/10/17 20:15 98.6 83 20 160/75 100 06/10/17 16:33 93 24 99 Nasal Cannula 4.0 36 06/10/17 16:20 79 24 99 Nasal Cannula 4.0 36 06/10/17 16:00 98.0 81 20 145/63 96 06/10/17 12:00 98.2 75 19 137/64 98 06/10/17 08:00 96.7 73 18 107/58 96 06/10/17 07:59 75 18 Nasal Cannula 4.0 36 06/10/17 07:59 Nasal Cannula 4.0 36 06/10/17 07:59 98 Nasal Cannula 4.0 36 06/10/17 04:00 98.7 70 19 112/72 100 06/10/17 00:22 98.6 79 20 116/67 100 06/09/17 23:19 89 24 99 Nasal Cannula 4.0 36 06/09/17 23:07 75 24 99 Nasal Cannula 4.0 36 Intake and Output 06/09/17 06/10/17 19:00 07:00 Intake Total 650 ml 360 ml Balance 650 ml 360 ml Intake Oral 650 ml 360 ml # Voids 5 2 Laboratory Tests 06/10/17 06:15: White Blood Count 13.5H, Red Blood Count 5.33, Hemoglobin 15.3, Hematocrit 48.7 , Mean Corpuscular Volume 91, Mean Corpuscular Hemoglobin 28.8, Mean Corpuscular Hemoglobin Concent 31.5L, Red Cell Distribution Width 13.5, Platelet Count 330, Mean Platelet Volume 7.6, Neutrophils (%) (Auto) 79.7H, Lymphocytes (%) (Auto) 7.9L, Monocytes (%) (Auto) 7.8, Eosinophils (%) (Auto) 3.7H, Basophils (%) (Auto) 0.9, Sodium Level 130L, Potassium Level 3.9, Chloride Level 91L, Carbon Dioxide Level 31, Anion Gap 8, Blood Urea Nitrogen 32H, Creatinine 1.2, Estimat Glomerular Filtration Rate > 60, Glucose Level 165H , Uric Acid 9.1H, Calcium Level 9.8, Phosphorus Level 3.5, Magnesium Level 2.4, Total Bilirubin 0.5, Aspartate Amino Transf (AST/SGOT) 27, Alanine Aminotransferase (ALT/SGPT) 31, Alkaline Phosphatase 94, Total Protein 8.2, Albumin 3.8, Globulin 4.4, Albumin/Globulin Ratio 0.9L Height (Feet): 5 Height (Inches): 11.00 Weight (Pounds): 300 General Appearance: no apparent distress, alert Neurologic: alert, oriented x 3, responsive, depressed affect Deshaun Hanna M.D. Jun 10, 2017 22:46
--- NOTE | 2017-06-10 22:47 | Psych Consult Progress Note ---
Psych Consult Progress Note Consult 06/09/17 Vital Signs Last 24 Hour Vital Signs Date Time Temp Pulse Resp B/P (MAP) Pulse Ox O2 Delivery O2 Flow Rate FiO2 06/10/17 20:41 80 22 99 Nasal Cannula 4.0 36 06/10/17 20:31 73 18 Nasal Cannula 4.0 36 06/10/17 20:31 36 06/10/17 20:31 73 18 99 Nasal Cannula 4.0 36 06/10/17 20:31 Nasal Cannula 4.0 36 06/10/17 20:31 99 Nasal Cannula 4.0 36 06/10/17 20:15 98.6 83 20 160/75 100 06/10/17 16:33 93 24 99 Nasal Cannula 4.0 36 06/10/17 16:20 79 24 99 Nasal Cannula 4.0 36 06/10/17 16:00 98.0 81 20 145/63 96 06/10/17 12:00 98.2 75 19 137/64 98 06/10/17 08:00 96.7 73 18 107/58 96 06/10/17 07:59 75 18 Nasal Cannula 4.0 36 06/10/17 07:59 Nasal Cannula 4.0 36 06/10/17 07:59 98 Nasal Cannula 4.0 36 06/10/17 04:00 98.7 70 19 112/72 100 06/10/17 00:22 98.6 79 20 116/67 100 06/09/17 23:19 89 24 99 Nasal Cannula 4.0 36 06/09/17 23:07 75 24 99 Nasal Cannula 4.0 36 Labs Laboratory Tests Test 06/10/17 06:15 White Blood Count 13.5 K/UL (4.8-10.8) H Red Blood Count 5.33 M/UL (4.70-6.10) Hemoglobin 15.3 G/DL (14.2-18.0) Hematocrit 48.7 % (42.0-52.0) Mean Corpuscular Volume 91 FL (80-99) Mean Corpuscular Hemoglobin 28.8 PG (27.0-31.0) Mean Corpuscular Hemoglobin Concent 31.5 G/DL (32.0-36.0) L Red Cell Distribution Width 13.5 % (11.6-14.8) Platelet Count 330 K/UL (150-450) Mean Platelet Volume 7.6 FL (6.5-10.1) Neutrophils (%) (Auto) 79.7 % (45.0-75.0) H Lymphocytes (%) (Auto) 7.9 % (20.0-45.0) L Monocytes (%) (Auto) 7.8 % (1.0-10.0) Eosinophils (%) (Auto) 3.7 % (0.0-3.0) H Basophils (%) (Auto) 0.9 % (0.0-2.0) Sodium Level 130 MMOL/L (136-145) L Potassium Level 3.9 MMOL/L (3.5-5.1) Chloride Level 91 MMOL/L (98-107) L Carbon Dioxide Level 31 MMOL/L (21-32) Anion Gap 8 mmol/L (5-15) Blood Urea Nitrogen 32 mg/dL (7-18) H Creatinine 1.2 MG/DL (0.55-1.30) Estimat Glomerular Filtration Rate > 60 mL/min (>60) Glucose Level 165 MG/DL (74-106) H Uric Acid 9.1 MG/DL (2.6-7.2) H Calcium Level 9.8 MG/DL (8.5-10.1) Phosphorus Level 3.5 MG/DL (2.5-4.9) Magnesium Level 2.4 MG/DL (1.8-2.4) Total Bilirubin 0.5 MG/DL (0.2-1.0) Aspartate Amino Transf (AST/SGOT) 27 U/L (15-37) Alanine Aminotransferase (ALT/SGPT) 31 U/L (12-78) Alkaline Phosphatase 94 U/L (46-116) Total Protein 8.2 G/DL (6.4-8.2) Albumin 3.8 G/DL (3.4-5.0) Globulin 4.4 g/dL Albumin/Globulin Ratio 0.9 (1.0-2.7) L Medications Current Medications Medications (Trade) Dose Ordered Sig/Kayla Route PRN Reason Start Time Stop Time Status Last Admin Dose Admin Acetaminophen (Tylenol) 650 mg Q6H PRN ORAL Mild Pain/Temp > 100.5 06/10/17 17:15 07/10/17 17:14 06/10/17 17:32 Acetazolamide (Diamox) 125 mg DAILY ORAL 06/10/17 09:00 07/10/17 08:59 Albuterol/ Ipratropium (Albuterol/ Ipratropium) 3 ml Q4H PRN HHN Shortness of Breath 06/09/17 13:00 06/14/17 12:59 06/10/17 20:34 Allopurinol (Allopurinol) 300 mg DAILY ORAL 06/09/17 09:00 07/09/17 08:59 06/09/17 09:42 Aripiprazole (Abilify) 20 mg DAILY ORAL 06/09/17 09:00 07/04/17 08:59 06/10/17 09:38 Atorvastatin Calcium (Lipitor) 10 mg BEDTIME ORAL 06/08/17 21:00 07/08/17 20:59 06/09/17 21:12 Dextrose (Dextrose 50%) STAT PRN IV Hypoglycemia 06/08/17 20:00 07/08/17 19:59 Duloxetine HCl (Cymbalta) 60 mg DAILY ORAL 06/09/17 09:00 07/04/17 08:59 06/09/17 09:41 Heparin Sodium (Porcine) (Heparin 5000 units/ml) 5,000 units Q12H SUBQ 06/09/17 06:00 07/06/17 05:59 06/10/17 18:30 Lorazepam (Ativan 2mg/ml 1ml) 2 mg Q4H PRN IV For Anxiety 06/08/17 20:00 06/14/17 19:59 06/10/17 20:57 Nitroglycerin (Ntg) 0.4 mg Q5M X 3 DOSES PRN SL Prn Chest Pain 06/08/17 20:00 07/03/17 18:29 Ondansetron HCl (Zofran) 4 mg Q6H PRN IVP Nausea & Vomiting 06/09/17 00:30 07/03/17 18:29 06/10/17 05:23 Pantoprazole (Protonix) 40 mg EVERY 12 HOURS ORAL 06/08/17 21:00 07/07/17 20:59 06/10/17 20:58 Promethazine HCl/ Codeine (Phenergan with Codeine) 5 ml Q6H PRN ORAL cough 06/08/17 20:00 07/08/17 19:59 Sitagliptin Phosphate (Januvia) 50 mg ACBREAKFAST ORAL 06/09/17 06:30 07/09/17 06:29 06/10/17 06:30 Tamsulosin HCl (Flomax) 0.4 mg BEDTIME ORAL 06/08/17 21:00 07/07/17 20:59 06/09/17 22:14 Temazepam (Restoril) 15 mg HSPRN PRN ORAL Insomnia 06/08/17 20:00 06/15/17 19:59 Theophylline (Marco Antonio-Dur) 200 mg EVERY 12 HOURS ORAL 06/08/17 21:00 07/07/17 20:59 06/10/17 20:58 Problems: (1) CHF (congestive heart failure) Status: Acute (2) COPD exacerbation Status: Acute (3) Pleural effusion (4) Sepsis Status: Acute (5) Preseptal cellulitis of left eye Status: Acute (6) Preseptal cellulitis of left eye Status: Acute (7) Acute renal failure (8) Diabetes (9) Obesity Deshaun Hanna M.D. Jun 10, 2017 22:47
--- NOTE | 2017-06-10 22:49 | General Progress Note ---
Assessment/Plan Problem List: (1) CHF (congestive heart failure) ICD Codes: I50.9 - Heart failure, unspecified SNOMED: 69994492 Qualifiers: Qualified Codes: I50.9 - Heart failure, unspecified (2) COPD exacerbation ICD Codes: J44.1 - Chronic obstructive pulmonary disease with (acute) exacerbation SNOMED: 948389924 (3) Pleural effusion ICD Codes: J90 - Pleural effusion, not elsewhere classified SNOMED: 35606315 (4) Sepsis ICD Codes: A41.9 - Sepsis, unspecified organism SNOMED: 47490435 (5) Preseptal cellulitis of left eye ICD Codes: H00.036 - Abscess of eyelid left eye, unspecified eyelid SNOMED: 443391475 (6) Preseptal cellulitis of left eye ICD Codes: H00.036 - Abscess of eyelid left eye, unspecified eyelid SNOMED: 414047862 (7) Acute renal failure ICD Codes: N17.9 - Acute kidney failure, unspecified SNOMED: 57352065 (8) Diabetes ICD Codes: E11.9 - Type 2 diabetes mellitus without complications SNOMED: 15026637 (9) Obesity ICD Codes: E66.9 - Obesity, unspecified SNOMED: 846089805 Subjective Date patient seen: Jun 08, 2017 Neurologic/Psychiatric: Reports: anxiety, depressed, emotional problems Allergies: Coded Allergies: No Known Allergies (Unverified , 09/09/14) Objective Last 24 Hour Vital Signs Date Time Temp Pulse Resp B/P (MAP) Pulse Ox O2 Delivery O2 Flow Rate FiO2 06/10/17 20:41 80 22 99 Nasal Cannula 4.0 36 06/10/17 20:31 73 18 Nasal Cannula 4.0 36 06/10/17 20:31 36 06/10/17 20:31 73 18 99 Nasal Cannula 4.0 36 06/10/17 20:31 Nasal Cannula 4.0 36 06/10/17 20:31 99 Nasal Cannula 4.0 36 06/10/17 20:15 98.6 83 20 160/75 100 06/10/17 16:33 93 24 99 Nasal Cannula 4.0 36 06/10/17 16:20 79 24 99 Nasal Cannula 4.0 36 06/10/17 16:00 98.0 81 20 145/63 96 06/10/17 12:00 98.2 75 19 137/64 98 06/10/17 08:00 96.7 73 18 107/58 96 06/10/17 07:59 75 18 Nasal Cannula 4.0 36 06/10/17 07:59 Nasal Cannula 4.0 36 06/10/17 07:59 98 Nasal Cannula 4.0 36 06/10/17 04:00 98.7 70 19 112/72 100 06/10/17 00:22 98.6 79 20 116/67 100 06/09/17 23:19 89 24 99 Nasal Cannula 4.0 36 06/09/17 23:07 75 24 99 Nasal Cannula 4.0 36 Intake and Output 06/09/17 06/10/17 19:00 07:00 Intake Total 650 ml 360 ml Balance 650 ml 360 ml Intake Oral 650 ml 360 ml # Voids 5 2 Laboratory Tests 06/10/17 06:15: White Blood Count 13.5H, Red Blood Count 5.33, Hemoglobin 15.3, Hematocrit 48.7 , Mean Corpuscular Volume 91, Mean Corpuscular Hemoglobin 28.8, Mean Corpuscular Hemoglobin Concent 31.5L, Red Cell Distribution Width 13.5, Platelet Count 330, Mean Platelet Volume 7.6, Neutrophils (%) (Auto) 79.7H, Lymphocytes (%) (Auto) 7.9L, Monocytes (%) (Auto) 7.8, Eosinophils (%) (Auto) 3.7H, Basophils (%) (Auto) 0.9, Sodium Level 130L, Potassium Level 3.9, Chloride Level 91L, Carbon Dioxide Level 31, Anion Gap 8, Blood Urea Nitrogen 32H, Creatinine 1.2, Estimat Glomerular Filtration Rate > 60, Glucose Level 165H , Uric Acid 9.1H, Calcium Level 9.8, Phosphorus Level 3.5, Magnesium Level 2.4, Total Bilirubin 0.5, Aspartate Amino Transf (AST/SGOT) 27, Alanine Aminotransferase (ALT/SGPT) 31, Alkaline Phosphatase 94, Total Protein 8.2, Albumin 3.8, Globulin 4.4, Albumin/Globulin Ratio 0.9L Height (Feet): 5 Height (Inches): 11.00 Weight (Pounds): 300 General Appearance: no apparent distress, alert Neurologic: alert, oriented x 3, responsive, depressed affect Deshaun Hanna M.D. Jun 10, 2017 22:49
[2017-06-11 00:49] VITALS: BP 114/66
[2017-06-11] MEDS: LORazepam Inj 2mg/ml 1ml IV PRN ×2 (01:27→09:43)
[2017-06-11 04:40] VITALS: BP 121/70
[2017-06-11] MEDS: sitaGLIPtin 50mg tab ORAL SCH (06:15)
[2017-06-11] MEDS: Heparin 5000 units/ml inj SUBQ SCH (06:19)
[2017-06-11 08:00] VITALS: BP 117/83
[2017-06-11] MEDS: DULoxetine 30mg cap ORAL SCH (09:00)
[2017-06-11] MEDS: ARIPiprazole 10mg tab ORAL SCH (09:00)
[2017-06-11] MEDS: acetaZOLAMIDE 125mg tab ORAL SCH (09:35)
[2017-06-11] MEDS: Theophylline ER 100mg ORAL SCH (09:36)
--- NOTE | 2017-06-11 10:18 | Infectious Diseases Prog Note ---
Assessment/Plan Assessment/Plan ASSESSMENT: The patient is a 42-year-old male with Pneumonia/chronic obstructive pulmonary disease exacerbation. Scx: Nl tami -CXR 06/10 : Slightly decreased but persistent patchy opacities at the right base and small right pleural effusion. -f/u neg -Bcx NTD Afebrile leukocytosis ( SP steroids ) mild no CBC today HIV: neg ISACC , SP COPD. Asthma. History of testicular cancer in 2002. History of lung cancer status post left lob/Pneumectomy PLAN: will monitor pt off of AB Rx 06/10 SP Zithromax d# 6 -06/07 SP Zosyn # 3 Monitor CBC. Monitor BMP Subjective Allergies: Coded Allergies: No Known Allergies (Unverified , 09/09/14) Subjective SOB but no cough Objective Vital Signs Last 24 Hour Vital Signs Date Time Temp Pulse Resp B/P (MAP) Pulse Ox O2 Delivery O2 Flow Rate FiO2 06/11/17 07:05 100 Nasal Cannula 4.0 36 06/11/17 07:05 Nasal Cannula 4.0 36 06/11/17 07:04 82 18 Nasal Cannula 4.0 36 06/11/17 04:40 98.5 85 20 121/70 100 06/11/17 00:49 98.3 87 19 114/66 99 06/10/17 20:41 80 22 99 Nasal Cannula 4.0 36 06/10/17 20:31 73 18 Nasal Cannula 4.0 36 06/10/17 20:31 36 06/10/17 20:31 73 18 99 Nasal Cannula 4.0 36 06/10/17 20:31 Nasal Cannula 4.0 36 06/10/17 20:31 99 Nasal Cannula 4.0 36 06/10/17 20:15 98.6 83 20 160/75 100 06/10/17 16:33 93 24 99 Nasal Cannula 4.0 36 06/10/17 16:20 79 24 99 Nasal Cannula 4.0 36 06/10/17 16:00 98.0 81 20 145/63 96 06/10/17 12:00 98.2 75 19 137/64 98 Height (Feet): 5 Height (Inches): 11.00 Weight (Pounds): 300 HEENT: anicteric Respiratory/Chest: normal breath sounds Cardiovascular: normal rate Abdomen: soft, non tender Current Medications Medications (Trade) Dose Ordered Sig/Kayla Route PRN Reason Start Time Stop Time Status Last Admin Dose Admin Acetaminophen (Tylenol) 650 mg Q6H PRN ORAL Mild Pain/Temp > 100.5 06/10/17 17:15 07/10/17 17:14 06/11/17 05:57 Acetazolamide (Diamox) 125 mg DAILY ORAL 06/10/17 09:00 07/10/17 08:59 06/11/17 09:35 Albuterol/ Ipratropium (Albuterol/ Ipratropium) 3 ml Q4H PRN HHN Shortness of Breath 06/09/17 13:00 06/14/17 12:59 06/10/17 20:34 Allopurinol (Allopurinol) 300 mg DAILY ORAL 06/09/17 09:00 07/09/17 08:59 06/09/17 09:42 Aripiprazole (Abilify) 20 mg DAILY ORAL 06/09/17 09:00 07/04/17 08:59 06/10/17 09:38 Atorvastatin Calcium (Lipitor) 10 mg BEDTIME ORAL 06/08/17 21:00 07/08/17 20:59 06/09/17 21:12 Dextrose (Dextrose 50%) STAT PRN IV Hypoglycemia 06/08/17 20:00 07/08/17 19:59 Duloxetine HCl (Cymbalta) 60 mg DAILY ORAL 06/09/17 09:00 07/04/17 08:59 06/09/17 09:41 Heparin Sodium (Porcine) (Heparin 5000 units/ml) 5,000 units Q12H SUBQ 06/09/17 06:00 07/06/17 05:59 06/11/17 06:19 Lorazepam (Ativan 2mg/ml 1ml) 2 mg Q4H PRN IV For Anxiety 06/08/17 20:00 06/14/17 19:59 06/11/17 09:43 Nitroglycerin (Ntg) 0.4 mg Q5M X 3 DOSES PRN SL Prn Chest Pain 06/08/17 20:00 07/03/17 18:29 Ondansetron HCl (Zofran) 4 mg Q6H PRN IVP Nausea & Vomiting 06/09/17 00:30 07/03/17 18:29 06/10/17 05:23 Pantoprazole (Protonix) 40 mg EVERY 12 HOURS ORAL 06/08/17 21:00 07/07/17 20:59 06/11/17 09:35 Promethazine HCl/ Codeine (Phenergan with Codeine) 5 ml Q6H PRN ORAL cough 06/08/17 20:00 07/08/17 19:59 Sitagliptin Phosphate (Januvia) 50 mg ACBREAKFAST ORAL 06/09/17 06:30 07/09/17 06:29 06/11/17 06:15 Tamsulosin HCl (Flomax) 0.4 mg BEDTIME ORAL 06/08/17 21:00 07/07/17 20:59 06/09/17 22:14 Temazepam (Restoril) 15 mg HSPRN PRN ORAL Insomnia 06/08/17 20:00 06/15/17 19:59 Theophylline (Marco Antonio-Dur) 200 mg EVERY 12 HOURS ORAL 06/08/17 21:00 07/07/17 20:59 06/11/17 09:36 JUANA CORBIN M.D. Jun 11, 2017 10:18
--- NOTE | 2017-06-11 11:20 | Nephrology Progress Note ---
Assessment/Plan Problem List: (1) Acute renal failure (2) COPD exacerbation (3) Diabetes (4) Obesity Assessment Acute renal failure cr lower COPD / Pneumonia / Leukocytosis h/o Testicular Ca 2002 s/p Lobectomy lung CHF Pleural effusion Psych disease Obesity , DM Left ventricular ejection fraction estimated to be 60-65% to extend visualized. No evidence of left ventricular hypertrophy. Unremarkable renal sonogram. No evidence of hydronephrosis or sonographically appreciable renal stones as questioned clinically. Persistent right lower lung patchy opacities and small right pleural effusion. Findings are slightly decreased compared to exam 4 days prior. Plan Plan: no labs today- PATIENT REFUSES MEDS SELECTIVELY urine studies avoid Nepgrotoxics monitor renal parameters add Januvia down on diamox add Allopurinol Subjective ROS Limited/Unobtainable: No Constitutional: Reports: malaise Objective Objective Last 24 Hour Vital Signs Date Time Temp Pulse Resp B/P (MAP) Pulse Ox O2 Delivery O2 Flow Rate FiO2 06/11/17 08:00 97.2 97 20 117/83 100 06/11/17 07:05 100 Nasal Cannula 4.0 36 06/11/17 07:05 Nasal Cannula 4.0 36 06/11/17 07:04 82 18 Nasal Cannula 4.0 36 06/11/17 04:40 98.5 85 20 121/70 100 06/11/17 00:49 98.3 87 19 114/66 99 06/10/17 20:41 80 22 99 Nasal Cannula 4.0 36 06/10/17 20:31 73 18 Nasal Cannula 4.0 36 06/10/17 20:31 36 06/10/17 20:31 73 18 99 Nasal Cannula 4.0 36 06/10/17 20:31 Nasal Cannula 4.0 36 06/10/17 20:31 99 Nasal Cannula 4.0 36 06/10/17 20:15 98.6 83 20 160/75 100 06/10/17 16:33 93 24 99 Nasal Cannula 4.0 36 06/10/17 16:20 79 24 99 Nasal Cannula 4.0 36 06/10/17 16:00 98.0 81 20 145/63 96 06/10/17 12:00 98.2 75 19 137/64 98 Intake and Output 06/10/17 06/11/17 19:00 07:00 Intake Total 300 ml 360 ml Output Total 500 ml Balance -200 ml 360 ml Intake Oral 300 ml 360 ml Output Urine Total 500 ml # Voids 3 2 Height (Feet): 5 Height (Inches): 11.00 Weight (Pounds): 300 General Appearance: no apparent distress Objective no other changes NERY TODD Jun 11, 2017 11:20
[2017-06-11 12:00] VITALS: BP 118/69
--- NOTE | 2017-06-11 13:48 | Pulmonology Progress Note ---
Assessment/Plan Problems: (1) Pleural effusion (2) CHF (congestive heart failure) (3) COPD exacerbation (4) S/P lobectomy of lung Assessment/Plan bun/creaine better all noted feeling much better no new complains dc home with close f/u by primary Subjective Allergies: Coded Allergies: No Known Allergies (Unverified , 09/09/14) Objective Last 24 Hour Vital Signs Date Time Temp Pulse Resp B/P (MAP) Pulse Ox O2 Delivery O2 Flow Rate FiO2 06/11/17 12:00 97.7 81 20 118/69 100 Room Air 06/11/17 08:00 97.2 97 20 117/83 100 06/11/17 07:05 100 Nasal Cannula 4.0 36 06/11/17 07:05 Nasal Cannula 4.0 36 06/11/17 07:04 82 18 Nasal Cannula 4.0 36 06/11/17 04:40 98.5 85 20 121/70 100 06/11/17 00:49 98.3 87 19 114/66 99 06/10/17 20:41 80 22 99 Nasal Cannula 4.0 36 06/10/17 20:31 73 18 Nasal Cannula 4.0 36 06/10/17 20:31 36 06/10/17 20:31 73 18 99 Nasal Cannula 4.0 36 06/10/17 20:31 Nasal Cannula 4.0 36 06/10/17 20:31 99 Nasal Cannula 4.0 36 06/10/17 20:15 98.6 83 20 160/75 100 06/10/17 16:33 93 24 99 Nasal Cannula 4.0 36 06/10/17 16:20 79 24 99 Nasal Cannula 4.0 36 06/10/17 16:00 98.0 81 20 145/63 96 Intake and Output 06/10/17 06/11/17 19:00 07:00 Intake Total 300 ml 360 ml Output Total 500 ml Balance -200 ml 360 ml Intake Oral 300 ml 360 ml Output Urine Total 500 ml # Voids 3 2 Objective General Appearance: no acute distress, other - A/A/O x 3 morbidly obese AA male in NAD HEENT: normocephalic, atraumatic, anicteric, mucous membranes moist Respiratory/Chest: lungs clear -with moderate air exchange no respiratory distress, no accessory muscle use Cardiovascular: normal rate Abdomen: normal bowel sounds, soft, non tender , obese Extremities: pedal pulses normal, other - +1 edema BLE Neurologic/Psychiatric: no motor/sensory deficits, alert, oriented x 3, responsive Musculoskeletal: normal muscle bulk Current Medications Medications (Trade) Dose Ordered Sig/Kayla Route PRN Reason Start Time Stop Time Status Last Admin Dose Admin Acetaminophen (Tylenol) 650 mg Q6H PRN ORAL Mild Pain/Temp > 100.5 06/10/17 17:15 07/10/17 17:14 06/11/17 05:57 Acetazolamide (Diamox) 125 mg DAILY ORAL 06/10/17 09:00 07/10/17 08:59 06/11/17 09:35 Albuterol/ Ipratropium (Albuterol/ Ipratropium) 3 ml Q4H PRN HHN Shortness of Breath 06/09/17 13:00 06/14/17 12:59 06/10/17 20:34 Allopurinol (Allopurinol) 300 mg DAILY ORAL 06/09/17 09:00 07/09/17 08:59 06/09/17 09:42 Aripiprazole (Abilify) 20 mg DAILY ORAL 06/09/17 09:00 07/04/17 08:59 06/10/17 09:38 Atorvastatin Calcium (Lipitor) 10 mg BEDTIME ORAL 06/08/17 21:00 07/08/17 20:59 06/09/17 21:12 Dextrose (Dextrose 50%) STAT PRN IV Hypoglycemia 06/08/17 20:00 07/08/17 19:59 Duloxetine HCl (Cymbalta) 60 mg DAILY ORAL 06/09/17 09:00 07/04/17 08:59 06/09/17 09:41 Heparin Sodium (Porcine) (Heparin 5000 units/ml) 5,000 units Q12H SUBQ 06/09/17 06:00 07/06/17 05:59 06/11/17 06:19 Lorazepam (Ativan 2mg/ml 1ml) 2 mg Q4H PRN IV For Anxiety 06/08/17 20:00 06/14/17 19:59 06/11/17 09:43 Nitroglycerin (Ntg) 0.4 mg Q5M X 3 DOSES PRN SL Prn Chest Pain 06/08/17 20:00 07/03/17 18:29 Ondansetron HCl (Zofran) 4 mg Q6H PRN IVP Nausea & Vomiting 06/09/17 00:30 07/03/17 18:29 06/10/17 05:23 Pantoprazole (Protonix) 40 mg EVERY 12 HOURS ORAL 06/08/17 21:00 07/07/17 20:59 06/11/17 09:35 Promethazine HCl/ Codeine (Phenergan with Codeine) 5 ml Q6H PRN ORAL cough 06/08/17 20:00 07/08/17 19:59 Sitagliptin Phosphate (Januvia) 50 mg ACBREAKFAST ORAL 06/09/17 06:30 07/09/17 06:29 06/11/17 06:15 Tamsulosin HCl (Flomax) 0.4 mg BEDTIME ORAL 06/08/17 21:00 07/07/17 20:59 06/09/17 22:14 Temazepam (Restoril) 15 mg HSPRN PRN ORAL Insomnia 06/08/17 20:00 06/15/17 19:59 Theophylline (Marco Antonio-Dur) 200 mg EVERY 12 HOURS ORAL 06/08/17 21:00 07/07/17 20:59 06/11/17 09:36 GENEVA HOOPER Jun 11, 2017 13:47
--- NOTE | 2017-06-11 19:59 | General Progress Note ---
Assessment/Plan Problem List: (1) CHF (congestive heart failure) ICD Codes: I50.9 - Heart failure, unspecified SNOMED: 97798525 Qualifiers: Qualified Codes: I50.9 - Heart failure, unspecified (2) COPD exacerbation ICD Codes: J44.1 - Chronic obstructive pulmonary disease with (acute) exacerbation SNOMED: 942356017 (3) Pleural effusion ICD Codes: J90 - Pleural effusion, not elsewhere classified SNOMED: 56550493 (4) Sepsis ICD Codes: A41.9 - Sepsis, unspecified organism SNOMED: 04095390 (5) Preseptal cellulitis of left eye ICD Codes: H00.036 - Abscess of eyelid left eye, unspecified eyelid SNOMED: 763663644 (6) Preseptal cellulitis of left eye ICD Codes: H00.036 - Abscess of eyelid left eye, unspecified eyelid SNOMED: 131889454 (7) Acute renal failure ICD Codes: N17.9 - Acute kidney failure, unspecified SNOMED: 88178668 (8) Diabetes ICD Codes: E11.9 - Type 2 diabetes mellitus without complications SNOMED: 49187866 (9) Obesity ICD Codes: E66.9 - Obesity, unspecified SNOMED: 948690346 Subjective Date patient seen: Jun 11, 2017 Neurologic/Psychiatric: Reports: anxiety, depressed, emotional problems Allergies: Coded Allergies: No Known Allergies (Unverified , 09/09/14) Objective Last 24 Hour Vital Signs Date Time Temp Pulse Resp B/P (MAP) Pulse Ox O2 Delivery O2 Flow Rate FiO2 06/11/17 12:00 97.7 81 20 118/69 100 Room Air 06/11/17 08:00 97.2 97 20 117/83 100 06/11/17 07:05 100 Nasal Cannula 4.0 36 06/11/17 07:05 Nasal Cannula 4.0 36 06/11/17 07:04 82 18 Nasal Cannula 4.0 36 06/11/17 04:40 98.5 85 20 121/70 100 06/11/17 00:49 98.3 87 19 114/66 99 06/10/17 20:41 80 22 99 Nasal Cannula 4.0 36 06/10/17 20:31 73 18 Nasal Cannula 4.0 36 06/10/17 20:31 36 06/10/17 20:31 73 18 99 Nasal Cannula 4.0 36 06/10/17 20:31 Nasal Cannula 4.0 36 06/10/17 20:31 99 Nasal Cannula 4.0 36 06/10/17 20:15 98.6 83 20 160/75 100 Intake and Output 06/10/17 06/11/17 19:00 07:00 Intake Total 300 ml 360 ml Output Total 500 ml Balance -200 ml 360 ml Intake Oral 300 ml 360 ml Output Urine Total 500 ml # Voids 3 2 Height (Feet): 5 Height (Inches): 11.00 Weight (Pounds): 300 General Appearance: no apparent distress, alert Neurologic: alert, oriented x 3, depressed affect Deshaun Hanna M.D. Jun 11, 2017 19:59
--- NOTE | 2017-06-13 14:35 | Discharge Summary ---
Discharge Summary Hospital Course Date of Admission Jun 03, 2017 at 16:04 Date of Discharge Jun 11, 2017 at 16:45 Admitting Diagnosis COPD HPI Lauren Louis is a 42 year old male who was admitted on Jun 03, 2017 at 16: 04 for Chronic Obstructive Pulmonary Disorder Hospital Course [id number] Discharge Discharge Disposition Patient was discharged to Home (01) Discharge Diagnoses: Joelle Armstrong NP Jun 13, 2017 14:35
--- NOTE | 2017-06-14 | Discharge Summary 2 SIG ---
DATE OF ADMISSION: 06/03/2017 DATE OF DISCHARGE: 06/11/2017 CONSULTANTS: 1. Deshaun Hanna M.D. 2. Melecio Lopez M.D. 3. Levar Cat M.D. 4. Leon Kamara M.D. BRIEF HOSPITAL COURSE: The patient is a 42-year-old male with a history of testicular cancer and CHF, presented to ED complaining of shortness of breath that has been ongoing for the past few days. He is status post left lobectomy from a "mass" in his chest in 2002. He was complaining of increased leg swelling. Denies fever or chills. On evaluation at ED, blood work did not show any leukocytosis. Troponin was negative. Chest x-ray done showed lobectomy on the left. There was right pleural effusion with right basilar atelectasis/consolidation. EKG showed normal sinus rhythm with no acute changes. He was given nebulizer treatments and was started on antibiotics. He was given steroids and Lasix. He was admitted to telemetry for acute COPD exacerbation and CHF. He was given respiratory treatments. EKG showed normal sinus rhythm with normal P-wave axis and questionable right atrial enlargement. There were nonspecific T-wave changes, basically inversion in leads I and aVL. There is a delay in R-wave progression. He had a venous duplex of lower extremity that was negative for DVT. Echocardiogram showed ejection fraction of 60% to 65%. Exam was technically limited and difficult due to poor acoustic window. There was no evidence of left ventricular hypertrophy and no evidence of pericardial or pleural effusion. Influenza A and B screen were negative. The patient was initially given Zosyn and Zithromax was added for atypical coverage. The patient was placed on heparin drip. Zaroxolyn was added. Renal ultrasound done, showed unremarkable kidneys with no evidence of hydronephrosis. He had been noncompliant with medication and was irritable and depressed. He refuses medications selectively. He had hyponatremia and was given 3% saline solution. Cortisone level was 14. Hemoglobin A1c was 7.2. He was given Januvia. Lasix drip was eventually discontinued. Blood culture did not isolate any growth and sputum culture showed growth of normal tami. He received six days of antibiotic and was eventually monitored off antibiotic treatment. He was eventually discharged home. FINAL DIAGNOSES: 1. Acute chronic obstructive pulmonary disease exacerbation/asthma. 2. Pneumonia. 3. Left pleural effusion. 4. Acute renal failure. 5. Acute on chronic diastolic congestive heart failure. 6. Obesity. 7. Diabetes mellitus, out of control. 8. History of lung cancer status post lobectomy. 9. History of testicular carcinoma. 10. Hyponatremia. DISPOSITION: The patient was discharged home. DISCHARGE MEDICATIONS: Refer to medication list. DISCHARGE INSTRUCTIONS: Follow up with PMD in a week. Jacquie Coelho M.D. I have been assigned to dictate discharge summary on this account and I was not involved in the patient's management. Joelle Armstrong N.P. DR: FARIBA JOB#: [id number] CC: KEON
== END 2017-06-11 16:45 | disposition home or self-care (01) | DRG 190 ==
LOC: EDBD 15:15 → EMR 16:02 → 2E 16:04 → EDBEDREQ 17:47 → 3E 06-08 19:40
DX: J44.0 Chronic obstructive pulmonary disease with (acute) lower respiratory infection (principal); I50.33 Acute on chronic diastolic (congestive) heart failure; J18.9 Pneumonia, unspecified organism; N17.9 Acute kidney failure, unspecified; J45.901 Unspecified asthma with (acute) exacerbation; E87.1 Hypo-osmolality and hyponatremia; Z68.41 Body mass index [BMI] 40.0-44.9, adult; J44.1 Chronic obstructive pulmonary disease with (acute) exacerbation; E66.01 Morbid (severe) obesity due to excess calories; F17.210 Nicotine dependence, cigarettes, uncomplicated; F32.9 Major depressive disorder, single episode, unspecified; F41.9 Anxiety disorder, unspecified; E87.6 Hypokalemia; Z85.47 Personal history of malignant neoplasm of testis; Z85.118 Personal history of other malignant neoplasm of bronchus and lung; Z91.14 Patient's other noncompliance with medication regimen
CPT/HCPCS: 36415; 71045; 76775; 80048; 80053; 80061; 81003; 82533; 82550; 82553; 82977; 83036; 83605; 83735; 83880; 83935; 84100; 84300; 84443; 84484; 84550; 85007; 85025; 85610; 85730; 86140; 86703; 86710; 87040; 87070; 87205; 93005; 93306; 93970; 94640; 94664; 94760; 99285; J2405; J7620; J8499